=== PATIENT | female | born 1940 | race Caucasian/White ===

== ENCOUNTER → 2017-11-13 11:22 | Outpatient (CLI) | payer MEDICARE, SELFPAY ==
--- NOTE | 2017-11-13 11:27 | BI_ITS ---
MAMMOGRAPHY - BILATERAL SCREENING 3-D SHERIDAN SYNTHESIS REASON FOR EXAM: Female, 77 years old. Bilateral Screening 3-D tomosynthesis PERTINENT HISTORY: Asymptomatic. Bilateral excisional biopsies 1960. No significant family history. TECHNIQUE: 2-D mammograms and 3-D Sheridan synthesis of the breast (s) were performed. CAD was performed. COMPARISON: 01/11/2016 through 06/25/2013 FINDINGS: The breast composition is composed of scattered fibroglandular density. No new asymmetric density, dominant mass, dense spiculated masses, abnormal clustered microcalcifications, architectural distortion, skin thickening or nipple retraction identified. Coarse benign-appearing calcifications. No new abnormality identified with tomosynthesis. There has been no significant change since the prior study. BI/SCREENING MAMM (CAD), BILAT IMPRESSION: No mammographic signs of malignancy. Routine yearly mammograms recommended. ASSESSMENT CATEGORY: BIRADS Category 2: Benign. A letter regarding these results will be sent to the patient by the facility within 30 days. FOLLOW UP RECOMMENDATION: Yearly follow up mammogram recommended. (A) Negative results should not deter biopsy as a palpable lesion should be followed on clinical grounds and biopsy performed if clinically persistent for 3 months or increasing size. Approximately 10% of breast cancers are not detected by mammography. A normal mammogram should not delay biopsy of a clinically suspicious abnormality. Electronically Signed: Gerson Felipe, at 20:54 EDT Tel , Service support ,
== END ==
PROVIDERS: Family Provider Nurse Practitioner; PCP Nurse Practitioner; Visit Provider Nurse Practitioner
DX: Z78.0 Asymptomatic menopausal state (principal); Z12.31 Encounter for screening mammogram for malignant neoplasm of breast
CPT/HCPCS: 77063; 77067; 77080

== ENCOUNTER → 2019-01-06 | Outpatient (CLI) | payer MEDICARE, SELFPAY ==
--- NOTE | 2019-01-06 12:54 | BI_ITS ---
MAMMOGRAPHY - BILATERAL SCREENING REASON FOR EXAM: Female, 78 years old. Routine annual screening examination. PERTINENT HISTORY: Non-contributory. History of bilateral excisional breast biopsies. TECHNIQUE: Digital bilateral breast sheridan (3D mammographic acquisition) in the CC and MLO projections. 2-D mediolateral oblique (MLO) and craniocaudad (CC) views of both breasts were obtained. CAD: Full Field Digital Mammography with Computer Added Detection was performed. COMPARISON: Comparison is made with prior study dated November 13, 2017 and January 11, 2016. FINDINGS: Breast Composition: There are scattered areas of fibroglandular density. There are no dominant masses or suspicious calcifications. Stable coarse benign-appearing calcifications more prominent in the right breast. No focal cluster is seen. No other significant abnormalities are identified. There has been no significant change since the prior study. BI/SCREEN MAMM (CAD) W/SHERIDAN BILAT IMPRESSION: Stable bilateral screening mammogram. Yearly follow-up mammogram recommended. (A) ASSESSMENT CATEGORY: BIRADS Category 2: Benign. A letter regarding these results will be sent to the patient by the facility within 30 days. Approximately 10% of breast cancers are not detected by mammography. A normal mammogram should not delay biopsy of a clinically suspicious abnormality. [id number] Electronically Signed: Nawaf Morelos, at 14:23 EDT , Service support ,
== END | disposition home or self-care (01) ==
LOC: OPBI 12:52
PROVIDERS: Family Provider Nurse Practitioner; PCP Nurse Practitioner; Referring Provider Nurse Practitioner; Visit Provider Nurse Practitioner
DX: Z12.31 Encounter for screening mammogram for malignant neoplasm of breast (principal)
CPT/HCPCS: 77063; 77067

== ENCOUNTER 2019-04-25 14:50 | Emergency (ER) | payer MEDICARE, SELFPAY ==
[2019-04-25 14:50] VITALS: BP 156/81; PULSE 68; RESP 16; TEMP 36.6; O2SAT 97; BMI 21.2
--- NOTE | 2019-04-25 15:07 | ED.VISSUMM ---
- ER Visit Summary Date of Service: 04/25/19 Chief Complaint: [Laceration to right ring finger] History of Present Illness: The patient is a 79 F [presents to the emergency department complaint of a laceration to the right ring finger that occurred about an hour ago. Patient states that she was cutting some kindling for a fire when she accidentally bumped to the sawblade with her finger when she went to reach to turn it off. Patient is right-hand dominant. She is unsure of her last tetanus shot.] Physical Examination: [Right ring finger-patient has a 2.5 cm laceration over the distal phalanx and involving the area of the volar aspect of the DIP joint. Patient has normal flexion extension against resistance. She is neurovascular intact distally. No significant bleeding noted currently.] The wound edges are macerated and irregular given the table saw injury. Test Results: [Of the right ring finger obtained which did not show any involvement of the phalanx. No particulate foreign bodies noted. Interpretation by radiology pending.] Emergency Department Course and Treatment: [Laceration repair-wound sterilely draped and prepped. Right ring finger anesthetized using a digital block total of 6 cc of 1% lidocaine. Wound cleansed with Shur-Clens and irrigated with copious saline. The wound was inspected and I do not see any evidence of involvement of Lexer tendon. The laceration actually is approximately 7 mm distal to the DIP joint. Using 5-0 nylon a total of 4 single interrupted sutures placed with good wound edge approximation. Patient tolerated procedure well. Clean dressing was applied. Patient received Adacel tetanus booster. Patient was given Keflex 500 mg p.o.] Treatment Plan: [We will be treated with Keflex for 7 days. Patient advised to follow-up in 10 days for suture removal. Patient advised to return if increasing pain, redness, swelling, purulent drainage, or conditions worsen anyway.] Disposition: [Discharged home in stable condition.] Impression: [Right ring finger laceration-simple repair] This note was generated with [email or web address] software. It may contain incorrect words, spelling, and punctuation that were not noted in review of the chart prior to signing ED Disposition - Plan for ED Patient: Referrals: Urvashi Aiken, REBECCA-C [Primary Care Provider] -
--- NOTE | 2019-04-25 15:20 | RAD_ITS ---
STUDY: X-RAY - RIGHT HAND, ATTENTION 4 FINGER REASON FOR EXAM: Female, 79 years old. Laceration TECHNIQUE: 3 view(s) of the finger were obtained. COMPARISON: None. FINDINGS: There is no evidence of fracture or dislocation. There are no significant degenerative changes. There are no radiodense foreign bodies. There is a soft tissue laceration noted distally in the fourth finger. RAD/Finger(s) Min 2 Views IMPRESSION: Soft tissue laceration distally in the fourth finger. No fracture or dislocation. No radiodense foreign body. Electronically Signed: Ehsan Hanks, at 15:46 EST Tel , Service support ,
--- NOTE | 2019-04-25 15:45 | DCINST.ED_ITS ---
ED Disposition - Plan for ED Patient: Instructions: LACERATION, Hand Prescriptions: Cephalexin [Keflex] 500 mg PO Q6 #28 cap Prescription Printed Referrals: Urvashi Aiken, ASSOCIATE [employer] DATA [employer]NALYT[employer]-C [Primary Care Provider] - 10 Day for suture removal
--- NOTE | 2019-04-25 15:45 | ED.DEP ---
ED Disposition - Plan for ED Patient: Instructions: LACERATION, Hand Prescriptions: Cephalexin [Keflex] 500 mg PO Q6 #28 cap Prescription Printed Referrals: Urvashi Aiken, WAITER/WAITRESS BUFFET-C [Primary Care Provider] - 10 Day for suture removal
[2019-04-25] MEDS: Diphth,Pertuss(Acell),Tet Vac 0.5 ML Vial IM (15:46)
[2019-04-25] MEDS: Cephalexin 250 MG Capsule 500 MG PO (16:01)
[2019-04-25 16:02] VITALS: BP 107/97; RESP 14
== END 2019-04-25 16:05 | disposition home or self-care (01) ==
LOC: ED 15:09
PROVIDERS: Emergency Provider Emergency Medicine; PCP Nurse Practitioner; Referring Provider Nurse Practitioner
DX: S61.214A Laceration without foreign body of right ring finger without damage to nail, initial encounter (principal); Z23 Encounter for immunization; I10 Essential (primary) hypertension; Z79.899 Other long term (current) drug therapy; W29.8XXA Contact with other powered hand tools and household machinery, initial encounter; Y93.89 Activity, other specified; Y92.009 Unspecified place in unspecified non-institutional (private) residence as the place of occurrence of the external cause; Y99.8 Other external cause status
CPT/HCPCS: 12001; 73140; 90471; 90715; 99284

== ENCOUNTER → 2019-12-29 | Outpatient (CLI) | payer MEDICARE, SELFPAY ==
--- NOTE | 2019-12-29 10:31 | BD_ITS ---
STUDY: DUAL ENERGY X-RAY ABSORPTIOMETRY / DXA REASON FOR EXAM: Female, 79 years old. 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 COMPARISON: Comparison is made with prior study dated 07/08/2014. FINDINGS: Lumbar Spine (L1-L4): g/cm2 (1.014) / T-score (-1.4) / Z-score (0.4) Findings are suggestive of osteopenia with a low fracture risk. Increased thoracic kyphosis. Left Femur Total: g/cm2 (0.792) / T-score (-1.7) / Z-score (0.2) Left Femoral Neck: g/cm2 (0.864) / T-score (-1.2) / Z-score (0.8) Right Femur Total: g/cm2 (0.791) / T-score (-1.7) / Z-score (0.2) Right Femoral Neck: g/cm2 (0.876) / T-score (-0.2) / Z-score (0.9) The T-Scores on the most recent prior examination were: Lumbar Spine (L1-L4): There has been improvement of bone density since the previous examination. Left Femur Total: which represents a worsening of 2.2%. Right Femur Total: which represents an improvement of 5.3%. BD/Dexa Bone Density Study IMPRESSION: The patient is considered osteopenic as outlined below according to World [place] Organization (WHO) criteria with a moderate fracture risk. There has been improvement of bone density since the previous examination. Reference Information: The T-score is the number of standard deviations above or below the standard which is normal for young adults at their peak bone mineral density. The World Health Organization (WHO) interprets the T-scores as follows: Above -1 Normal bone density Between -1 and -2.5 Osteopenia Equal to / or below -2.5 Osteoporosis As a practical clinical guideline, osteopenia may be graded as follows: Mild -1 through -1.5 Moderate -1.6 through -2.0 Severe -2.1 through -2.4 The Z-score is the number of standard deviations above or below age-matched controls. A Z-score of less than -1.5 would be considered abnormal. References: 1. NIH Osteoporosis and Related Bone Diseases http://www.osteo.org 2. International Society for Clinical Densitometry http://www.iscd.org 3. National Osteoporosis Foundation http://www.nof.org Electronically Signed: Nawaf Morelos, at 12:43 EDT , Service support ,
== END | disposition home or self-care (01) ==
LOC: OPBD 10:26
PROVIDERS: PCP Nurse Practitioner; Referring Provider Nurse Practitioner; Visit Provider Nurse Practitioner
DX: M81.0 Age-related osteoporosis without current pathological fracture (principal)
CPT/HCPCS: 77080

== ENCOUNTER → 2020-09-09 07:11 | Outpatient (CLI) | payer MEDICARE, SELFPAY ==
[2020-09-01 14:06] VITALS: BMI 22.2
--- NOTE | 2020-09-09 07:12 | ECHOD_ITS ---
Reason For Study: Nonrheumatic MVP Procedure This was a 2D Doppler, Color Flow transthoracic echocardiogram. The exam was of adequate technical quality. Exam performed in department. Left Ventricle Normal LV size. Left ventricular systolic function is normal. The estimated ejection fraction is 60 %. Diastolic function is indeterminate. No regional wall motion abnormalities noted. Right Ventricle Normal RV size. Normal systolic function. Atria The left atrium is mildly enlarged. Normal right atrium. No doppler evidence for ASD. Mitral Valve There is no mitral annular calcification. Moderate diffuse mitral valve thickening. Myxomatous mitral valve. Moderate mitral valve prolapse. Moderate (2+) mitral valve insufficiency. Tricuspid Valve Normal tricuspid valve. Mild to moderate (1-2+) tricuspid valve insufficiency. Right ventricular systolic pressure estimated to be 30 mmHg. Aortic Valve Trisinus/trileaflet aortic valve. Normal aortic valve. Pulmonic Valve The pulmonic valve is not well visualized. Great Vessels The aortic root is not well visualized. Pericardium/Pleural No pericardial effusion. MMode/2D Measurements & Calculations LVIDd: 4.3 cm IVSd: 0.95 cm LA dimension: 3.9 cm LVIDs: 2.1 cm LVPWd: 0.99 cm RVDd: 3.3 cm FS: 51.2 % LAV(MOD-bp): 57.6 ml LA A4 area: 19.9 cm2 RA A4 area: 14.2 cm2 LAV(MOD-bp) Indexed: 40.3 ml/m2 LAV(MOD-sp2): 54.9 ml LAV(MOD-sp4): 60.0 ml Time Measurements MV dec time: 0.52 sec Doppler Measurements & Calculations MV E max francesco: 51.1 cm/sec Lat Peak E' Francesco: 4.4 cm/sec Med Peak E' Francesco: 4.5 cm/sec MV A max francesco: 80.9 cm/sec E/E' lat: 11.6 E/E' med: 11.5 MV E/A: 0.63 MV V2 max: 86.7 cm/sec MV P1/2t max francesco: 62.1 cm/sec Ao V2 max: 143.8 cm/sec MV max P.0 mmHg MV P1/2t: 95.6 msec Ao max P.3 mmHg MV V2 mean: 40.1 cm/sec MV dec slope: 190.4 cm/sec2 MV mean P.79 mmHg MVA(P1/2t): 2.3 cm2 MV V2 VTI: 28.9 cm LV V1 max: 116.1 cm/sec PA V2 max: 84.7 cm/sec LV V1 max P.4 mmHg PI dec slope: 165.5 cm/sec2 TR max francesco: 261.7 cm/sec TR max P.4 mmHg ECHO/Echo Complete Interpretation Summary Left ventricular systolic function is normal. The estimated ejection fraction is 60 %. The left atrium is mildly enlarged. Myxomatous mitral valve. Moderate diffuse mitral valve thickening. Moderate mitral valve prolapse. Moderate (2+) mitral valve insufficiency. Mild to moderate (1-2+) tricuspid valve insufficiency. Right ventricular systolic pressure estimated to be 30 mmHg. Diastolic function is indeterminate. Ordering Physician: Juan Manuel Robertson Referring Physician: Urvashi Aiken Performed By: Iftikhar English RCS
--- NOTE | 2020-09-09 08:56 | STRESSREP_ITS ---
Stress Test Report Date: 09-09-2020 Procedure: Exercise tolerance test/imaging study Indications: Near syncope; sinus bradycardia; abnormal ECG Consent: Per the patient Procedure: The patient exercised on a Pa protocol for 5 minutes and 43 seconds completing Stage I and 2 minutes and 43 seconds of Stage II achieving a peak heart rate of 108 bpm (77% predicted maximal heart rate) with a peak blood pressure 162/80 mmHg and a peak MET capacity of 7 METs. The baseline ECG demonstrated sinus bradycardia; right IVCD pattern; nonspecific T wave abnormality. The peak exercise ECG demonstrated continued right IVCD pattern with no obvious ECG changes. There was an occasional PVC during exercise and recovery. The functional capacity was considered. There was no complaint of chest discomfort during exercise or recovery. The examination was discontinued secondary to leg discomfort and fatigue. Impression: 1. Technically adequate (percent predicted maximal heart rate greater than 85%) exercise tolerance test 2. Peak exercise ECG continued right IVCD pattern with no obvious ECG changes 3. There was an occasional PVC during exercise and recovery 4. Nuclear images pending Myocardial perfusion imaging study: Technique: The patient was injected with 11.8 mCi of technetium 99m Cardiolite and subsequently rest SPECT Cardiolite nuclear imaging was obtained in the horizontal long, vertical long, and short axis views. The patient exercised on a Pa protocol for 5 minutes and 43 seconds completing Stage I and 2 minutes and 43 seconds of Stage II achieving a peak heart rate of 108 bpm (77% predicted maximal heart rate) with a peak blood pressure 162/80 mmHg and a peak MET capacity of 7 METs. The patient was injected with 32.5 mCi of technetium 99m Cardiolite and subsequently stress SPECT Cardiolite nuclear imaging was obtained in the horizontal long, vertical long, and short axis views. A gated Cardiolite study at peak stress was obtained. Interpretation: Rest and stress SPECT Cardiolite nuclear imaging status post realignment, normalization, and attenuation correction, demonstrates the appearance of relative uniform tracer uptake and myocardial perfusion appearing within normal limits. There is end systolic thickening and brightening. The gated Cardiolite study demonstrates myocardial thickening and inward wall motion. The reported LVEF is 79%. Impression: 1. Rest and stress SPECT Cardiolite nuclear imaging demonstrate relative uniform tracer uptake and myocardial perfusion appearing within normal limits. 2. The gated Cardiolite study reports an LVEF of 79%. This note was generated with [employer] software. It may contain incorrect words, spelling, and punctuation that were not noted in checking the note before signing.
== END ==
PROVIDERS: PCP Nurse Practitioner; Referring Provider Internal Medicine Cardiovascular Disease; Visit Provider Internal Medicine Cardiovascular Disease
DX: I34.1 Nonrheumatic mitral (valve) prolapse (principal); R94.31 Abnormal electrocardiogram [ECG] [EKG]; R55 Syncope and collapse; E78.00 Pure hypercholesterolemia, unspecified; I10 Essential (primary) hypertension
CPT/HCPCS: 78452; 93017; 93306; A9500; A4216

== ENCOUNTER → 2021-09-29 | Outpatient (CLI) | payer MEDICARE, SELFPAY ==
--- NOTE | 2021-09-29 10:05 | ECHOD_ITS ---
Reason For Study: MVP Procedure This was a 2D Doppler, Color Flow transthoracic echocardiogram. The exam was of adequate technical quality. Exam performed in department. Left Ventricle Normal LV size. Left ventricular systolic function is normal. The estimated ejection fraction is 65 %. There is evidence of diastolic dysfunction. No regional wall motion abnormalities noted. Right Ventricle Normal RV size. Normal systolic function. Atria The left atrium is moderately enlarged. Normal right atrium. Hypermobile atrial septum. No doppler evidence for ASD. Mitral Valve There is no mitral annular calcification. Moderate diffuse mitral valve thickening. Myxomatous mitral valve. Moderate mitral valve prolapse, posterior leaflet. Moderate (2+) mitral valve insufficiency. Tricuspid Valve Normal tricuspid valve. Mild tricuspid valve insufficiency. Right ventricular systolic pressure estimated to be 30 mmHg. Aortic Valve Trisinus/trileaflet aortic valve. Normal aortic valve. Pulmonic Valve Normal pulmonic valve. Mild (1+) pulmonic valve insufficiency. Great Vessels Normal sized aortic root. Calcified aortic root. Pericardium/Pleural Trivial pericardial effusion. There are no echocardiographic indications of cardiac tamponade. MMode/2D Measurements & Calculations LVIDd: 4.1 cm IVSd: 0.79 cm Ao root diam: 2.9 cm LVIDs: 2.4 cm LVPWd: 0.89 cm RVDd: 2.8 cm FS: 43.1 % LAV(MOD-bp): 66.0 ml LVAd ap4: 21.8 cm2 SV(MOD-sp4): 38.8 ml LAV(MOD-bp) Indexed: 47.1 ml/m2 LVLd ap4: 6.2 cm LAV(MOD-sp2): 63.3 ml EDV(MOD-sp4): 62.9 ml LAV(MOD-sp4): 61.3 ml EDV(sp4-el): 64.7 ml LVAs ap4: 11.8 cm2 LVLs ap4: 5.0 cm ESV(MOD-sp4): 24.1 ml ESV(sp4-el): 23.8 ml EF(MOD-sp4): 61.6 % EF(sp4-el): 63.2 % SV(sp4-el): 40.9 ml LA A4 area: 19.7 cm2 LA dimension(2D): 4.4 cm RA A4 area: 11.9 cm2 Doppler Measurements & Calculations MV E max francesco: 59.3 cm/sec Lat Peak E' Francesco: 5.6 cm/sec Med Peak E' Francesco: 3.4 cm/sec MV A max francesco: 74.7 cm/sec E/E' lat: 10.6 E/E' med: 17.3 MV E/A: 0.79 Ao V2 max: 150.8 cm/sec LV V1 max: 124.2 cm/sec PA V2 max: 91.5 cm/sec Ao max P.1 mmHg LV V1 max P.2 mmHg Ao V2 mean: 93.4 cm/sec Ao mean P.0 mmHg Ao V2 VTI: 30.8 cm TR max francesco: 260.2 cm/sec TR max P.1 mmHg ECHO/Echo Complete Interpretation Summary Left ventricular systolic function is normal. The estimated ejection fraction is 65 %. The left atrium is moderately enlarged. Hypermobile atrial septum. Myxomatous mitral valve. Moderate diffuse mitral valve thickening. Moderate mitral valve prolapse, posterior leaflet Moderate (2+) mitral valve insufficiency. Mild tricuspid valve insufficiency. Mild (1+) pulmonic valve insufficiency. Calcified aortic root. Trivial pericardial effusion. There are no echocardiographic indications of cardiac tamponade. Right ventricular systolic pressure estimated to be 30 mmHg. There is evidence of diastolic dysfunction. Ordering Physician: Deanna Breen Referring Physician: Giovanna Ruggiero Performed By: Mindy Thompson, TURNER, RVT
== END | disposition home or self-care (01) ==
LOC: CVS 10:00
PROVIDERS: PCP Nurse Practitioner Family; Visit Provider Physician Assistant Medical
DX: I34.1 Nonrheumatic mitral (valve) prolapse (principal)
CPT/HCPCS: 93306

== ENCOUNTER → 2022-01-02 | Outpatient (CLI) | payer MEDICARE, SELFPAY ==
--- NOTE | 2022-01-02 10:31 | BI_ITS ---
MAMMOGRAPHY - BILATERAL SCREENING REASON FOR EXAM: Female, 81 years old. Routine annual screening examination. PERTINENT HISTORY: Non-contributory. Remote bilateral excisional breast biopsies. TECHNIQUE: Digital bilateral breast sheridan (3D mammographic acquisition) in the CC and MLO projections. 2-D mediolateral oblique (MLO) and craniocaudad (CC) views of both breasts were obtained. CAD: Full Field Digital Mammography with Computer Added Detection was performed. COMPARISON: Comparison is made with prior study 01/06/2019 and 11/13/2017. FINDINGS: Breast Composition: There are scattered areas of fibroglandular density. There are no dominant masses or suspicious calcifications. No other significant abnormalities are identified. There has been no significant change since the prior study. BI/SCRN MAMM (CAD)W/SHERIDAN BILAT IMPRESSION: Stable bilateral screening mammogram. Yearly follow-up mammogram recommended. (A) ASSESSMENT CATEGORY: BIRADS Category 1: Negative. A letter regarding these results will be sent to the patient by the facility within 30 days. Approximately 10% of breast cancers are not detected by mammography. A normal mammogram should not delay biopsy of a clinically suspicious abnormality. [id number] Electronically Signed: Nawaf Morelos MD at 12:18 EDT ,
--- NOTE | 2022-01-02 10:36 | BD_ITS ---
STUDY: DUAL ENERGY X-RAY ABSORPTIOMETRY / DXA REASON FOR EXAM: Female, 81 years old. 733.00OsteoporosisBONE DENSITY REASON FOR EXAM TECHNIQUE: Bone Mineral Density (BMD) measurements of lumbar spine and bilateral hips were obtained. COMPARISON: Comparison is made with prior study 12/29/2019. FINDINGS: Lumbar Spine (L1-L4): g/cm2 (0.956) / T-score (-0.8) / Z-score (1.8) Findings are suggestive of normal bone density with a low fracture risk. Left Femur Total: g/cm2 (0.798) / T-score (-1.2) / Z-score (0.9) Left Femoral Neck: g/cm2 (0.743) / T-score (-1.0) / Z-score (1.3) Right Femur Total: g/cm2 (0.787) / T-score (-1.3) / Z-score (0.8) Right Femoral Neck: g/cm2 (0.736) / T-score (-1.0) / Z-score (1.3) The T-Scores on the most recent prior examination were: Lumbar Spine (L1-L4): There has been improvement of bone density since the previous examination. Left Femur Total: which represents an improvement of 9%. Right Femur Total: which represents an improvement of 7.6%. BD/Dexa Bone Density Study IMPRESSION: The patient is considered osteopenic as outlined below according to World [place] Organization (WHO) criteria with a low fracture risk. There has been improvement of bone density since the previous examination. Reference Information: The T-score is the number of standard deviations above or below the standard which is normal for young adults at their peak bone mineral density. The World Health Organization (WHO) interprets the T-scores as follows: Above -1 Normal bone density Between -1 and -2.5 Osteopenia Equal to / or below -2.5 Osteoporosis As a practical clinical guideline, osteopenia may be graded as follows: Mild -1 through -1.5 Moderate -1.6 through -2.0 Severe -2.1 through -2.4 The Z-score is the number of standard deviations above or below age-matched controls. A Z-score of less than -1.5 would be considered abnormal. References: 1. NIH Osteoporosis and Related Bone Diseases www osteo.org 2. International Society for Clinical Densitometry www iscd.org 3. National Osteoporosis Foundation www nof.org Electronically Signed: Nawaf Morelos MD at 12:50 EDT ,
== END | disposition home or self-care (01) ==
LOC: OPBD 10:30
PROVIDERS: PCP Nurse Practitioner Family; Visit Provider Nurse Practitioner Family
DX: Z12.31 Encounter for screening mammogram for malignant neoplasm of breast (principal); M85.80 Other specified disorders of bone density and structure, unspecified site; Z78.0 Asymptomatic menopausal state
CPT/HCPCS: 77063; 77067; 77080

== ENCOUNTER 2023-03-08 11:30 | Outpatient (RCR) | payer MEDICARE, SELFPAY ==
--- NOTE | 2023-03-05 13:46 | HP.PTEVAL ---
Patient's Visit Information Visit Information Visit Information: NURIA GAMEZ is a 82 year old F referred to Physical Therapy by Giovanna Ruggiero NP-C with a diagnosis of ACUTE THORACIC PAIN ,LBP WITH RADICULOPATHY. Date of Evaluation: 03/05/23 Physical Therapist: Christiano Schwab, PT, Cert MDT, OCS Visit Plan Frequency: 2x /Week Duration: 4 Weeks Plan: PRECAUTION: OSTEOPROSIS PT INVERENTION POSTURAL EX'S ,THORACIC STRENGTHNEING ,DLS , HIP STRENGTHENING AND FUNCTIONAL STRENGTHNEING Subjective Subjective: This 82 y/o female presents to physical therapy with thoracic and lumbar pain. Patient has pain mostly mid thoracic pain and upper lumbar no leg symptoms. Patient has mid back pain for ~ `1 month. Patient did have episode thoracic pain lifting box of water. bottle Initially, pain worse especially turning to bed. 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 No medication, Aggravating factors standing ,walking bending and twisting. Alleviating factors sitting ,heat, Coughing/sneezing -. Bowel/bladder -, Denies paresthesia/tingling-. Patient has no falls . Patient has osteoporosis and on Prolia injection every 6 months . Patient pain affects QOL and function with ADLS /housework's tasks. Patient to decrease pain. SOCIAL: VOCATION: retired Pain Bilateral Back: Pain Intensity (Out of 10): 4 Pain Intensity Range: 10 Comment: thoracic Objective Objective: POSTURE: mild/mod thoracic kyphosis with scoliosis PALPATION: tender paraspinals thoracic NEURO: denies paresthesia/tingling , BUE AROM: WFL MMT: quads/hams 4-/5 ,hip flexion 3+/5 ,ankle 4/5 ,BUE 4/5 except shoulder 3+/5 LUMBAR ROM: mod loss flexion , min loss extension ,side glides min loss THORACIC ROM: flexion mod loss ,extension extension mod loss ,rotation mod loss Special Tests L/S Slump test left side: Negative L/S Slump test right side: Negative L/S Left Straight Leg Raise: Negative L/S Right Straight Leg Raise: Negative Balance/Special Test Scores Oswestry Low Back Score: 21 Goals Goal 1:: Patient to be I with HEP for back Goal Time Frame: 4-6 Weeks Goal 2:: Patient to improve posture for ADLS 80 % of the time Goal Time Frame: 4-6 Weeks Goal 3:: Patient to demonstrate 50% improvement with increase function and less pain Goal Time Frame: 4-6 Weeks Goal 4:: Patient improve thoracic /lumbar ROM for function of recovery for ADLS Goal Time Frame: 4-6 Weeks Goal 5:: Patient to improve back oswestry score by 5 points to improve QOL and function Goal Time Frame: 4-6 Weeks Rehabilitation Potential Physical Therapy Diagnosis: This patient has thoracic pain with wedge compression fractures with pain ,decrease ROM for function ,weakness and posture thus will need skilled PT Rehabilitation Potential: Good Anticipated Interventions Patient/Client Instruction: Educate patient on: Condition and Plan of Care For the Purpose of:: To decrease pain, To increase ROM, To improve muscle performance and motor function, To improve ability to perform ADL's, To increase tolerance to activity/condition/position, To improve ability of physical actions for home/community/work/leisure, To improve health of tissue, To decrease soft tissue restriction, To increase flexibility/ROM and To improve tolerance to ADL's Therapeutic Exercise to Include: Strength training, Postural training, Flexibilty training, Active ROM and Dynamic Lumbar Stabilization Comment: HIP For the Purpose of:: To decrease pain, To increase ROM, To improve muscle performance and motor function, To improve ability to perform ADL's, To increase tolerance to activity/condition/position, To improve ability of physical actions for home/community/work/leisure, To improve health of tissue, To decrease soft tissue restriction and To increase flexibility/ROM Text: Thank you for the opportunity to evaluate your patient. For Medicare and Medicare HMO plans, please review the plan of care and approve it. It will need to be FAXED BACK to us at [phone] for Medicare purposes. For Medicare only, by signing this I certify the plan of care. Please let me know if there are questions or concerns regarding this plan of care. Physician Signature: Date:
== END 2023-03-08 19:00 | disposition home or self-care (01) ==
LOC: PT 11:30
PROVIDERS: PCP Nurse Practitioner Family; Visit Provider Nurse Practitioner Family
DX: M51.36 Other intervertebral disc degeneration, lumbar region (principal)
CPT/HCPCS: 97110; 97162

== ENCOUNTER 2023-05-17 14:50 | Inpatient (IN) | payer MEDICARE, SELFPAY ==
[2023-05-17] VITALS (16 sets, daily range): BP systolic 99–158; BP diastolic 58–83; PULSE 61–74; RESP 14–24; TEMP 36.2–37.1; O2SAT 2–100; BMI 38.7; BMI 22.3
--- NOTE | 2023-05-17 14:53 | CT_ITS ---
STUDY: CT HEAD STROKE PROTOCOL W/O CONTRAST INJECTION REASON FOR EXAM: Female, 83 years old. Neuro deficit, acute, stroke suspected RADIATION DOSAGE (If Supplied By Facility): CTDIvol = ( 44.99 ) mGy, DLP = ( 829.85 ) mGycm TECHNIQUE: Transaxial CT imaging of the brain was performed without administration of intravenous contrast material. Individualized dose optimization techniques were used for this CT. COMPARISON: No relevant priors. FINDINGS: Normal soft tissue structures. Normal calvarium. There is mild cerebral atrophy with widening of the extra-axial spaces and ventricular dilatation. There are areas of decreased attenuation within the white matter tracts of the supratentorial brain, consistent with microvascular disease changes. Focal decreased attenuation in the right frontal lobe suggestive of old ischemic change. Normal basal ganglia and thalami. Normal brainstem. Normal cerebellum. There is no intracranial hemorrhage. There are no findings of an acute ischemic infarction. Atherosclerotic calcification of the cavernous portions of the internal carotid arteries bilaterally. Minimal mucosal thickening along the posterior aspect of the left maxillary sinus. ASPECT score: 10 CT/STROKE Brain/Head without Cont IMPRESSION: Chronic involutional changes of the brain. Findings suggestive of old ischemic change in the anterior right frontal lobe. N.B. : The above Results were Read Back by Nawaf Morelos MD to Dr Odilia DO, and understanding confirmed on 05/17/2023 15:09:16 (ET). Electronically Signed: Nawaf Morelos MD at 15:10 EST ,
--- NOTE | 2023-05-17 14:53 | CT_ITS ---
STUDY: CTA HEAD AND NECK WITH CONTRAST REASON FOR EXAM: Female, 83 years old. Neuro deficit, acute, stroke suspected RADIATION DOSAGE (If Supplied By Facility): CTDIvol = ( 17.08 ) mGy, DLP = ( 477.86 ) mGycm TECHNIQUE: CT angiography was performed with a multi-detector CT scanner. Data acquisition was obtained from the skull base through the vertex following intravenous administration of IV 100mL Isovue-370. MIP images were reconstructed from the axial data set. Post-processing of the angiographic images was performed, with multiplanar reformation and 3D reconstruction. Individualized dose optimization techniques were used for this CT. COMPARISON: No relevant priors. FINDINGS: Normal bilateral petrous carotid arteries. There is calcified plaque formation of the right cavernous carotid artery, without a cross-sectional luminal stenosis. There is calcified plaque formation of the left cavernous carotid artery, without a cross-sectional luminal stenosis. Normal right A1 segments of the anterior cerebral artery. Normal left A1 segments of the anterior cerebral artery. Normal intact anterior communicating artery (ACOM). Normal bilateral A2 segments of the anterior cerebral arteries. Normal right M1 and M2 segments of the middle cerebral arteries, with a normal M1 bifurcation. Normal left M1 and M2 segments of the middle cerebral arteries, with a normal M1 bifurcation. Normal right posterior communicating artery (PCOM). Normal left posterior communicating artery (PCOM). Normal bilateral vertebral arteries. Normal basilar artery with a normal basilar bifurcation. The visualized bilateral superior cerebellar (SCA) arteries are normal. Normal bilateral P1, P2 and visualized P3 segments of the posterior cerebral arteries. There is no demonstrated aneurysm of the [place]. AORTIC ARCH: There is mild atherosclerotic calcific plaque formation of the aortic arch and great vessels arising from the aortic arch, without a hemodynamically significant stenosis. There is a normal origin of the brachiocephalic, left common carotid, and left subclavian arteries. RIGHT CAROTID ARTERIES: Normal right common carotid artery (CCA). Normal right common carotid bulb. There is mild atherosclerotic plaque formation of the origin of the right internal carotid artery with less than 50% cross sectional diameter stenosis. Normal visualized cervical portion of the right internal carotid artery. Normal origin of the right external carotid artery (ECA). LEFT CAROTID ARTERIES: Normal left common carotid artery (CCA). Normal left common carotid bulb. Normal origin of the left internal carotid (ICA) artery without a hemodynamically significant stenosis. Normal visualized cervical portion of the left internal carotid artery. Normal origin of the left external carotid artery (ECA). VERTEBRAL ARTERIES: Normal bilateral vertebral arteries. CT/STROKE CTA Head AND Neck W/Con IMPRESSION: Minimal calcific plaque at the origin of the right internal carotid artery. N.B. : The above Results were Read Back by Nawaf Morelos MD to Gabe Zhong and understanding confirmed on 05/17/2023 15:12:39 (ET). Electronically Signed: Nawaf Morelos MD at 15:14 EST ,
--- NOTE | 2023-05-17 14:54 | ED.VIS.STROK ---
HPI History of Present Illness Chief Complaint: Stroke Alert Informant: patient, EMS and PCP Onset/Context/Timing Onset: Today Context: Sudden Onset Timing: Continuous Quality and Location: Positive for Left Arm Weakness and Left Leg Weakness Worsened by: Nothing Relieved by: Nothing Associated Symptoms Associated Symptoms: Negative for Headache, Nausea, Vomiting or Chest Pain Narrative Narrative: Patient presents as a stroke alert. Patient had a kyphoplasty done today. After the procedure, patient was having difficulty using her left arm and left leg. Surgeon reports that the patient was under local MAC anesthesia and was only under anesthesia for approximately 15 minutes. Patient denies any difficulty breathing or difficulty swallowing. Patient's last known well was noon today just prior to the procedure. Patient denies any headaches. Patient denies any chest pain. Patient denies any nausea or vomiting. [facility] Medical History Abnormal electrocardiogram Essential hypertension GERD (gastroesophageal reflux disease) Hypothyroidism Mitral valve insufficiency Near syncope Nonrheumatic mitral (valve) prolapse Pure hypercholesterolemia Home Medications levothyroxine 75 mcg tablet 75 mcg PO DAILY 03/11/17 [History Last Taken 05/17/23] denosumab 60 mg/mL subcutaneous syringe (Prolia) 60 mg subcut [id number] 08/30/20 [History Last Taken 03/20/23] fexofenadine 180 mg tablet (Heidi Allergy) 180 mg PO DAILY PRN ALLERGIES 08/30/20 [History Last Taken 05/16/23] fluticasone propionate 50 mcg/actuation nasal spray,suspension (Flonase Allergy Relief) 1 spray intranasal DAILY PRN allergy symptoms 08/30/20 [History Last Taken Unknown] biotin 800 mcg tablet 800 mcg PO DAILY 09/01/20 [History Last Taken 05/16/23] calcium carbonate 600 mg-vitamin D3 12.5 mcg (500 unit) capsule (Calcium 600 with Vitamin D3) 1 cap PO DAILY 09/01/20 [History Last Taken 05/16/23] cholecalciferol (vitamin D3) 25 mcg (1,000 unit) capsule 25 mcg PO DAILY 09/01/20 [History Last Taken 05/16/23] multivitamin 1 tab PO DAILY 09/01/20 [History Last Taken 05/16/23] rosuvastatin 5 mg tablet 5 mg PO DAILY 09/01/20 [History Last Taken 05/16/23] amlodipine 10 mg tablet 10 mg PO DAILY 05/17/23 [History Last Taken 05/16/23] levothyroxine 150 mcg tablet (Euthyrox) 150 mcg PO DAILY 05/17/23 [History Last Taken 05/15/23] lorazepam 0.5 mg tablet 0.5 mg PO DAILY 05/17/23 [History Last Taken Unknown] losartan 100 mg tablet 100 mg PO DAILY 05/17/23 [History Last Taken 05/16/23] montelukast 10 mg tablet 10 mg PO DAILY 05/17/23 [History Last Taken 05/16/23] montelukast 10 mg tablet (Singulair) 10 mg PO DAILY 05/17/23 [History Last Taken 05/16/23] omeprazole 40 mg capsule,delayed release 40 mg PO DAILY 05/17/23 [History Last Taken 05/17/23] sertraline 100 mg tablet 100 mg PO Q24H 05/17/23 [History Last Taken 05/16/23] Allergy/AdvReac Type Severity Reaction Status Date / Time Sulfa (Sulfonamide Allergy Unknown Verified 09/06/21 11:06 Antibiotics) Family History Mother Heart disease Diabetes Hypertension Father Myocardial infarction CVA (cerebral vascular accident) Surgical History History of bilateral cataract extraction Social History Smoking Status: Never smoker alcohol intake: current details: occasional substance use type: does not use caffeine: Yes ROS ROS ED Constitutional Constitutional ED: Denies chills or fever(s) Eyes Eyes: Denies blurry vision or change in vision ENT ENT ED: Denies rhinorrhea or sore throat Cardiovascular Cardiovascular: Denies chest pain or palpitations Respiratory/Chest Respiratory/Chest: Denies cough or dyspnea Gastrointestinal Gastrointestinal: Denies nausea or vomiting Genitourinary Genitourinary ED: Denies dysuria or hematuria Musculoskeletal Musculoskeletal: Denies back pain or neck pain Integumentary Denies abscess or rash Neurologic Neurologic: Reports weakness; Denies headache(s) Allergic/Immunologic Allergic/Immunologic ED: Denies mouth swelling or urticaria EXAM Physical Exam Const Vital Signs: 05/17/23 14:59 05/17/23 14:53 05/17/23 14:53 Temperature 98.0 F Temperature Source Oral Pulse Rate 68 72 Respiratory Rate 21 H Blood Pressure 157/74 H Blood Pressure Mean 101 Pulse Ox 95 2 96 Oxygen Delivery Method Room Air Nasal Cannula Nasal Cannula Oxygen Flow Rate (L/min) 2 05/17/23 14:53 05/17/23 15:23 05/17/23 15:30 Temperature 98 F Temperature Source Oral Pulse Rate 68 66 63 Respiratory Rate 19 H 24 H 20 H Blood Pressure 151/68 H 151/68 H 156/82 H Blood Pressure Mean 95 95 106 Pulse Ox 87 96 96 Oxygen Delivery Method Room Air Nasal Cannula Nasal Cannula Oxygen Flow Rate (L/min) 2 2 05/17/23 15:44 Temperature Temperature Source Pulse Rate 63 Respiratory Rate 20 H Blood Pressure 156/82 H Blood Pressure Mean 106 Pulse Ox 96 Oxygen Delivery Method Oxygen Flow Rate (L/min) Positive well nourished and well developed General Appearance ED: well developed and NAD HEENT Reports moist mucous membranes Eyes PERRL and EOMs intact bilaterally Neck supple and no JVD Resp normal respiratory effort and clear to auscultation bilaterally Neuro oriented x3, CN's II-XII intact bilaterally and no sensory deficits noted Neuro Narrative: There is weakness of the left upper extremity. Patient was unable to hold her left arm up for more than a few seconds. Patient was able to hold her left leg off of the bed for 5 full seconds. There is no right-sided weakness. Sensation was intact to light touch bilaterally in the upper and lower extremities. There is no facial weakness. Elena Coma Scale: document GCS findings Spontaneous Obeys Commands Oriented 15 Sensorium / Orientation: alert Speech: speech normal Psych mental status grossly normal NIHSS NIHSS Initial: 1a Level of Consciousness: 0 1b LOC Questions (Score 2 if aphasic/stupor): 0 1c LOC Commands (Only score 1st attempt): 0 2 Best Gaze (If aphasic, use reflexive mvmts.): 0 3 Visual: 0 4 Facial Palsy: 0 5 Motor Arm Right (UN = amputation/fusion): 0 5 Motor Arm Left: 2 6 Motor Leg Right: 0 6 Motor Leg Left: 0 7 Limb ataxia (Only + if out of proportion): 1 8 Sensory (Aphasia/stupor=0 or 1, coma=2): 0 9 Best Language: 0 10 Dysarthria (mute, coma=2, intubated=UN): 0 11 Extinction and Inattention (only scored if +): 0 Total Score: 3 MDM MDM MDM Narrative Medical decision making narrative: Differential diagnosis includes stroke, intracranial bleeding, infection, and medication side effect. CT scan of the brain will be obtained to assess for stroke and intracranial bleeding. CTA of the head and neck will be obtained to assess for large vessel occlusion. Chest x-ray will be obtained to assess for pneumonia and pneumothorax. EKG will be obtained to assess for cardiac dysrhythmia and cardiac ischemia. CBC will be obtained to assess for leukocytosis and anemia. Basic metabolic profile will be obtained to assess for electrolyte abnormality and renal function. PT was INR and PTT will be obtained to assess for coagulopathy. High-sensitivity troponin will be obtained to assess for cardiac ischemia. Lab Data Attestation: I reviewed the patient's lab results. Lab results narrative: CBC was reviewed and was within normal limits. PT with INR and PTT were reviewed and were within normal limits. Labs: Laboratory Results - last 24 hr 05/17/23 14:55 WBC 8.5 RBC 4.31 Hgb 12.2 Hct 38.7 MCV 89.8 MCH 28.3 MCHC 31.5 L RDW Std Deviation 48.1 H RDW Coeff of Vesna 14.6 Plt Count 267 MPV 9.9 Immature Gran % (Auto) 0.500 Neut % (Auto) 83.5 H Lymph % (Auto) 10.6 L Randall % (Auto) 4.9 Eos % (Auto) 0.4 Baso % (Auto) 0.1 Absolute Neuts (auto) 7.1 Absolute Lymphs (auto) 0.90 Nucleated RBC % 0 PT 12.8 INR 1.0 APTT 24.8 Radiography Diagnostic Testing: Clinical Impression(s) from Imaging Studies Brain CT 05/17/23 14:53 IMPRESSION: Chronic involutional changes of the brain. Findings suggestive of old ischemic change in the anterior right frontal lobe. N.B. : The above Results were Read Back by Nawaf Morelos MD to Dr Odilia DO, and understanding confirmed on 05/17/2023 15:09:16 (ET). Electronically Signed: Nawaf Morelos MD at 15:10 EST , Head/Neck CTA 05/17/23 14:53 IMPRESSION: Minimal calcific plaque at the origin of the right internal carotid artery. N.B. : The above Results were Read Back by Nawaf Morelos MD to Gabe Zhong and understanding confirmed on 05/17/2023 15:12:39 (ET). Electronically Signed: Nawaf Morelos MD at 15:14 EST , ADDENDUM: 05/17/23 1521 IMPRESSION: Minimal calcific plaque at the origin of the right internal carotid artery. N.B. : The above Results were Read Back by Nawaf Morelos MD to Gabe Zhong and understanding confirmed on 05/17/2023 15:12:39 (ET). Electronically Signed: Nawaf Morelos MD at 15:14 EST , CT scan of the brain was obtained. There is a subacute infarct in the right frontal lobe. There is no bleeding noted. There are chronic changes noted. This was interpreted by the radiologist and was also independently reviewed by myself. CTA of the head and neck was obtained. There is minimal calcific plaque at the origin of the right internal carotid artery. There is no large vessel occlusion noted. This was interpreted by the radiologist and was also independently reviewed by myself. EKG Initial EKG: Attestation: I personally reviewed and interpreted this EKG as follows: Interpretation: Sinus Rhythm (66), RBBB, LAFB and Non-Specific ST Changes Comments: EKG was obtained. On my independent interpretation, it shows normal sinus rhythm with a rate of 66. NE interval was normal at 198 ms. QRS interval slightly prolonged at 132 ms. QTc interval was slightly prolonged at 482 ms. There is left axis deviation at -58. There is a right bundle branch block pattern noted. There are some nonspecific ST-T wave changes noted. There is a left anterior fascicular block pattern noted. Prior EKG tracings: available for review Prior: Unchanged (10/15/2022) Management Discussion w/another healthcare provider: Hospitalist and Immigration Services Officer Treatment and Re-Evaluation Narrative: Patient was evaluated by stroke neurology from [facility]. They did not recommend tenecteplase because the symptoms are improving. They recommended starting patient on aspirin and admitting the patient here for further stroke workup. Case was discussed with the hospitalist. She will admit the patient to her service for observation. Patient and family understood and were agreeable with the plan. All questions were answered. Stroke Documentation Questions Stroke Team Activated: Yes Reviewed Inclusion/Exclusion criteria: Yes Was Patient considered for Endovascular Intervention?: No-CTA negative, determined not to be an endovascular candidate IV Thrombolytic Administered: No (Symptoms are improving and risk of bleeding outweighs benefit.) Risks, Benefits, Alternatives Discussed: Yes Discharge Plan Dx/Rx/DC Orders Clinical Impression: Essential hypertension, Stroke Disposition Disposition: Acute Care Hospital [facility]
[2023-05-17 15:02] LABS: Absolute Neutrophil Count 7.1 X10^3/uL (2.0-7.7); Basophil# 0.01 X10^3/uL; Basophil% 0.1 % (0-1); Eosinophil# 0.03 X10^3/uL; Eosinophils% 0.4 % (0-5); Hematocrit 38.7 % (37-47); Hemoglobin 12.2 g/dL (12.0-15.0); Lymphocyte % 10.6 % (19-41); Mean Corp Hgb Conc 31.5 g/dL (32-36); Mean Corpuscular Hgb 28.3 pg (27.0-32.0); Mean Corpuscular Volume 89.8 fL (81-99); Mean Platelet Vol. 9.9 fl (6.2-12.0); Monocyte# 0.42 X10^3/uL; Monocyte% 4.9 % (0-10); NRBC Flagged by Analyzer 0 % (0-5); Neutrophil # 7.09 X10^3/uL (2.7-7.7); Neutrophil % 83.5 % (47-70); Platelet Count 267 K/mm3 (150-450); RBC Distribution Width CV 14.6 % (11.6-14.6); RBC Distribution Width SD 48.1 fl (35.1-43.9); Red Blood Count 4.31 M/mm3 (4.2-5.4); White Blood Count 8.5 K/mm3 (4.4-11.0)
[2023-05-17 15:13] LABS: Prothrombin Time (Protime)PT. 12.8 SECONDS (11.7-14.9)
[2023-05-17 15:14] LABS: Partial Thromboplast Time 24.8 Seconds (24.1-36.2)
--- NOTE | 2023-05-17 15:55 | RAD_ITS ---
STUDY: X-RAY CHEST REASON FOR EXAM: Female, 83 years old. Neuro deficit, acute, stroke suspected TECHNIQUE: Single frontal view of the chest. COMPARISON: March 11, 2017 FINDINGS: The lungs are clear and expanded. There is no demonstrated pleural abnormality. Cardiomegaly. Normal mediastinum and sandor. Normal visualized pulmonary arteries. Normal visualized aortic arch and descending thoracic aorta. Mild scoliosis. Multiple midthoracic compression fractures. New midthoracic vertebral plasty. Multiple old rib fractures on the right. Old humeral neck fracture on the right. Normal visualized ribs, clavicles, and shoulders. There is no demonstrated abnormality of the visualized soft tissue structures of the upper abdomen. RAD/Chest 1 View IMPRESSION: No acute disease. Multiple old fractures. Electronically Signed: Steve Gamino MD at 16:41 EST ,
--- NOTE | 2023-05-17 15:59 | PCM.HP.STD ---
HPI - General General Date of Admission: 05/17/23 Date of Service: 05/17/23 Chief Complaint: CVA r/o, left sided weakness HPI Narrative NURIA GAMEZ, is a 83y/o female with a history of GERD, hypertension, hypothyroidism, depression who presented to [facility] ED 05/17/2023 as a stroke alert. She had a kyphoplasty done today and after the procedure was having difficulty using her left arm and left leg, was only under MAC anesthesia for approximately 15 minutes. Last known well noon today just prior to procedure. No other complaints aside from the left arm and left leg weakness. NIH in ED was 3. CT head w/ chronic changes and findings suggestive of old ischemic change in anterior right frontal lobe. CTA minimal calcific plaque at origin of right internal carotid artery. Patient evaluated by teleneurology who reviewed the CT and thought that it appeared to be a subacute right frontal ischemic stroke likely the cause of her left-sided symptoms however this does not match up with timeline of no symptoms prior to surgery. Patient was not a TNK candidate. Hospitalist contacted for stroke rule out admission. Patient evaluated with family at bedside, she reports being in her usual health until she woke up from anesthesia and had the left arm and leg weakness which have rapidly been improving and are almost back to normal. She also had been slow with her talking though not necessarily slurred but that is also improving. Only active complaint at this time is a dull headache. Denied any sensory changes with the weakness and no changes in vision. [facility] Medical History Abnormal electrocardiogram Essential hypertension GERD (gastroesophageal reflux disease) Hypothyroidism Mitral valve insufficiency Near syncope Nonrheumatic mitral (valve) prolapse Pure hypercholesterolemia Home Medications levothyroxine 75 mcg tablet 75 mcg PO DAILY 03/11/17 [History Last Taken Unknown] denosumab 60 mg/mL subcutaneous syringe (Prolia) 60 mg subcut [id number] 08/30/20 [History Last Taken Unknown] fexofenadine 180 mg tablet (Heidi Allergy) 180 mg PO DAILY PRN 08/30/20 [History Last Taken Unknown] fluticasone propionate 50 mcg/actuation nasal spray,suspension (Flonase Allergy Relief) 1 spray intranasal DAILY PRN allergy symptoms 08/30/20 [History Last Taken Unknown] biotin 800 mcg tablet 800 mcg PO DAILY 09/01/20 [History Last Taken Unknown] calcium carbonate 600 mg-vitamin D3 12.5 mcg (500 unit) capsule (Calcium 600 with Vitamin D3) 1 cap PO DAILY 09/01/20 [History Last Taken Unknown] cholecalciferol (vitamin D3) 25 mcg (1,000 unit) capsule 25 mcg PO DAILY 09/01/20 [History Last Taken Unknown] multivitamin 1 tab PO DAILY 09/01/20 [History Last Taken Unknown] rosuvastatin 5 mg tablet 5 mg PO DAILY 09/01/20 [History Last Taken Unknown] amlodipine 10 mg tablet 10 mg PO DAILY 05/17/23 [History Last Taken Unknown] levothyroxine 150 mcg tablet (Euthyrox) 150 mcg PO DAILY 05/17/23 [History Last Taken Unknown] losartan 100 mg tablet 100 mg PO DAILY 05/17/23 [History Last Taken Unknown] montelukast 10 mg tablet 10 mg PO DAILY 05/17/23 [History Last Taken Unknown] montelukast 10 mg tablet (Singulair) 10 mg PO DAILY 05/17/23 [History Last Taken Unknown] omeprazole 40 mg capsule,delayed release 40 mg PO DAILY 05/17/23 [History Last Taken Unknown] omeprazole 40 mg capsule,delayed release 40 mg PO DAILY 05/17/23 [History Last Taken Unknown] sertraline 100 mg tablet 100 mg PO Q24H 05/17/23 [History Last Taken Unknown] Allergy/AdvReac Type Severity Reaction Status Date / Time Sulfa (Sulfonamide Allergy Unknown Verified 09/06/21 11:06 Antibiotics) Family History Mother Heart disease Diabetes Hypertension Father Myocardial infarction CVA (cerebral vascular accident) Surgical History History of bilateral cataract extraction Social History Smoking Status: Never smoker alcohol intake: current details: occasional substance use type: does not use caffeine: Yes ROS ROS Narrative General: Denies fever/chills HENT: Denies headache, denies stuffy nose, denies sore throat EYES: Denies changes in vision, has some right lid droop after her shingles that has been persistent Resp: Denies cough, denies shortness of breath Cardiac: Denies chest pain GI: Denies abdominal pain, denies changes in bowel, denies nausea/vomiting : Denies changes in urination Extremity: Denies swelling MSK: Left upper and lower extremity weakness improving Neuro: Denies any numbness/tingling Heme: Denies any bleeding or bruising Skin: Denies rashes Psychiatric: No complaints voiced Vital Signs Vital Signs Vital Signs: 05/17/23 14:59 05/17/23 14:53 05/17/23 14:53 Temperature 98.0 F Temperature Source Oral Pulse Rate 68 72 Respiratory Rate 21 H Blood Pressure 157/74 H Blood Pressure Mean 101 Pulse Ox 95 2 96 Oxygen Delivery Method Room Air Nasal Cannula Nasal Cannula Oxygen Flow Rate (L/min) 2 05/17/23 14:53 05/17/23 15:23 05/17/23 15:30 Temperature 98 F Temperature Source Oral Pulse Rate 68 66 63 Respiratory Rate 19 H 24 H 20 H Blood Pressure 151/68 H 151/68 H 156/82 H Blood Pressure Mean 95 95 106 Pulse Ox 87 96 96 Oxygen Delivery Method Room Air Nasal Cannula Nasal Cannula Oxygen Flow Rate (L/min) 2 2 05/17/23 15:44 Temperature Temperature Source Pulse Rate 63 Respiratory Rate 20 H Blood Pressure 156/82 H Blood Pressure Mean 106 Pulse Ox 96 Oxygen Delivery Method Oxygen Flow Rate (L/min) Weight Weight: 59.9 kg Body Mass Index (BMI) 38.7 Physical Exam Narrative General: Alert, oriented, no apparent distress HEENT: Atraumatic, slight drooping of right eyelid which is not new and happened after patient got shingles on the right side of her face Eyes: Anicteric, normal conjunctiva, extraocular movements intact, pupils equal Neck: Supple Respiratory: Clear to auscultation bilaterally, normal respiratory effort Cardiovascular: Regular rate and rhythm GI: Soft, nontender, nondistended Extremities: No edema Musculoskeletal: Strength 5 out of 5 in right upper extremity, 5 out of 5 left upper extremity, 5 out of 5 right lower extremity, 5 - out of 5 left lower extremity Neuro: No overt focal neurological deficits, cranial nerves II through XII intact, [id number] without very slight dysmetria left greater than right Skin: No rashes appreciated Psych: Cooperative Results Lab / Micro Data 05/17/23 14:55 05/17/23 14:55 Labs: Laboratory Results - last 24 hr 05/17/23 14:55: WBC 8.5, RBC 4.31, Hgb 12.2, Hct 38.7, MCV 89.8, MCH 28.3, MCHC 31.5 L, RDW Std Deviation 48.1 H, RDW Coeff of [place] 14.6, Plt Count 267, MPV 9.9, Immature Gran % (Auto) 0.500, Neut % (Auto) 83.5 H, Lymph % (Auto) 10.6 L, [place] % (Auto) 4.9, Eos % (Auto) 0.4, Baso % (Auto) 0.1, Absolute Neuts (auto) 7.1, Absolute Lymphs (auto) 0.90, Nucleated RBC % 0, PT 12.8, INR 1.0, APTT 24.8 Imaging Radiology Impression Brain CT 05/17/23 14:53 IMPRESSION: Chronic involutional changes of the brain. Findings suggestive of old ischemic change in the anterior right frontal lobe. N.B. : The above Results were Read Back by Nawaf Morelos MD to Dr Odilia DO, and understanding confirmed on 05/17/2023 15:09:16 (ET). Electronically Signed: Nawaf Morelos MD at 15:10 EST , Head/Neck CTA 05/17/23 14:53 IMPRESSION: Minimal calcific plaque at the origin of the right internal carotid artery. N.B. : The above Results were Read Back by Nawaf Morelos MD to Gabe Zhong and understanding confirmed on 05/17/2023 15:12:39 (ET). Electronically Signed: Nawaf Morelos MD at 15:14 EST , ADDENDUM: 05/17/23 1521 IMPRESSION: Minimal calcific plaque at the origin of the right internal carotid artery. N.B. : The above Results were Read Back by Nawaf Morelos MD to Gabemayra Zhong and understanding confirmed on 05/17/2023 15:12:39 (ET). Electronically Signed: Nawaf Morelos MD at 15:14 EST , Assessment & Plan Assessment/Plan (1) Stroke: (2) Hypothyroidism: (3) GERD (gastroesophageal reflux disease): (4) Essential hypertension: PLAN: Plan #Neurological deficits -Left sided upper and lower weakness, rapidly improving -Admit to tele -Neuro saw in ED, will c/s neuro for stroke f/u tomorrow -NSR in ED -CT head w/ chronic changes and findings suggestive of old ischemic change in anterior right frontal lobe -CTA head and neck minimal calcific plaque at origin of right internal carotid artery -MRI ordered -NIH q4hr -asa, statin -Echo ordered to assess for any gross abnormalities, had an echo 09/2021 with no Doppler evidence of ASD so does not need bubble study -PT/OT/Speech eval -Hold BP medications to allow for permissive hypertension for 24 hours unless SBP greater than 220 or DBP greater than 120 or until stroke is ruled out #S/p kyphoplasty -W/ Dr Chavez afternoon of 05/17 -D/t vertebral fx 4 months ago -Supportive care -PT/OT #GERD -Continue PPI #Hypothyroidism -Continue Synthroid # Depression -Continue patient's home medications #hypertension -Hold home meds as above #DVT ppx: SCDs Chioma Victoria MD Time spent in the patient's overall evaluation,decision-making process, review of diagnostic data, adjustment of management, discussion with other providers, nursing nursing and ancillary staff involved in patient's care documentation, 56 Minutes Charges/Coding Visit Charges Inpatient E&M: 61013 Init Hosp L2
--- NOTE | 2023-05-17 15:59 | CHAPLAIN ---
Type of Pastoral Visit ___ Initial Visit ___ Follow-up Visit ___ On-call Visit ___ General Patient Visit ___ Spiritual Assessment ___ Family Conference ___ Bereavement _x__ Rapid Response ___ Code Blue ___ Other (describe below) Pastoral Care Referral From ___ Patient ___ Family ___ Nurse ___ Physician ___ Automatic Presser ___ Per Diem Physical Therapist _x__ Other (describe below) Sacrament/Intervention ___ Active listening ___ Anointing ___ Judaism ___ Bereavement ___ Communion ___ Kindra exploration ___ ___ Life review ___ Prayer ___ Reconciliation ___ Sacrament of Sick _x__ Supportive presence ___ Wedding ___ Other (describe below) Pastoral Comments came to ED for the rapid response called for this patient who came from the surgery center; when family members arrived they were escorted to pt room by this hoop maker helper machine and offered support and any practical needs; pt is being attended by medical team; no immediate needs are evident of spoken
--- NOTE | 2023-05-17 16:07 | ECHOL_ITS ---
Version 2 Reason For Study: TIA/CVA Procedure This was a 2D Doppler, Color Flow transthoracic echocardiogram. Exam performed portable in patient room. Left Ventricle Normal size and thickness. The left ventricular ejection fraction is 65 %. Diastolic function is indeterminate. Right Ventricle Normal right ventricle. Atria The left atrium is moderately enlarged. Normal right atrium. Aneurysmal interatrial septum. Echocardiogram from 2007 reported positive bubble study for possible tiny PFO. Mitral Valve Mild prolapse of the posterior mitral valve leaflet. Mild to moderate mitral valve regurgitation. Tricuspid Valve Trivial tricuspid valve insufficiency. Normal pulmonary artery pressure. Aortic Valve Trisinus/trileaflet aortic valve. Pulmonic Valve The pulmonic valve is not well visualized. Mild (1+) pulmonic valve insufficiency. Great Vessels Normal sized aortic root. Pericardium/Pleural No pericardial effusion. MMode/2D Measurements & Calculations LVIDd: 4.3 cm IVSd: 0.89 cm Ao root diam: 2.8 cm LVIDs: 2.4 cm LVPWd: 0.86 cm RVDd: 3.5 cm FS: 43.3 % LAV(MOD-bp): 57.6 ml LVAd ap4: 21.4 cm2 LVAd ap2: 21.1 cm2 LAV(MOD-bp) Indexed: 37.2 ml/m2 LVLd ap4: 6.7 cm LVLd ap2: 6.4 cm LAV(MOD-sp2): 69.0 ml EDV(MOD-sp4): 54.9 ml EDV(MOD-sp2): 56.0 ml LAV(MOD-sp4): 48.5 ml EDV(sp4-el): 57.8 ml EDV(sp2-el): 58.7 ml LVAs ap4: 11.9 cm2 LVAs ap2: 11.0 cm2 LVLs ap4: 5.2 cm LVLs ap2: 5.1 cm ESV(MOD-sp4): 23.0 ml ESV(MOD-sp2): 20.7 ml ESV(sp4-el): 23.1 ml ESV(sp2-el): 20.2 ml EF(MOD-sp4): 58.1 % EF(MOD-sp2): 63.0 % EF(sp4-el): 60.1 % SV(MOD-sp4): 31.9 ml SV(MOD-sp2): 35.3 ml SV(sp4-el): 34.7 ml LA dimension(2D): 4.4 cm LA A4 area: 18.2 cm2 RA A4 area: 12.5 cm2 TAPSE: 2.1 cm Time Measurements MV dec time: 0.23 sec Doppler Measurements & Calculations MV E max francesco: 60.7 cm/sec Lat Peak E' Francesco: 7.1 cm/sec Med Peak E' Francesco: 6.5 cm/sec MV A max francesco: 91.4 cm/sec E/E' lat: 8.6 E/E' med: 9.3 MV E/A: 0.66 MV dec slope: 259.5 cm/sec2 PA V2 max: 110.0 cm/sec PI end-d francesco: 95.3 cm/sec PA max PG (full): 2.1 mmHg TR max francesco: 212.3 cm/sec TR max P.0 mmHg ECHO/Echo, Limited Study Interpretation Summary The left ventricular ejection fraction is 65 %. Diastolic function is indeterminate. The left atrium is moderately enlarged. Mild prolapse of the posterior mitral valve leaflet. Mild to moderate mitral va lve regurgitation. Mild (1+) pulmonic valve insufficiency. Aneurysmal interatrial septum. Echocardiogram from 2007 reported positive bubbl e study for possible tiny PFO. Ordering Physician: Chioma Victoria Performed By: Tori Blancas RDCS
--- NOTE | 2023-05-17 16:07 | MRI_ITS ---
We are attempting to reach an attending provider to discuss findings. An addendum with communication details will be sent when the communication is complete. STUDY: MRI BRAIN WITHOUT CONTRAST REASON FOR EXAM: Female, 83 years old. concern for cva TECHNIQUE: Standardized multiplanar fat and water weighted pulse sequences were obtained. COMPARISON: Noncontrast CT brain and CTA brain from today. FINDINGS: There is mild cerebral atrophy with widening of the extra-axial spaces and ventricular dilatation. There are multiple white matter hyperintensities, distributed throughout the deep white matter tracts of the cerebral hemispheres, consistent with moderate chronic white matter ischemic changes. Subtle gyriform restricted diffusion right frontal superior gyrus. There are prominent perivascular spaces (PVS) involving the basal ganglia. Normal thalami. There is no extra-axial fluid accumulation. Normal flow voids within the major intracranial circulation suggesting patency by spin echo criteria. Normal sella turcica, pituitary gland, infundibular stalk, optic chiasm and hypothalamus. Normal tectal plate and pineal gland. Nonspecific ill-defined T2 lengthening throughout the yeyo probably ischemic. Normal cerebellum. Normal basal cisterns. Normal bilateral temporal bones. Normal bilateral internal auditory canals. No demonstrated orbital abnormality, within the constraints of a routine brain study. Normal visualized paranasal sinuses. Normal calvarium and skull base. Normal visualized soft tissue structures. Normal visualized upper cervical spine. MRI/Brain without Contrast IMPRESSION: Probable subacute infarct right frontal gyrus. Electronically Signed: Steve Gamino MD at 19:39 EST ,
[2023-05-17 16:17] LABS: Anion Gap 5 (5-15); BUN 16 mg/dL (7-18); BUN/Creat Ratio 20.2 RATIO (10-20); Calcium,Total 8.6 mg/dL (8.5-10.1); Chloride 109 mmol/L (98-107); Creatinine, Serum 0.79 mg/dL (0.55-1.02); EST Glomerular Filtration Rate 74 mL/min (>60); Est Glom Filt Rate - Afr Amer 90 mL/min (>60); Estimated Creatinine Clearance 44.63 ml/min; Glucose 122 mg/dL (74-106); Potassium 4.3 mmol/L (3.5-5.1); Sodium Level 141 mmol/L (136-145); Troponin-I HS 143 pg/mL (3.0-54.0)
[2023-05-17] MEDS: Aspirin 81 MG TAB.CHEW 324 MG PO (16:20)
--- NOTE | 2023-05-17 16:25 | PCM.HOSP.N ---
Hospitalist Note Patient had troponin drawn in ED which has now resulted at 143, patient had no chest pain or shortness of breath, she is in normal sinus rhythm and is not tachycardic and blood pressure without significant hypotension though unclear if there was any hypotension during her procedure. Given lack of symptoms do not think patient having acute NSTEMI and more likely this is secondary to some kind of demand ischemia. Will cycle troponins, patient is being admitted on telemetry and also already be getting an echocardiogram as well that will assess for any wall motion abnormalities.
--- NOTE | 2023-05-17 17:15 | ED.RN ---
spoke to tobias on [facility], mri is ready for the pt, lovely said that VICTOR M Martinez did not need to give bedside NIH d/t her last two NIH were zero's and one's prior to that.
[2023-05-17 17:19] LABS: Bacteria 0 SEEN /hpf (None Seen); Mucous, Urine 0 SEEN /hpf (<or=2+); Red Blood Cells-Urine 0 SEEN /hpf (0-5); Squamous Epithelial Cells - UA 0 SEEN /hpf (5-10); White Blood Cells 0 SEEN /hpf (0-5)
[2023-05-17 17:24] LABS: Color, Urine Yellow (Yellow); Glucose, Dipstick Normal (Normal); Ketone-Dipstick 5 mg/dl (Negative); Leukocyte Esterase-Dipstick Negative /ul (Negative); Nitrite-Dipstick Negative (Negative); Occult Blood-Urine Negative /ul (Negative); Protein-Dipstick Negative (Negative); Urine Bilirubin Dipstick Negative (Negative); Urine Clarity Clear (Clear); Urine Urobilinogen Normal (Normal)
--- NOTE | 2023-05-17 19:53 | PCM.HOSP.N ---
Hospitalist Note [facility] radiologist called me to inform that patient had a small about 3 cm curvilinear, gyriform probably 1 x 3 to 4 cm although not described in the official report, subacute right frontal ischemic stroke. [facility] radiologist already consulted.Head and neck CT does not show any hemodynamically significant stenosis or occlusion.
--- NOTE | 2023-05-17 20:46 | CT_ITS ---
We are attempting to reach an attending provider to discuss findings. An addendum with communication details will be sent when the communication is complete. STUDY: CT BRAIN WITHOUT CONTRAST REASON FOR EXAM: Female, 83 years old. stroke alert RADIATION DOSAGE (If Supplied By Facility): CTDIvol = ( 44.99 ) mGy, DLP = ( 829.85 ) mGycm TECHNIQUE: Transaxial CT imaging of the brain was performed without administration of intravenous contrast material. Individualized dose optimization techniques were used for this CT. COMPARISON: MR brain from today. CT and CTA brain from today. FINDINGS: Normal soft tissue structures. Normal calvarium. Hypodensity right frontal cortex and subcortical white matter. There are areas of decreased attenuation within the white matter tracts of the supratentorial brain, consistent with microvascular disease changes. Normal basal ganglia and thalami. Normal brainstem. Normal cerebellum. Intracranial atherosclerosis. There is no intracranial hemorrhage. There are no findings of an acute ischemic infarction. Normal visualized paranasal sinuses. CT/STROKE Brain/Head without Cont IMPRESSION: Subacute infarct right frontal lobe unchanged. Electronically Signed: Steve Gamino MD at 21:14 EST ,
--- NOTE | 2023-05-17 20:59 | NURSING ---
This RN spoke with Dr. Howard with [facility] teleneurology regarding pt stroke alert and new onset symptoms. Dr. Howard states that with minimal change and low NIH, besides pt out of the window for TNK, there is nothing we are going to do acutely and physician will not be beaming in. Continue to medically manage, per MD, with permissive HTN measures in place. Leobardo DOW
[2023-05-17 21:27] LABS: Troponin-I HS 137 pg/mL (3.0-54.0)
[2023-05-17] MEDS: Clopidogrel Bisulfate 75 MG Tablet PO (21:28)
[2023-05-17] MEDS: Atorvastatin Calcium 40 MG Tablet PO (21:28)
[2023-05-17 23:06] LABS: Bedside Glucose 192 mg/dL (74-106)
[2023-05-18] VITALS (7 sets, daily range): BP systolic 140–166; BP diastolic 72–97; PULSE 61–71; RESP 18; TEMP 36.8–37.2; O2SAT 94–97; BMI 22.3
[2023-05-18 00:40] LABS: Troponin-I HS 82 pg/mL (3.0-54.0)
[2023-05-18 04:40] LABS: Absolute Lymphocyte Count 1.02 X10^3/uL (0.83-4.51); Absolute Neutrophil Count 5.2 X10^3/uL (2.0-7.7); Basophil# 0.01 X10^3/uL; Basophil% 0.1 % (0-1); Eosinophil# 0.18 X10^3/uL; Eosinophils% 2.5 % (0-5); Hematocrit 36.3 % (37-47); Hemoglobin 11.3 g/dL (12.0-15.0); Lymphocyte # 1.02 X10^3/ul (0.83-4.51); Lymphocyte % 14.3 % (19-41); Mean Corp Hgb Conc 31.1 g/dL (32-36); Mean Corpuscular Hgb 27.8 pg (27.0-32.0); Mean Corpuscular Volume 89.4 fL (81-99); Mean Platelet Vol. 10.3 fl (6.2-12.0); Monocyte# 0.65 X10^3/uL; Monocyte% 9.1 % (0-10); NRBC Flagged by Analyzer 0 % (0-5); Neutrophil # 5.24 X10^3/uL (2.7-7.7); Neutrophil % 73.4 % (47-70); Platelet Count 243 K/mm3 (150-450); RBC Distribution Width CV 14.6 % (11.6-14.6); RBC Distribution Width SD 47.5 fl (35.1-43.9); Red Blood Count 4.06 M/mm3 (4.2-5.4); White Blood Count 7.1 K/mm3 (4.4-11.0)
[2023-05-18 05:06] LABS: Anion Gap 6 (5-15); BUN 16 mg/dL (7-18); BUN/Creat Ratio 24.2 RATIO (10-20); Calcium,Total 8.4 mg/dL (8.5-10.1); Chloride 109 mmol/L (98-107); Cholesterol 186 mg/dL (200); Creatinine, Serum 0.66 mg/dL (0.55-1.02); EST Glomerular Filtration Rate 91 mL/min (>60); Est Glom Filt Rate - Afr Amer 110 mL/min (>60); Estimated Creatinine Clearance 39.62 ml/min; Glucose 90 mg/dL (74-106); High Density Lipoprotein 92 mg/dL; Potassium 3.5 mmol/L (3.5-5.1); Sodium Level 144 mmol/L (136-145); Thyroid Stim Hormone (TSH) 3.29 uIU/mL (0.358-3.74); Triglycerides 74 mg/dL; Very Low Density Lipoprotein 15 mg/dL (5-40)
[2023-05-18] MEDS: Levothyroxine 150 MCG Tablet PO (06:10)
--- NOTE | 2023-05-18 07:57 | PN.HOSP_ITS ---
Reason for Visit Reason for Visit: Diagnoses Hypothyroidism, unspecified (05/17/23) Essential (primary) hypertension (05/17/23) Cerebral infarction, unspecified (05/17/23) Gastro-esophageal reflux disease without esophagitis (05/17/23) Subjective Subjective Patient overnight with stroke alert secondary to concerns for worsening symptoms however repeat CT head with no changes and patient did return to her baseline. Some concern for anxiety associated as she notes that her father passed secondary to heart attack and eventually a stroke. Discussed current plan of care which included continued aspirin, Plavix for 21 days then transition back to single agent following, continued statin therapy, readdition of hypertensive regimen once appropriate and continued therapies with likely rehab versus SNF placement. Patient denies fevers, chills, nausea, emesis, abdominal pain, chest pain or dyspnea. Objective Data Objective Data Vital Signs: Vital Signs Temp Pulse Resp BP Pulse Ox O2 Del Method O2 Flow Rate 98.7 F 64 18 166/72 H 96 Nasal Cannula 2 05/18/23 07:39 05/18/23 07:39 05/18/23 07:39 05/18/23 07:39 05/18/23 07:39 05/18/23 07:39 05/18/23 07:39 Oxygen Flow Rate (L/min) 2 Oxygen Delivery Method Nasal Cannula Weight: 110 lb 10.753 oz Body Mass Index (BMI) 22.3 Intake & Output: Intake and Output for Last 24 Hours 05/16/23 05/17/23 05/18/23 23:59 23:59 23:59 Intake Total 0 / 200 400 / 400 Balance 0 / 200 400 / 400 Lab / Micro Data 05/18/23 04:02 05/18/23 04:02 Labs: Laboratory Results - last 24 hr 05/17/23 14:55: WBC 8.5, RBC 4.31, Hgb 12.2, Hct 38.7, MCV 89.8, MCH 28.3, MCHC 31.5 L, RDW Std Deviation 48.1 H, RDW Coeff of Vesna 14.6, Plt Count 267, MPV 9.9, Immature Gran % (Auto) 0.500, Neut % (Auto) 83.5 H, Lymph % (Auto) 10.6 L, [place] % (Auto) 4.9, Eos % (Auto) 0.4, Baso % (Auto) 0.1, Absolute Neuts (auto) 7.1, Absolute Lymphs (auto) 0.90, Nucleated RBC % 0, PT 12.8, INR 1.0, APTT 24.8, Sodium 141, Potassium 4.3, Chloride 109 H, Carbon Dioxide 27.0, Anion Gap 5, BUN 16, Creatinine 0.79, Estim Creat Clear Calc 44.63, Est GFR (MDRD) Af Amer 90, Est GFR (MDRD) Non-Af 74, BUN/Creatinine Ratio 20.2 H, Glucose 122 H, Calcium 8.6, Troponin I High Sens 143 H* 05/17/23 17:05: Urine Color Yellow, Urine Clarity Clear, Urine pH 7.0, Ur Specific [place] 1.010, Urine Protein Negative, Urine Glucose (UA) Normal, Urine Ketones 5 H, Urine Occult Blood Negative, Urine Nitrite Negative, Urine Bilirubi n Negative, Urine Urobilinogen Normal, Ur Leukocyte Esterase Negative, Urine RBC 0 SEEN, Urine WBC 0 SEEN, Ur Squamous Epith Cells 0 SEEN, Urine Bacteria 0 SEEN, Urine Mucus 0 SEEN 05/17/23 20:28: POC Glucose 192 H 05/17/23 20:32: Troponin I High Sens 137 H* 05/18/23 00:04: Troponin I High Sens 82 H 05/18/23 04:02: WBC 7.1, RBC 4.06 L, Hgb 11.3 L, Hct 36.3 L, MCV 89.4, MCH 27.8, MCHC 31.1 L, RDW Std Deviation 47.5 H, RDW Coeff of Vesna 14.6, Plt Count 243, MPV 10.3, Immature Gran % (Auto) 0.600, Neut % (Auto) 73.4 H, Lymph % (Auto) 14.3 L, [place] % (Auto) 9.1, Eos % (Auto) 2.5, Baso % (Auto) 0.1, Absolute Neuts (auto) 5.2, Absolute Lymphs (auto) 1.02, Nucleated RBC % 0, Sodium 144, Potassium 3.5, Chloride 109 H, Carbon Dioxide 29.0, Anion Gap 6, BUN 16, Creatinine 0.66, Estim Creat Clear Calc 39.62, Est GFR (MDRD) Af Amer 110, Est GFR (MDRD) Non-Af 91, BUN/Creatinine Ratio 24.2 H, Glucose 90, Calcium 8.4 L, Triglycerides 74, Cholesterol 186, LDL Cholesterol 79, VLDL Cholesterol 15, HDL Cholesterol 92, TSH 3.29 Radiography Diagnostic Testing: Radiology Impression Brain CT 05/17/23 14:53 IMPRESSION: Chronic involutional changes of the brain. Findings suggestive of old ischemic change in the anterior right frontal lobe. N.B. : The above Results were Read Back by Nawaf Morelos MD to Dr Odilia DO, and understanding confirmed on 05/17/2023 15:09:16 (ET). Electronically Signed: Nawaf Morelos MD at 15:10 EST , Head/Neck CTA 05/17/23 14:53 IMPRESSION: Minimal calcific plaque at the origin of the right internal carotid artery. N.B. : The above Results were Read Back by Nawaf Morelos MD to Gabe Zhong and understanding confirmed on 05/17/2023 15:12:39 (ET). Electronically Signed: Nawaf Morelos MD at 15:14 EST , ADDENDUM: 05/17/23 1521 IMPRESSION: Minimal calcific plaque at the origin of the right internal carotid artery. N.B. : The above Results were Read Back by Nawaf Morelos MD to Gabe Zhong and understanding confirmed on 05/17/2023 15:12:39 (ET). Electronically Signed: Nawaf Morelos MD at 15:14 EST , Chest X-Ray 05/17/23 15:55 IMPRESSION: No acute disease. Multiple old fractures. Electronically Signed: Steev Gamino MD at 16:41 EST , Brain MRI 05/17/23 16:07 IMPRESSION: Probable subacute infarct right frontal gyrus. Electronically Signed: Steve Gamino MD at 19:39 EST , ADDENDUM: 05/17/231999 IMPRESSION: Probable subacute infarct right frontal gyrus. N.B. : The above Results were Read Back by Steve Gamino MD to Murali Grimaldo MD, and understanding confirmed on 05/17/2023 19:53:09 (ET). Electronically Signed: Steve Gamino MD at 19:39 EST , Brain CT 05/17/23 20:46 IMPRESSION: Subacute infarct right frontal lobe unchanged. Electronically Signed: Steve Gamino MD at 21:14 EST , ADDENDUM: 05/17/232121 IMPRESSION: Subacute infarct right frontal lobe unchanged. N.B. : The above Results were Read Back by Steve Gamino MD to Murali Grimaldo MD, and understanding confirmed on 05/17/2023 21:15:06 (ET). Electronically Signed: Steve Gamino MD at 21:14 EST , Physical Exam Narrative Physical Examination: General: Awake, alert, oriented x 3 and cooperative, seated upright in PCU bed, anxious but calms with discussions. Skin: Normal color, normal turgor, no icterus, no cyanosis. HEENT: AT/NC, EOMI, PERRLA, MMM. Lungs: CTA bilaterally, moderate effort, mild decrease BL bases, no rales, hussein chi or wheezing. Heart: Regular rate and rhythm; no gallop, rub audible. Abdomen: Soft, thin habitus, NTTP, ND, normal BS. Extremities: No cyanosis, clubbing, or edema. Neurological: Patient awake, alert, oriented as noted, cognitive function appears intact; pupils equally reactive to light and accommodation, cranial nerves grossly normal, moving all 4 extremities, still some very mild drift with left upper and left lower extremity and some mild difficulties with finger-nose and [id number], sensation appropriate, equivocal Babinski. Psychiatric: Affect appears anxious with discussions, notes her father passed from a stroke but eventually calm's, no acute evidence of depressive feelings. Assessment & Plan Assessment/Plan (1) Stroke: PLAN: Plan The patient is an 83 y/o F w/ PMHx: GERD, Hypothyroidism, HTN, HLD, Valvular Heart Disease who presents to the [facility] ED on 05/17/23 with history of kyphoplasty performed on day of presentation and after the procedure was having difficulty using her left side including her left upper extremity and left lower extremity with only MAC anesthesia used for approximately 15 minutes with last known well at noon just prior to procedure prompting ED transition with initial NIH stroke scale 3. 1. Left-sided hemiplegia, paresthesias secondary to acute infarct in the right frontal gyrus: Workup in the ED included CBC with WBC 8.5, Hgb 12.2, MCV 89.8, platelet 267 without marked shift, BMP with chloride 109 otherwise not marked appearing, troponin 143, urinalysis with no evidence of UTI, CT brain with chronic involutional changes, findings suggestive of an old ischemic change in the anterior right frontal lobe, CTA head and neck with minimal calcific plaque at the origin of the right ICA, chest x-ray with no acute cardiopulmonary findings with evidence of multiple old compression fractures with new midthoracic vertebroplasty evidence as well as old rib fractures on the right, old humeral neck fracture on the right. Admitted to PCU, MRI brain with probable subacute infarct in the right frontal gyrus. Follow-up CT brain secondary to stroke alert with subacute infarct in the right frontal lobe which was unchanged. ECHO with LVEF 65%, diastolic function indeterminate, moderately enlarged LA, mild to moderate MV regurgitation, mild PVI, aneurysmal intra- atrial septum, echocardiogram 2007 reported positive bubble study for possible tiny PFO. PT/OT/Speech/Nutrition evaluation per protocol. Maintained on permissive HTN, maintain on dual antiplt therapy w/ asa/plavix with plan for 21 days of dual therapy then aspirin 81 mg following per neurology recommendation, statin w/ AM FLP with TG 74, total cholesterol 186, LDL 79, VLDL 15, HDL 92, fall precautions. TSH 3.29, magnesium 2.5, HgbA1c 5.8% consistent with prediabetes with changes as noted. Maintain on fall and aspiration precautions. Neurology consulted with his noted recommendations including continue dual antiplatelet therapy for 21 days then transition to aspirin 81 mg daily thereafter, continue with statin, restart hypertensive regimen once appropriate, event monitor outpatient to assure no paroxysmal atrial fibrillation. ST evaluation with no concerns, PT and OT assessments with recommendation for skilled facility possibly rehab prior to returning home thus awaiting SNF decision and will need prior authorization also. Patient of note is also appropriate for inpatient status therefore status transitioned. 2. Indeterminate cardiac enzyme, unclear etiology, possibly stress response/demand with #1: EKG in ED with sinus rhythm with right bundle branch block, LAFB and nonspecific ST changes unchanged from previous, CXR w/ no acute cardiopulmonary findings with evidence of several old fractures, initial trop 143, trended with repeat 137--> 82. Maintain on telemetry monitoring, echocardiogram requested, maintained on aspirin and Plavix as well as statin th erapy as noted. Magnesium 2.5. 3. Chronic back pain status post recent kyphoplasty: Patient with recent kyphoplasty done on 05/17/2023 with unfortunately left-sided hemiplegia and paresthesias following, as noted patient is on dual antiplatelet therapy therefore will need to be very cautious given recent procedure, monitor for bleeding, PT/OT/CM consulted for discharge planning as noted. Prediabetes: Hemoglobin A1c 5.8%, will transition to ADA diet to be cautious with Accu-Cheks with insulin sliding scale, nutrition consulted and following. 4. Hypertension: Will maintain on permissive hypertension with agents per stroke protocol with eventual transition back to home regimen as noted above. 5. Hyperlipidemia: Upon presentation added statin regimen. AM FLP as noted. 6. Normocytic anemia, suspect chronic component: Admission hemoglobin 12.2, MCV 89.8, baseline appears primarily 12 but these are only 2 points otherwise, 05/18/2023 hemoglobin repeat 11.3, will continue to trend very closely given usage of dual antiplatelet therapy and recent kyphoplasty as noted above. 7. Anxiety and depression: We will continue patient home sertraline regimen. 8. Hypothyroidism: We will continue patient on levothyroxine regimen, TSH 3.29. 9. GERD: We will continue patient on PPI. 10. DVT Prophylaxis: Lovenox. 11. CODE status: DNR-CCA, no intubtaion. Charges/Coding Visit Charges Inpatient E&M: 29630 Subs Hosp L2
[2023-05-18 08:22] LABS: Magnesium 2.5 mg/dL (1.6-2.6)
[2023-05-18 09:42] LABS: Hemoglobin A1c 5.8 % (3.8-5.6)
[2023-05-18] MEDS: Sertraline 100 MG Tablet PO (10:13)
[2023-05-18] MEDS: Pantoprazole Sodium 40 MG Tablet PO (10:13)
[2023-05-18] MEDS: Aspirin 81 MG TAB.CHEW PO (10:13)
--- NOTE | 2023-05-18 10:22 | PN.NEURO_ITS ---
Objective Data Objective Data Vital Signs: Vital Signs Temp Pulse Resp BP Pulse Ox O2 Del Method O2 Flow Rate 98.7 F 64 18 166/72 H 96 Nasal Cannula 2 05/18/23 07:39 05/18/23 07:39 05/18/23 07:39 05/18/23 07:39 05/18/23 07:39 05/18/23 07:39 05/18/23 07:39 Oxygen Flow Rate (L/min) 2 Oxygen Delivery Method Nasal Cannula Weight: 50.2 kg Body Mass Index (BMI) 22.3 Intake & Output: Intake and Output for Last 24 Hours 05/16/23 05/17/23 05/18/23 23:59 23:59 23:59 Intake Total 0 / 200 400 / 400 Balance 0 / 200 400 / 400 Lab / Micro Data 05/18/23 04:02 05/18/23 04:02 Labs: Laboratory Results - last 24 hr 05/17/23 14:55: WBC 8.5, RBC 4.31, Hgb 12.2, Hct 38.7, MCV 89.8, MCH 28.3, MCHC 31.5 L, RDW Std Deviation 48.1 H, RDW Coeff of Vesna 14.6, Plt Count 267, MPV 9.9, Immature Gran % (Auto) 0.500, Neut % (Auto) 83.5 H, Lymph % (Auto) 10.6 L, [place] % (Auto) 4.9, Eos % (Auto) 0.4, Baso % (Auto) 0.1, Absolute Neuts (auto) 7.1, Absolute Lymphs (auto) 0.90, Nucleated RBC % 0, PT 12.8, INR 1.0, APTT 24.8, Sodium 141, Potassium 4.3, Chloride 109 H, Carbon Dioxide 27.0, Anion Gap 5, BUN 16, Creatinine 0.79, Estim Creat Clear Calc 44.63, Est GFR (MDRD) Af Amer 90, Est GFR (MDRD) Non-Af 74, BUN/Creatinine Ratio 20.2 H, Glucose 122 H, Calcium 8.6, Troponin I High Sens 143 H* 05/17/23 17:05: Urine Color Yellow, Urine Clarity Clear, Urine pH 7.0, Ur Specific [place] 1.010, Urine Protein Negative, Urine Glucose (UA) Normal, Urine Ketones 5 H, Urine Occult Blood Negative, Urine Nitrite Negative, Urine Bilirubin Negative, Urine Urobilinogen Normal, Ur Leukocyte Esterase Negative, Urine RBC 0 SEEN, Urine WBC 0 SEEN, Ur Squamous Epith Cells 0 SEEN, Urine Bacteria 0 SEEN, Urine Mucus 0 SEEN 05/17/23 20:28: POC Glucose 192 H 05/17/23 20:32: Troponin I High Sens 137 H* 05/18/23 00:04: Magnesium 2.5, Troponin I High Sens 82 H 05/18/23 04:02: WBC 7.1, RBC 4.06 L, Hgb 11.3 L, Hct 36.3 L, MCV 89.4, MCH 27.8, MCHC 31.1 L, RDW Std Deviation 47.5 H, RDW Coeff of Vesna 14.6, Plt Count 243, MPV 10.3, Immature Gran % (Auto) 0.600, Neut % (Auto) 73.4 H, Lymph % (Auto) 14.3 L, [place] % (Auto) 9.1, Eos % (Auto) 2.5, Baso % (Auto) 0.1, Absolute Neuts (auto) 5.2, Absolute Lymphs (auto) 1.02, Nucleated RBC % 0, Sodium 144, Potassium 3.5, Chloride 109 H, Carbon Dioxide 29.0, Anion Gap 6, BUN 16, Creatinine 0.66, Estim Creat Clear Calc 39.62, Est GFR (MDRD) Af Amer 110, Est GFR (MDRD) Non-Af 91, BUN/Creatinine Ratio 24.2 H, Glucose 90, Hemoglobin A1c 5.8 H, Calcium 8.4 L, Tr iglycerides 74, Cholesterol 186, LDL Cholesterol 79, VLDL Cholesterol 15, HDL Cholesterol 92, TSH 3.29 Radiography Diagnostic Testing: Radiology Impression Brain CT 05/17/23 14:53 IMPRESSION: Chronic involutional changes of the brain. Findings suggestive of old ischemic change in the anterior right frontal lobe. N.B. : The above Results were Read Back by Nawaf Morelos MD to Dr Odilia DO, and understanding confirmed on 05/17/2023 15:09:16 (ET). Electronically Signed: Nawaf Morelos MD at 15:10 EST , Head/Neck CTA 05/17/23 14:53 IMPRESSION: Minimal calcific plaque at the origin of the right internal carotid artery. N.B. : The above Results were Read Back by Nawaf Morelos MD to Gabe Zhong and understanding confirmed on 05/17/2023 15:12:39 (ET). Electronically Signed: Nawaf Morelos MD at 15:14 EST , ADDENDUM: 05/17/23 1521 IMPRESSION: Minimal calcific plaque at the origin of the right internal carotid artery. N.B. : The above Results were Read Back by Nawaf Morelos MD to Gabe Zhong and understanding confirmed on 05/17/2023 15:12:39 (ET). Electronically Signed: Nawaf Morelos MD at 15:14 EST , Chest X-Ray 05/17/23 15:55 IMPRESSION: No acute disease. Multiple old fractures. Electronically Signed: Steve Gamino MD at 16:41 EST , Brain MRI 05/17/23 16:07 IMPRESSION: Probable subacute infarct right frontal gyrus. Electronically Signed: Steve Gamino MD at 19:39 EST , ADDENDUM: 05/17/231999 IMPRESSION: Probable subacute infarct right frontal gyrus. N.B. : The above Results were Read Back by Steve Gamino MD to Murali Grimaldo MD, and understanding confirmed on 05/17/2023 19:53:09 (ET). Electronically Signed: Steve Gamino MD at 19:39 EST Reading Location ID and State: [facility] / [place] Tel , Service support , Brain CT 05/17/23 20:46 IMPRESSION: Subacute infarct right frontal lobe unchanged. Electronically Signed: Steve Gamino MD at 21:14 EST , ADDENDUM: 05/17/232121 IMPRESSION: Subacute infarct right frontal lobe unchanged. N.B. : The above Results were Read Back by Steve Gamino MD to Murali Grimaldo MD, and understanding confirmed on 05/17/2023 21:15:06 (ET). Electronically Signed: Steve Gamino MD at 21:14 EST Reading Location ID and State: [facility] / [place] Tel , Service support , Physical Exam Neuro Neuro Narrative: Neurological examination: General:?The patient appears nutritionally appropriate, well-groomed, and appears comfortable in no acute distress.?Mental Status:??The patient?s mental status was normal including orientation.? Language was intact.??Cranial nerves:? Visual charles full,, and extra-ocular motion was intact. Face motion symmetric.? Tongue was midline with normal movement.? There was no dysarthria.?Motor:?Normal strength in right arm/leg and left leg. Mild left arm weakness, left pronator drift.?Sensation:?Decreased light touch in left arm..??Coordination:? Bilateral finger to nose was normal.? There was no dysmetria.?Gait:? patient was observed ambulating with PT with gait belt Subject: Neurology Subjective Patient feels better this morning but not back to normal. She still has weakness and numbness in her left arm. She walked with PT today (they are recommend SNF/Rehab). TTE done this AM. Assessment and Plan: Stroke Assessment/Plan NURIA GAMEZ is a 83 yo RH F with a history of HTN, Hypothyroidism, HL, GERD, and vertebral fracture s/p throacici kyphoplasty on 05/17/2023 (LKN 12p) under local MAC and post-op was noted to have left facial droop and left face/arm weakness/numbness. In ER telestroke showed NIHSS-1 (ER scored 3). CT brain showed right frontal hypodensity. CTA head/neck negative. She was admitted. MRI brain DWI shows a right frontal cortical MCA infarct. LDL 79. I do note 09/2021 TTE showed moderate LA enlargement- patient denies personal history of Afib and states she has only diagnosis of MV insufficiency. She is on Asa/Plavix, lipitor, and lovenox SQ. Neurological examination shows mild left arm weakness/numbness. NIHSS-2 (LUE-1, sens-1) ASSESSMENT/PLAN: Acute right MCA ischemic stroke post-stroke day #1 Stroke work-up pending TTE. Continue anti-platelet medication (recommend Asa/Plavix x 21 days per [facility] protocol then Asa 81mg only thereafter). Continue vascular risk factor modification. On lipitor 40. DVT prophylaxis with SCDs and lovenox SQ. Recommend Event monitor on discharged to rule out paroxysmal Afib.
--- NOTE | 2023-05-18 11:15 | CASEMGMT ---
VICTOR M LAMBERT Assessment: Face to Face with pt for initial transition planning/care coordination assessment. VICTOR M LAMBERT introduced self and role at [facility], pt voices understanding and consents to assessment. Pt is A&O x4 and answers all questions appropriately at this time. Pt sitting up in chair in no distress with , dtr and son present in room. Pt agreeable to assessment with family present. Care providers, pharmacy, and demographics verified/updated. Admitting Dx: stroke, hypertension PCP:Giovanna Ruggiero Specialists:Kathy, ortho; CARYNG, cardio Preferred Pharmacy: [facility] Insurance: [employer] Prescription Benefit: yes LNOK: Sanjay Navarro, ; Bree Queen, dtr Living Arrangements: Pt lives with in a two story home with 3 steps to enter with a rail. Pt reports she was I in ADL's and denies concerns at home. Transportation: Pt drives self and denies concerns with transportation. Pt states she leaves the home daily to get out of the house. DME:does not use AD, access to FWW and cane HHC/SNF: Denies hx of Pt states the therapist suggested she go to a SNF for further rehab prior to returning home. Pt reports she walked down the hallway with therapist and did 3 steps without a device. Pt states she feels she does need a SNF as well. Pt had kypho yesterday with . VICTOR M LAMBERT provided pt a list of [facility] providers including quality and resource use data and consistent with the patient?s preferred geographic region, medical needs, and insurance network were provided from the [employer] Guide in case she feels she needs this post SNF or in place of. Updated SW on pt request for SNF. Pt states no further concerns/needs. CM to follow. Advised pt to ask CM if any further question/concerns/needs arise, voices understanding. Pt Goal: SNF Plan: SNF
[2023-05-18 16:29] LABS: Bedside Glucose 88 mg/dL (74-106)
--- NOTE | 2023-05-18 16:38 | CASEMGMT ---
Social Work SW notified that patient is interested in a SNF. SW introduced self and role to patient. Pt confirms she would like a SNF. Pt does present as fairly independent but indicates she is in need of a SNF and SW provided her with a SNF list according to her insurance and geographic location. Pt notified insurance requires a precert. Pt reports time needed to review list. Pt agreed to answer PHQ-9 questions and indicated being down, difficulty sleeping and having low energy but otherwise denies concerns. Pt reports of the symptoms are related to her health. Pt reports seeing a counselor years ago and would again if needed. Pt denies the need for counseling and declined further resources. Pt does not have advance directives on file. Pt reports she has a HCPOA and living will. Pt states spouse, Sanjay, is her HCPOA. Pt agreed to provide a copy for her record when able. Lulú Roque COMMERCIAL PROPERTY MANAGER, ADVERTISING DIRECTOR
[2023-05-18] MEDS: Atorvastatin Calcium 40 MG Tablet PO (20:36)
[2023-05-18] MEDS: Clopidogrel Bisulfate 75 MG Tablet PO (20:36)
[2023-05-18 23:07] LABS: Bedside Glucose 108 mg/dL (74-106)
[2023-05-19] VITALS (7 sets, daily range): BP systolic 123–162; BP diastolic 70–108; PULSE 57–62; RESP 14–16; TEMP 36.4–37.1; O2SAT 93–97; BMI 22.3
[2023-05-19] MEDS: Levothyroxine 150 MCG Tablet PO (05:52)
[2023-05-19] MEDS: Enoxaparin 40 MG/0.4 ML Syringe SC (05:52)
[2023-05-19] MEDS: Acetaminophen 325 MG Tablet 650 MG PO (05:57)
[2023-05-19 06:13] LABS: Absolute Lymphocyte Count 1.09 X10^3/uL (0.83-4.51); Absolute Neutrophil Count 3.9 X10^3/uL (2.0-7.7); Basophil# 0.01 X10^3/uL; Basophil% 0.2 % (0-1); Eosinophil# 0.17 X10^3/uL; Eosinophils% 2.9 % (0-5); Hemoglobin 11.8 g/dL (12.0-15.0); Lymphocyte # 1.09 X10^3/ul (0.83-4.51); Lymphocyte % 18.6 % (19-41); Mean Corp Hgb Conc 31.1 g/dL (32-36); Mean Corpuscular Hgb 27.8 pg (27.0-32.0); Mean Corpuscular Volume 89.4 fL (81-99); Mean Platelet Vol. 10.2 fl (6.2-12.0); Monocyte# 0.64 X10^3/uL; Monocyte% 10.9 % (0-10); NRBC Flagged by Analyzer 0 % (0-5); Neutrophil # 3.92 X10^3/uL (2.7-7.7); Neutrophil % 67.1 % (47-70); Platelet Count 260 K/mm3 (150-450); RBC Distribution Width CV 14.5 % (11.6-14.6); RBC Distribution Width SD 46.9 fl (35.1-43.9); Red Blood Count 4.25 M/mm3 (4.2-5.4); White Blood Count 5.9 K/mm3 (4.4-11.0)
--- NOTE | 2023-05-19 06:18 | PN.HOSP_ITS ---
Reason for Visit Reason for Visit: Diagnoses Hypothyroidism, unspecified (05/18/23) Essential (primary) hypertension (05/18/23) Cerebral infarction, unspecified (05/18/23) Gastro-esophageal reflux disease without esophagitis (05/18/23) Subjective Subjective Patient with no acute events overnight, no recurrent worsening NH stroke scale. She does feel as though she is moving her left side with greater ease. She is less anxious than the previous day as she had been very concerned given her history of her father who had passed following a stroke. She does remain amenable to rehab versus skilled with prior authorization currently pending. P atient denies fevers, chills, nausea, emesis, abdominal pain, chest pain or dyspnea. Objective Data Objective Data Vital Signs: Vital Signs Temp Pulse Resp BP Pulse Ox O2 Del Method O2 Flow Rate 97.5 F L 62 16 162/80 H 95 Room Air 2 05/19/23 04:00 05/19/23 04:00 05/19/23 04:00 05/19/23 04:00 05/19/23 04:00 05/19/23 04:00 05/18/23 08:00 Oxygen Flow Rate (L/min) 2 Oxygen Delivery Method Room Air Weight: 110 lb 10.753 oz Body Mass Index (BMI) 22.3 Intake & Output: Intake and Output for Last 24 Hours 05/17/23 05/18/23 05/19/23 23:59 23:59 23:59 Intake Total 0 / 200 400 / 400 Balance 0 / 200 400 / 400 Lab / Micro Data 05/19/23 05:48 05/19/23 05:48 Labs: Laboratory Results - last 24 hr 05/18/23 00:04: Magnesium 2.5 05/18/23 04:02: Hemoglobin A1c 5.8 H 05/18/23 16:10: POC Glucose 88 05/18/23 22:46: POC Glucose 108 H 05/19/23 05:48: WBC 5.9, RBC 4.25, Hgb 11.8 L, Hct 38.0, MCV 89.4, MCH 27.8, MCHC 31.1 L, RDW Std Deviation 46.9 H, RDW Coeff of Vesna 14.5, Plt Count 260, MPV 10.2, Immature Gran % (Auto) 0.300, Neut % (Auto) 67.1, Lymph % (Auto) 18.6 L, [place] % (Auto) 10.9 H, Eos % (Auto) 2.9, Baso % (Auto) 0.2, Absolute Neuts (auto) 3.9, Absolute Lymphs (auto) 1.09, Nucleated RBC % 0 Radiography Diagnostic Testing: Radiology Impression Echocardiogram 05/17/23 16:07 Interpretation Summary The left ventricular ejection fraction is 65 %. Diastolic function is indeterminate. The left atrium is moderately enlarged. Mild prolapse of the posterior mitral valve leaflet. Mild to moderate mitral valve regurgitation. Mild (1+) pulmonic valve insufficiency. Aneurysmal interatrial septum. Echocardiogram from 2007 reported positive bubble study for possible tiny PFO. Ordering Physician: Chioma Victoria Performed By: Tori Blancas [facility] Physical Exam Narrative Physical Examination: General: Awake, alert, oriented x 3 and cooperative, seated upright in PCU bed, improved appearance, calm. Skin: Normal color, normal turgor, no icterus, no cyanosis. HEENT: AT/NC, EOMI, PERRLA, MMM. Lungs: CTA bilaterally, moderate effort, mild decrease BL bases, no rales, ronchi or wheezing. Heart: Regular rate and rhythm; no gallop, rub audible. Abdomen: Soft, thin habitus, NTTP, ND, normal BS. Extremities: No cyanosis, clubbing, or edema. Neurological: Patient awake, alert, oriented as noted, cognitive function appears intact; pupils equally reactive to light and accommodation, cranial nerves grossly normal, moving all 4 extremities, still some very mild drift with left upper and left lower extremity but appears even improved from the day prior, less difficulty also with left-sided [id number] and [id number], sensation remains intact. Psychiatric: Affect calm, more normal, no acute evidence of anxiety or dep ressive feelings but does have underlying anxiety. Assessment & Plan Assessment/Plan (1) Stroke: PLAN: Plan The patient is an 83 y/o F w/ PMHx: GERD, Hypothyroidism, HTN, HLD, Valvular Heart Disease who presents to the [facility] ED on 05/17/23 with history of kyphoplasty performed on day of presentation and after the procedure was having difficulty using her left side including her left upper extremity and left lower extremity with only MAC anesthesia used for approximately 15 minutes with last known well at noon just prior to procedure prompting ED transition with initial NIH stroke scale 3. 1. Left-sided hemiplegia, paresthesias secondary to acute infarct in the right frontal gyrus: Workup in the ED included CBC with WBC 8.5, Hgb 12.2, MCV 89.8, platelet 267 without marked shift, BMP with chloride 109 otherwise not marked appearing, troponin 143, urinalysis with no evidence of UTI, CT brain with chronic involutional changes, findings suggestive of an old ischemic change in the anterior right frontal lobe, CTA head and neck with minimal calcific plaque at the origin of the right ICA, chest x-ray with no acute cardiopulmonary findings with evidence of multiple old compression fractures with new midthoracic vertebroplasty evidence as well as old rib fractures on the right, old humeral neck fracture on the right. Admitted to PCU, MRI brain with probable subacute infarct in the right frontal gyrus. Follow-up CT brain secondary to stroke alert with subacute infarct in the right frontal lobe which was unchanged. ECHO with LVEF 65%, diastolic function indeterminate, moderately enlarged LA, mild to moderate MV regurgitation, mild PVI, aneurysmal intra- atrial septum, echocardiogram 2007 reported positive bubble study for possible tiny PFO. PT/OT/Speech/Nutrition evaluation per protocol. Maintained on permissive HTN, maintain on dual antiplt therapy w/ asa/plavix with plan for 21 days of dual therapy then aspirin 81 mg following per neurology recommendation, statin w/ AM FLP with TG 74, total cholesterol 186, LDL 79, VLDL 15, HDL 92, fall precautions. TSH 3.29, magnesium 2.5, HgbA1c 5.8% consistent with prediabetes with changes as noted. Maintain on fall and aspiration precautions. Neurology consulted with his noted recommendations including continue dual antiplatelet therapy for 21 days then transition to aspirin 81 mg daily thereafter, continue with statin, restart hypertensive regimen once appropriate, event monitor outpatient to assure no paroxysmal atrial fibrillation. ST evaluation with no concerns. 05/19/2023 no acute events overnight, PT/OT with ongoing evaluations with planned skilled versus possibly rehab, awaiting insurance approval. 2. Indeterminate cardiac enzyme, unclear etiology, possibly stress response/demand with #1: EKG in ED with sinus rhythm with right bundle branch block, LAFB and nonspecific ST changes unchanged from previous, CXR w/ no acute cardiopulmonary findings with evidence of several old fractures, initial trop 143, trended with repeat 137--> 82. Maintain on telemetry monitoring, echocardiogram requested, maintained on aspirin and Plavix as well as statin therapy as noted. Magnesium 2.5. 3. Chronic back pain status post recent kyphoplasty: Patient with recent kyphoplasty done on 05/17/2023 with unfortunately left-sided hemiplegia and paresthesias following, as noted patient is on dual antiplatelet therapy therefore will need to be very cautious given recent procedure, monitor for bleeding, PT/OT/CM consulted for discharge planning as noted. 4. Prediabetes: Hemoglobin A1c 5.8%, will transition to ADA diet to be cautious with Accu-Cheks with insulin sliding scale, nutrition consulted and following. 5. Hypertension: Given timeline will add back losartan and monitor blood pressure, would consider resuming amlodipine 05/20/2023 pending blood pressure trend 6. Hyperlipidemia: Upon presentation added statin regimen. AM FLP as noted. 7. Normocytic anemia, suspect chronic component: Admission hemoglobin 12.2, MCV 89.8, baseline appears primarily 12 but these are only 2 points otherwise, 05/18/2023 hemoglobin repeat 11.3-->05/19/23 Hgb 11.8. Will continue to trend very closely given usage of dual antiplatelet therapy and recent kyphoplasty as noted above. 8. Anxiety and depression: We will continue patient home sertraline and low dose ativan regimen. 9. Hypothyroidism: We will continue patient on levothyroxine regimen, TSH 3.29. 10. GERD: We will continue patient on PPI. 11. DVT Prophylaxis: Lovenox. 12. CODE status: DNR-CCA, no intubtaion. Charges/Coding Visit Charges Inpatient E&M: 06996 Subs Hosp L2
[2023-05-19 06:31] LABS: ALB/GLOB Ratio 1.2 RATIO (0.9-2.4); AST(SGOT) 19 U/L (15-37); Alanine Aminotransfer ALT/SGPT 21 U/L (13-56); Albumin, Serum 3.5 g/dL (3.2-5.0); Alkaline Phosphatase 72 U/L (45-117); Anion Gap 3 (5-15); BUN 15 mg/dL (7-18); BUN/Creat Ratio 23.7 RATIO (10-20); Calcium,Total 8.8 mg/dL (8.5-10.1); Chloride 109 mmol/L (98-107); Creatinine, Serum 0.63 mg/dL (0.55-1.02); EST Glomerular Filtration Rate 96 mL/min (>60); Est Glom Filt Rate - Afr Amer 116 mL/min (>60); Estimated Creatinine Clearance 39.62 ml/min; Glucose 100 mg/dL (74-106); Potassium 3.7 mmol/L (3.5-5.1); Protein, Total 6.5 g/dL (6.4-8.2); Sodium Level 142 mmol/L (136-145)
[2023-05-19 07:01] LABS: Bedside Glucose 104 mg/dL (74-106)
--- NOTE | 2023-05-19 08:22 | PN.NEURO_ITS ---
Objective Data Objective Data Vital Signs: Vital Signs Temp Pulse Resp BP Pulse Ox O2 Del Method O2 Flow Rate 97.5 F L 62 16 162/80 H 95 Room Air 2 05/19/23 04:00 05/19/23 04:00 05/19/23 04:00 05/19/23 04:00 05/19/23 04:00 05/19/23 04:00 05/18/23 08:00 Oxygen Flow Rate (L/min) 2 Oxygen Delivery Method Room Air Weight: 50.2 kg Body Mass Index (BMI) 22.3 Intake & Output: Intake and Output for Last 24 Hours 05/17/23 05/18/23 05/19/23 23:59 23:59 23:59 Intake Total 0 / 200 400 / 400 Balance 0 / 200 400 / 400 Lab / Micro Data 05/19/23 05:48 05/19/23 05:48 Labs: Laboratory Results - last 24 hr 05/18/23 00:04: Magnesium 2.5 05/18/23 04:02: Hemoglobin A1c 5.8 H 05/18/23 16:10: POC Glucose 88 05/18/23 22:46: POC Glucose 108 H 05/19/23 05:48: WBC 5.9, RBC 4.25, Hgb 11.8 L, Hct 38.0, MCV 89.4, MCH 27.8, MCHC 31.1 L, RDW Std Deviation 46.9 H, RDW Coeff of Vesna 14.5, Plt Count 260, MPV 10.2, Immature Gran % (Auto) 0.300, Neut % (Auto) 67.1, Lymph % (Auto) 18.6 L, [place] % (Auto) 10.9 H, Eos % (Auto) 2.9, Baso % (Auto) 0.2, Absolute Neuts (auto) 3.9, Absolute Lymphs (auto) 1.09, Nucleated RBC % 0, Sodium 142, Potassium 3.7, Chloride 109 H, Carbon Dioxide 30.0, Anion Gap 3 L, BUN 15, Creatinine 0.63, Estim Creat Clear Calc 39.62, Est GFR (MDRD) Af Amer 116, Est GFR (MDRD) Non-Af 96, BUN/Creatinine Ratio 23.7 H, Glucose 100, Calcium 8.8, Total Bilirubin 0.60, AST 19, ALT 21, Alkaline Phosphatase 72, Total Protein 6.5, Albumin 3.5, Globulin 3.0, Albumin/Globulin Ratio 1.2 05/19/23 06:42: POC Glucose 104 Radiography Diagnostic Testing: Radiology Impression Echocardiogram 05/17/23 16:07 Interpretation Summary The left ventricular ejection fraction is 65 %. Diastolic function is indeterminate. The left atrium is moderately enlarged. Mild prolapse of the posterior mitral valve leaflet. Mild to moderate mitral valve regurgitation. Mild (1+) pulmonic valve insufficiency. Aneurysmal interatrial septum. Echocardiogram from 2007 reported positive bubble study for possible tiny PFO. Ordering Physician: Chioma Victoria Performed By: Tori Blancas RDCS Physical Exam Neuro Neuro Narrative: Neurological examination: General:?The patient appears nutritionally appropriate, well-groomed, and appears comfortable in no acute distress.?Mental Status:??The patient?s mental status was normal including orientation.? Language was intact.??Cranial nerves:? Visual charles full,, and extra-ocular motion was intact. Face motion symmetric.? Tongue was midline with normal movement.? There was no dysarthria.?Motor:?Normal strength in right arm/leg and left leg. Mild left arm weakness, left pronator drift.?Sensation:?No numbness today.??Coordination:? Bilateral finger to nose was normal.? There was no dysmetria.?Gait:? deferred Subject: Neurology Subjective No new complaints. She reports the left arm feels pretty good . Numbness resolved Assessment and Plan: Stroke Assessment/Plan Assessment/Plan NURIA GAMEZ is a 83 yo RH F with a history of HTN, Hypothyroidism, HL, GERD, and vertebral fracture s/p thoracic kyphoplasty on 05/17/2023 (LKN 12p) under local MAC and post-op was noted to have left facial droop and left face/arm weakness/numbness. In ER telestroke showed NIHSS-1 (ER scored 3). CT brain showed right frontal hypodensity. CTA head/neck negative. She was admitted. MRI brain DWI shows a right frontal cortical MCA infarct. LDL 79. I do note 09/2021 TTE showed moderate LA enlargement- patient denies personal history of Afib and states she has only diagnosis of MV insufficiency. TTE EF 65%, LA mod enlargement. She is on Asa/Plavix, lipitor, and lovenox SQ. PT recommend SNF/Rehab Neurological examination shows mild left arm weakness. NIHSS-1 (LUE-1) ASSESSMENT/PLAN: Acute right MCA ischemic stroke post-stroke day #2 Stroke work-up completed. Final recommendations are to continue anti-platelet medication (recommend Asa/Plavix x 21 days per [facility] protocol then Asa 81mg only thereafter). Continue vascular risk factor modification. On lipitor 40. DVT prophylaxis with SCDs and lovenox SQ. Recommend Event monitor on discharged to rule out paroxysmal Afib. Will sign off, please call us with any further stroke related questions.
[2023-05-19] MEDS: Losartan Potassium 100 MG Tablet PO (08:59)
[2023-05-19] MEDS: LORazepam 0.5 MG Tablet PO (08:59)
[2023-05-19] MEDS: Aspirin 81 MG TAB.CHEW PO (09:00)
[2023-05-19] MEDS: Pantoprazole Sodium 40 MG Tablet PO (09:00)
[2023-05-19] MEDS: Sertraline 100 MG Tablet PO (09:00)
[2023-05-19] MEDS: Montelukast 10 MG Tablet PO (09:00)
[2023-05-19] MEDS: 0.9% Saline Lock 10 ML Syringe IV (09:01)
[2023-05-19 11:43] LABS: Bedside Glucose 98 mg/dL (74-106)
--- NOTE | 2023-05-19 13:32 | PCM.TXEXTCAR ---
Diet Diet Order/Speech Therapy: 05/19/23 11:53 Diet: Cardiac - Heart Healthy Dietary Modifications:: Consistent Carbohydrate Is pt able to select menu?: Yes Routine Orders/Code Status Enema Type: Fleetz Enema Frequency: Daily PRN Suppository Type: Dulcolax 10mg Suppository Frequency: Daily PRN Keep PO Greater than or Equal to (%): 92 Routine Lab Work: - (Repeat CBC and BMP in 1 week.) Code Status: DNRCC-A (DNR-CCA, no intubation) Wound(s) mid upper back: Wound Type: Surgical Incision Therapies Weight Bearing: Full weight bearing Physical Therapy: Eval and Treat Occupational Therapy: Eval and Treat Speech Therapy: Eval and Treat Problem/Diagnosis (1) Stroke: Status: Acute Code(s): I63.9 - Cerebral infarction, unspecified Allergies/Procedures Done in Hospital Allergies Sulfa (Sulfonamide Antibiotics) Allergy (Verified 09/06/21 11:06) Unknown Procedures: 2-D Echocardiogram and EKG Type of Care/Length of Stay Estimated LOS: Convalescent Care Less Than 30 days Type of Care Needed: Skilled Rehab Potential: Good Prognosis: Good Additional Orders/Day of Discharge Additional Orders: See additional discharge summary/care plan. Day of Discharge: 05/20/23 Dietary and Speech Recommendations Dietitian Recommendations/Changes: cardiac, CHO controlled diet as tolerated -- calorie controlled diet not indicated given age, wt. Discharge Plan Admission Admit Date/Time: 05/18/23 09:19 Primary Reason for Your Visit: Acute Stroke Attending Provider: Carmela Marrero Primary Care Provider: Giovanna Ruggiero Consulting Providers: Jovanni Live; Noemy Tellez; Molly Rodarte; Cherry Andrade; Ashley Gandara; Marco Antonio Peter; Minnie Ambriz; Jose Alfredo Escobar; Christiano Bolton; Kaylin Godinez; Jose L Mckeon; Ashley Miller; Mary Gaines; Radha Holt; Toño Quarles; Kamar Rowe; José Luis Ruano; Zenaida Howard; Yeni,Gabby; Chioma Victoria Instructions Additional Instructions / Restrictions: ADDITIONAL INFORMATION/PLAN OF CARE: 1. Acute Stroke w/ Left-sided hemiplegia (weakness), paresthesias secondary to acute infarct in the right frontal gyrus: --CT brain with chronic involutional changes, findings suggestive of an old ischemic change in the anterior right frontal lobe --CTA head and neck with minimal calcific plaque at the origin of the right ICA --Chest x-ray with no acute cardiopulmonary findings with evidence of multiple old compression fractures with new midthoracic vertebroplasty evidence as well as old rib fractures on the right, old humeral neck fracture on the right. --MRI brain with probable subacute infarct in the right frontal gyrus. --Follow-up CT brain secondary to stroke alert with subacute infarct in the right frontal lobe which was unchanged. --ECHO with LVEF 65%, diastolic function indeterminate, moderately enlarged LA, mild to moderate MV regurgitation, mild PVI, aneurysmal intra-atrial septum, echocardiogram 2007 reported positive bubble study for possible tiny PFO. --Stroke lab work-up included: FLP with TG 74, total cholesterol 186, LDL 79, VLDL 15, HDL 92, TSH 3.29, magnesium 2.5, HgbA1c 5.8% consistent with prediabetes. --Neurology consulted with his noted recommendations including continue dual antiplatelet therapy (asa 81 mg daily and plavix 75 mg) for 21 days then transition to aspirin 81 mg daily thereafter, event monitor outpatient to assure no paroxysmal atrial fibrillation which has also already been ordered. 2. Indeterminate cardiac enzyme, unclear etiology, possibly stress response/demand with #1: --EKG in ED with sinus rhythm with right bundle branch block, LAFB and nonspecific ST changes unchanged from previous. --CXR w/ no acute cardiopulmonary findings. --Cardiac enzymes trending down. --Echocardiogram as noted. 3. Chronic back pain status post recent kyphoplasty: --Recent 05/17/2023 kyphoplasty at [facility] Dr. Chavez. --Continue to closely monitor surgical region per staff at skilled given usage of dual antiplatelet therapy. --Encouraged continued physical and Occupational Therapy. --Please continue dry dressings to the region until follow-up with Dr. Chavez. --Please follow-up as recommended. Discharge Orders/Prescriptions Prescriptions: New melatonin 3 mg Tablet 3 mg PO QHS PRN PRN (Reason: Insomnia) Qty: 0 0RF atorvastatin 40 mg Tablet 40 mg PO QHS 30 Days Qty: 30 0RF clopidogrel 75 mg Tablet 75 mg PO 1999 21 Days Qty: 21 0RF Rx Instructions: Continue dual antiplt therapy with aspirin/plavix then after 21 days transition to asa only. aspirin 81 mg Tablet,Chewable 81 mg PO BREAKFAST 30 Days Qty: 0 0RF acetaminophen 325 mg Tablet 650 mg PO Q6H PRN PRN (Reason: Pain 1-10 Or Fever >100.7) Qty: 0 0RF Continued multivitamin Tablet 1 tab PO DAILY calcium carbonate-vitamin D3 [Calcium 600 with Vitamin D3] 600 mg(1,500mg) -500 unit capsule 1 cap PO DAILY biotin 800 mcg tablet 800 mcg PO DAILY cholecalciferol (vitamin D3) 25 mcg (1,000 unit) capsule 25 mcg PO DAILY fexofenadine [Heidi Allergy] 180 mg tablet 180 mg PO DAILY PRN (Reason: ALLERGIES) fluticasone propionate [Flonase Allergy Relief] 50 mcg/actuation spray,suspension 1 spray intranasal DAILY PRN (Reason: allergy symptoms) Rx Instructions: administer into each nostril Prolia 60 mg/mL syringe 60 mg subcut [id number] Patient Comments: LAST INJECTION ABOUT TWO MONTHS AGO levothyroxine 75 MCG tablet 75 mcg PO DAILY Patient Comments: M,T,TH,F amlodipine 10 mg tablet 10 mg PO DAILY losartan 100 mg tablet 100 mg PO DAILY montelukast 10 mg tablet 10 mg PO DAILY sertraline 100 mg tablet 100 mg PO Q24H levothyroxine [Euthyrox] 150 mcg tablet 150 mcg PO DAILY Patient Comments: W,S,S omeprazole 40 mg capsule,delayed release(DR/EC) 40 mg PO DAILY Patient Comments: TAKE 1 CAPSULE BY MOUTH EVERY DAY montelukast [Singulair] 10 mg tablet 10 mg PO DAILY lorazepam 0.5 mg tablet 0.5 mg PO DAILY Patient Comments: TAKE 1 TABLET BY MOUTH DAILY NEEDED FOR ANXIETY Discontinued rosuvastatin 5 mg tablet 5 mg PO DAILY Other Ambulatory Orders: 30 Day Event Recorder Preventi (Routine) Timeframe: 1 Day Facility: [facility] - Location: Cardiovascular Services Ordered By: Dr. Carmela Marrero Referrals / Follow Up: Marquez Chavez DO [Med Staff - Active Staff] - (Follow-up within 1 week to have evaluation following recent surgery.) Marlon Cabello MD [Non-Staff -Ordering Privileges] - (Follow-up to establish with Neurology, take first open visit, ideally 4-8 weeks.) Giovanna Ruggiero, [employer]ARM[employer]ILANCE [employer]AF[employer] EXPERT-C [Primary Care Provider] - (Follow-up within 3-5 days to review admission.)
[2023-05-19 17:11] LABS: Bedside Glucose 92 mg/dL (74-106)
[2023-05-19] MEDS: Atorvastatin Calcium 40 MG Tablet PO (20:42)
[2023-05-19] MEDS: Clopidogrel Bisulfate 75 MG Tablet PO (20:42)
[2023-05-19 22:39] LABS: Bedside Glucose 95 mg/dL (74-106)
[2023-05-20 03:05] VITALS: BP 178/90; PULSE 61; RESP 18; TEMP 36.9; O2SAT 96
[2023-05-20] MEDS: amLODIPine 10 MG Tablet PO ×2 (03:37→10:26)
[2023-05-20 04:38] VITALS: BP 154/74
[2023-05-20] MEDS: Enoxaparin 40 MG/0.4 ML Syringe SC (05:18)
[2023-05-20] MEDS: Levothyroxine 75 MCG Tablet PO (05:19)
[2023-05-20 06:00] VITALS: BP 154/74; PULSE 65; RESP 18; TEMP 36.9; O2SAT 95
[2023-05-20 06:38] LABS: Bedside Glucose 85 mg/dL (74-106)
[2023-05-20 07:45] LABS: Absolute Neutrophil Count 3.5 X10^3/uL (2.0-7.7); Basophil# 0.02 X10^3/uL; Basophil% 0.4 % (0-1); Eosinophil# 0.18 X10^3/uL; Eosinophils% 3.3 % (0-5); Hematocrit 37.4 % (37-47); Mean Corp Hgb Conc 32.1 g/dL (32-36); Mean Corpuscular Hgb 28.2 pg (27.0-32.0); Mean Platelet Vol. 10.3 fl (6.2-12.0); Monocyte# 0.53 X10^3/uL; Monocyte% 9.7 % (0-10); NRBC Flagged by Analyzer 0 % (0-5); Neutrophil % 64.2 % (47-70); Platelet Count 256 K/mm3 (150-450); RBC Distribution Width CV 14.5 % (11.6-14.6); RBC Distribution Width SD 46.5 fl (35.1-43.9); Red Blood Count 4.25 M/mm3 (4.2-5.4); White Blood Count 5.5 K/mm3 (4.4-11.0)
[2023-05-20 07:55] VITALS: BP 137/84; PULSE 61; RESP 16; TEMP 36.2; O2SAT 96
[2023-05-20] MEDS: LORazepam 0.5 MG Tablet PO (08:03)
[2023-05-20 08:04] LABS: ALB/GLOB Ratio 1.1 RATIO (0.9-2.4); AST(SGOT) 19 U/L (15-37); Alanine Aminotransfer ALT/SGPT 20 U/L (13-56); Albumin, Serum 3.5 g/dL (3.2-5.0); Alkaline Phosphatase 75 U/L (45-117); Anion Gap 6 (5-15); BUN 14 mg/dL (7-18); BUN/Creat Ratio 22.4 RATIO (10-20); Calcium,Total 8.6 mg/dL (8.5-10.1); Chloride 111 mmol/L (98-107); Creatinine, Serum 0.62 mg/dL (0.55-1.02); EST Glomerular Filtration Rate 97 mL/min (>60); Est Glom Filt Rate - Afr Amer 118 mL/min (>60); Estimated Creatinine Clearance 39.62 ml/min; Globulin 3.2 g/dL (2.2-4.2); Glucose 98 mg/dL (74-106); Protein, Total 6.7 g/dL (6.4-8.2); Sodium Level 143 mmol/L (136-145)
[2023-05-20] MEDS: Aspirin 81 MG TAB.CHEW PO (08:04)
[2023-05-20] MEDS: Montelukast 10 MG Tablet PO (08:04)
[2023-05-20] MEDS: Pantoprazole Sodium 40 MG Tablet PO (08:04)
[2023-05-20] MEDS: Sertraline 100 MG Tablet PO (08:04)
[2023-05-20] MEDS: Losartan Potassium 100 MG Tablet PO (08:04)
--- NOTE | 2023-05-20 09:48 | PN.HOSP_ITS ---
Reason for Visit Reason for Visit: Diagnoses Hypothyroidism, unspecified (05/18/23) Essential (primary) hypertension (05/18/23) Cerebral infarction, unspecified (05/18/23) Gastro-esophageal reflux disease without esophagitis (05/18/23) Subjective Subjective Feels better. Still with some ataxia of the left upper extremity. Objective Data Objective Data Vital Signs: Vital Signs Temp Pulse Resp BP Pulse Ox O2 Del Method O2 Flow Rate 36.2 C L 61 16 137/84 H 96 Room Air 2 05/20/23 07:55 05/20/23 07:55 05/20/23 07:55 05/20/23 07:55 05/20/23 07:55 05/20/23 08:00 05/19/23 07:54 Oxygen Flow Rate (L/min) 2 Oxygen Delivery Method Room Air Weight: 50.2 kg Body Mass Index (BMI) 22.3 Intake & Output: Intake and Output for Last 24 Hours 05/18/23 05/19/23 05/20/23 23:59 23:59 23:59 Intake Total 400 / 400 975 / 975 Balance 400 / 400 975 / 975 Lab / Micro Data 05/20/23 07:10 05/20/23 07:10 Labs: Laboratory Results - last 24 hr 05/19/23 11:25: POC Glucose 98 05/19/23 16:54: POC Glucose 92 05/19/23 22:07: POC Glucose 95 05/20/23 06:20: POC Glucose 85 05/20/23 07:10: WBC 5.5, RBC 4.25, Hgb 12.0, Hct 37.4, MCV 88.0, MCH 28.2, MCHC 32.1, RDW Std Deviation 46.5 H, RDW Coeff of Vesna 14.5, Plt Count 256, MPV 10.3, Immature Gran % (Auto) 0.400, Neut % (Auto) 64.2, Lymph % (Auto) 22.0, [place] % (Auto) 9.7, Eos % (Auto) 3.3, Baso % (Auto) 0.4, Absolute Neuts (auto) 3.5, Absolute Lymphs (auto) 1.20, Nucleated RBC % 0, Sodium 143, Potassium 4.0, Chloride 111 H, Carbon Dioxide 26.0, Anion Gap 6, BUN 14, Creatinine 0.62, Estim Creat Clear Calc 39.62, Est GFR (MDRD) Af Amer 118, Est GFR (MDRD) Non-Af 97, BUN/Creatinine Ratio 22.4 H, Glucose 98, Calcium 8.6, Total Bilirubin 0.40, AST 19, ALT 20, Alkaline Phosphatase 75, Total Protein 6.7, Albumin 3.5, Globulin 3.2, Albumin/Globulin Ratio 1.1 Physical Exam Const alert and no apparent distress HEENT head/scalp atraumatic Neuro oriented x3, CN's II-XII intact bilaterally, moves all extremities and no focal motor deficits Neuro Narrative: Slight ataxia of the left upper extremity. Sensorium / Orientation: awake and alert Coordination / Balance: [id number] test normal Motor Exam: strength 5/5 throughout Assessment & Plan Assessment/Plan (1) Stroke: PLAN: Plan Acute CVA * Left-sided hemiplegia, paresthesias secondary to acute infarct in the right frontal gyrus: * Neurology consulted with his noted recommendations including continue dual antiplatelet therapy for 21 days then transition to aspirin 81 mg daily thereafter, continue with statin, restart hypertensive regimen once appropriate, event monitor outpatient to assure no paroxysmal atrial fibrillation. * ST evaluation with no concerns. PT/OT with ongoing evaluations with planned skilled versus possibly rehab, awaiting insurance approval. Indeterminate cardiac enzyme, * initial trop 143, trended with repeat 137--> 82. * echocardiogram requested * maintained on aspirin and Plavix as well as statin therapy as noted. Magnesium 2.5. Chronic conditions: * Chronic back pain status post recent kyphoplasty: Patient with recent kyphopla sty done on 05/17/2023 with unfortunately left-sided hemiplegia and paresthesias following, as noted patient is on dual antiplatelet therapy therefore will need to be very cautious given recent procedure, monitor for bleeding, PT/OT/CM consulted for discharge planning as noted. * Prediabetes: Hemoglobin A1c 5.8%, will transition to ADA diet to be cautious with Accu-Cheks with insulin sliding scale, nutrition consulted and following. * Hypertension: Given timeline will add back losartan and monitor blood pressure, would consider resuming amlodipine 05/20/2023 pending blood pressure trend * Hyperlipidemia: Upon presentation added statin regimen. AM FLP as noted. * Normocytic anemia, suspect chronic component: Admission hemoglobin 12.2, MCV 89.8, baseline appears primarily 12 but these are only 2 points otherwise, 05/18/2023 hemoglobin repeat 11.3-->05/19/23 Hgb 11.8. Will continue to trend very closely given usage of dual antiplatelet therapy and recent kyphoplasty as noted above. * Anxiety and depression: We will continue patient home sertraline and low dose ativan regimen. * Hypothyroidism: We will continue patient on levothyroxine regimen, TSH 3.29. * GERD: We will continue patient on PPI. DVT Prophylaxis: Lovenox. CODE status: DNR-CCA, no intubtaion.
[2023-05-20 10:25] VITALS: BP 158/71; PULSE 68; RESP 18; TEMP 36.4; O2SAT 98
--- NOTE | 2023-05-20 10:35 | CASEMGMT ---
Patient is requesting SNF. ANNY reviewed patient's therapy notes. Patient is doing well and will likely not get approved to go to a senior living. 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 ANNY met with patient and her son. ANNY explained to patient that her insurance is likely not going to approve her to go to a senior living. SW explained insurance will look at her therapy notes and see how well she is doing. They will recommend home health or outpatient. Patient asked how that works. ANNY explained how home health works and outpatient. Patient said she will review the home health list. SW let patient know ANNY comptometer operator CM will come back to see her choices and then make referrals. Minnie HANNAH
[2023-05-20 14:08] VITALS: BMI 22.3
--- NOTE | 2023-05-20 14:16 | PCM.DC.SUM ---
Providers Date of Admission: 05/18/23 Primary Care Physician: Giovanna Ruggiero, KATYC Consultations 05/17/23 18:25 Consult: Tele-Neurology Routine Consulting Provider: [facility] Reason for Consult: Acute Ischemic Stroke/TIA EMERGENT Consult: No MD Notified: Yes Date Notified: 05/17/23 Time Notified: 20:00 Method of Notification: ED Physician Initiated Comments:: Pt was stroke call in ED, routine f/u stroke tomorrow Nursing Unit Staff Notify [facility] of Tele-Neurology Consult: Yes Reason For Visit: STROKE, HYPERTENSION Diagnosis Discharge Diagnosis (1) Stroke: Status: Acute Code(s): I63.9 - Cerebral infarction, unspecified Plan Acute CVA Left-sided hemiplegia, paresthesias secondary to acute infarct in the right frontal gyrus: Neurology consulted with his noted recommendations including continue dual antiplatelet therapy for 21 days then transition to aspirin 81 mg daily thereafter, continue with statin, restart hypertensive regimen once appropriate, event monitor outpatient to assure no paroxysmal atrial fibrillation. ST evaluation with no concerns. PT/OT with ongoing evaluations with planned skilled versus possibly rehab, awaiting insurance approval. Indeterminate cardiac enzyme, initial trop 143, trended with repeat 137--> 82. echocardiogram requested maintained on aspirin and Plavix as well as statin therapy as noted. Magnesium 2.5. Chronic conditions: Chronic back pain status post recent kyphoplasty: Patient with recent kyphoplasty done on 05/17/2023 with unfortunately left-sided hemiplegia and paresthesias following, as noted patient is on dual antiplatelet therapy therefore will need to be very cautious given recent procedure, monitor for bleeding, PT/OT/CM consulted for discharge planning as noted. Prediabetes: Hemoglobin A1c 5.8%, will transition to ADA diet to be cautious with Accu-Cheks with insulin sliding scale, nutrition consulted and following. Hypertension: Given timeline will add back losartan and monitor blood pressure, would consider resuming amlodipine 05/20/2023 pending blood pressure trend Hyperlipidemia: Upon presentation added statin regimen. AM FLP as noted. Normocytic anemia, suspect chronic component: Admission hemoglobin 12.2, MCV 89.8, baseline appears primarily 12 but these are only 2 points otherwise, 05/18/2023 hemoglobin repeat 11.3-->05/19/23 Hgb 11.8. Will continue to trend very closely given usage of dual antiplatelet therapy and recent kyphoplasty as noted above. Anxiety and depression: We will continue patient home sertraline and low dose ativan regimen. Hypothyroidism: We will continue patient on levothyroxine regimen, TSH 3.29. GERD: We will continue patient on PPI. DVT Prophylaxis: Lovenox. CODE status: DNR-CCA, no intubtaion. Medications at Discharge Home Medications levothyroxine 75 mcg tablet 75 mcg PO DAILY 03/11/17 denosumab 60 mg/mL subcutaneous syringe (Prolia) 60 mg subcut [id number] 08/30/20 fexofenadine 180 mg tablet (Heidi Allergy) 180 mg PO DAILY PRN ALLERGIES 08/30/20 fluticasone propionate 50 mcg/actuation nasal spray,suspension (Flonase Allergy Relief) 1 spray intranasal DAILY PRN allergy symptoms 08/30/20 biotin 800 mcg tablet 800 mcg PO DAILY 09/01/20 calcium carbonate 600 mg-vitamin D3 12.5 mcg (500 unit) capsule (Calcium 600 with Vitamin D3) 1 cap PO DAILY 09/01/20 cholecalciferol (vitamin D3) 25 mcg (1,000 unit) capsule 25 mcg PO DAILY 09/01/20 multivitamin 1 tab PO DAILY 09/01/20 amlodipine 10 mg tablet 10 mg PO DAILY 05/17/23 levothyroxine 150 mcg tablet (Euthyrox) 150 mcg PO DAILY 05/17/23 lorazepam 0.5 mg tablet 0.5 mg PO DAILY 05/17/23 losartan 100 mg tablet 100 mg PO DAILY 05/17/23 montelukast 10 mg tablet 10 mg PO DAILY 05/17/23 montelukast 10 mg tablet (Singulair) 10 mg PO DAILY 05/17/23 omeprazole 40 mg capsule,delayed release 40 mg PO DAILY 05/17/23 sertraline 100 mg tablet 100 mg PO Q24H 05/17/23 acetaminophen 325 mg tablet 650 mg (2 x 325 mg) PO Q6H PRN PRN Pain 1-10 Or Fever >100.7 #0 tabs 05/19/23 aspirin 81 mg chewable tablet 81 mg PO BREAKFAST 30 days #0 tabs 05/19/23 atorvastatin 40 mg tablet 40 mg PO QHS 30 days #30 tabs 05/19/23 clopidogrel 75 mg tablet 75 mg PO 2000 21 days #21 tabs 05/19/23 melatonin 3 mg tablet 3 mg PO QHS PRN PRN Insomnia #0 tabs 05/19/23 Hospital Course Operations None Procedures 2-D Echocardiogram Summary of Care Provided Minutes Spent on Discharge: 32 Hospital Course: Patient presented with acute left-sided hemiparesis. Patient was found to have a right frontal gyrus CVA. Symptoms overall have improved. Patient still does have some ataxia left upper extremity but otherwise no acute process. Patient continue with aspirin and clopidogrel. Patient follow-up with neurology as outpatient. Weight / BMI Weight Weight: 50.2 kg Body Mass Index (BMI) 22.3 ABG / Lab / Microbiology Data 05/20/23 07:10 05/20/23 07:10 Laboratory: Laboratory Results - last 24 hr 05/19/23 16:54: POC Glucose 92 05/19/23 22:07: POC Glucose 95 05/20/23 06:20: POC Glucose 85 05/20/23 07:10: WBC 5.5, RBC 4.25, Hgb 12.0, Hct 37.4, MCV 88.0, MCH 28.2, MCHC 32.1, RDW Std Deviation 46.5 H, RDW Coeff of Ves[place] 14.5, Plt Count 256, MPV 10.3, Immature Gran % (Auto) 0.400, Neut % (Auto) 64.2, Lymph % (Auto) 22.0, [place] % (Auto) 9.7, Eos % (Auto) 3.3, Baso % (Auto) 0.4, Absolute Neuts (auto) 3.5, Absolute Lymphs (auto) 1.20, Nucleated RBC % 0, Sodium 143, Potassium 4.0, Chloride 111 H, Carbon Dioxide 26.0, Anion Gap 6, BUN 14, Creatinine 0.62, Estim Creat Clear Calc 39.62, Est GFR (MDRD) Af Amer 118, Est GFR (MDRD) Non-Af 97, BUN/Creatinine Ratio 22.4 H, Glucose 98, Calcium 8.6, Total Bilirubin 0.40, AST 19, ALT 20, Alkaline Phosphatase 75, Total Protein 6.7, Albumin 3.5, Globulin 3.2, Albumin/Globulin Ratio 1.1 D/C Instructions Discharge Diet: Low fat / Low cholesterol Meaningful Use Info Meaningful Use Diagnoses (Choose all that apply): Ischemic CVA CVA Therapy Assessed for PT,OT and/or ST?: Yes Ischemic Stroke Antithrombotic order at d/c?: Yes Dx of Atrial fib/flutter?: No Anticoagulant at discharge?: No Reason anticoagulant not ordered: Treatment not Indicated Statins at discharge?: Yes Primary Dx Acute Ischemic CVA?: Yes IV thrombolytic ordered during stay?: No Reason IV thrombolytic not ordered: Treatment not Indicated Discharge Plan Admission Admit Date/Time: 05/18/23 09:19 Primary Reason for Your Visit: Acute Stroke Attending Provider: Gabe Elam Primary Care Provider: Giovanna Ruggiero Consulting Providers: Jovanni Live; Noemy Tellez; Molly Rodarte; Cherry Andrade; Ashley Gandara; Marco Antonio Peter; Minnie Ambriz; Jose Alfredo Escobar; Christiano Bolton; Kaylin Godinez; Jose L Mckeon; Ashley Miller; Mary Gaines; Radha Holt; Toño Quarles; Kamar Rowe; José Luis Ruano; Zenaida Howard; Gabby Jaime; Chioma Victoria; Carmela Marrero Instructions Additional Instructions / Restrictions: ADDITIONAL INFORMATION/PLAN OF CARE: 1. Acute Stroke w/ Left-sided hemiplegia (weakness), paresthesias secondary to acute infarct in the right frontal gyrus: --CT brain with chronic involutional changes, findings suggestive of an old ischemic change in the anterior right frontal lobe --CTA head and neck with minimal calcific plaque at the origin of the right ICA --Chest x-ray with no acute cardiopulmonary findings with evidence of multiple old compression fractures with new midthoracic vertebroplasty evidence as well as old rib fractures on the right, old humeral neck fracture on the right. --MRI brain with probable subacute infarct in the right frontal gyrus. --Follow-up CT brain secondary to stroke alert with subacute infarct in the right frontal lobe which was unchanged. --ECHO with LVEF 65%, diastolic function indeterminate, moderately enlarged LA, mild to moderate MV regurgitation, mild PVI, aneurysmal intra-atrial septum, echocardiogram 2007 reported positive bubble study for possible tiny PFO. --Stroke lab work-up included: FLP with TG 74, total cholesterol 186, LDL 79, VLDL 15, HDL 92, TSH 3.29, magnesium 2.5, HgbA1c 5.8% consistent with prediabetes. --Neurology consulted with his noted recommendations including continue dual antiplatelet therapy (asa 81 mg daily and plavix 75 mg) for 21 days then transition to aspirin 81 mg daily thereafter, event monitor outpatient to assure no paroxysmal atrial fibrillation which has also already been ordered. 2. Indeterminate cardiac enzyme, unclear etiology, possibly stress response/demand with #1: --EKG in ED with sinus rhythm with right bundle branch block, LAFB and nonspecific ST changes unchanged from previous. --CXR w/ no acute cardiopulmonary findings. --Cardiac enzymes trending down. --Echocardiogram as noted. 3. Chronic back pain status post recent kyphoplasty: --Recent 05/17/2023 kyphoplasty at [facility] Dr. Chavez. --Continue to closely monitor surgical region per staff at [facility] given usage of dual antiplatelet therapy. --Encouraged continued physical and Occupational Therapy. --Please continue dry dressings to the region until follow-up with Dr. Chavez. --Please follow-up as recommended. Discharge Orders/Prescriptions Prescriptions: New melatonin 3 mg Tablet 3 mg PO QHS PRN PRN (Reason: Insomnia) Qty: 0 0RF atorvastatin 40 mg Tablet 40 mg PO QHS 30 Days Qty: 30 0RF clopidogrel 75 mg Tablet 75 mg PO 2000 21 Days Qty: 21 0RF Rx Instructions: Continue dual antiplt therapy with aspirin/plavix then after 21 days transition to asa only. aspirin 81 mg Tablet,Chewable 81 mg PO BREAKFAST 30 Days Qty: 0 0RF acetaminophen 325 mg Tablet 650 mg PO Q6H PRN PRN (Reason: Pain 1-10 Or Fever >100.7) Qty: 0 0RF Continued multivitamin Tablet 1 tab PO DAILY calcium carbonate-vitamin D3 [Calcium 600 with Vitamin D3] 600 mg(1,500mg) -500 unit capsule 1 cap PO DAILY biotin 800 mcg tablet 800 mcg PO DAILY cholecalciferol (vitamin D3) 25 mcg (1,000 unit) capsule 25 mcg PO DAILY fexofenadine [Heidi Allergy] 180 mg tablet 180 mg PO DAILY PRN (Reason: ALLERGIES) fluticasone propionate [Flonase Allergy Relief] 50 mcg/actuation spray,suspension 1 spray intranasal DAILY PRN (Reason: allergy symptoms) Rx Instructions: administer into each nostril Prolia 60 mg/mL syringe 60 mg subcut [id number] Patient Comments: LAST INJECTION ABOUT TWO MONTHS AGO levothyroxine 75 MCG tablet 75 mcg PO DAILY Patient Comments: M,T,TH,F amlodipine 10 mg tablet 10 mg PO DAILY losartan 100 mg tablet 100 mg PO DAILY montelukast 10 mg tablet 10 mg PO DAILY sertraline 100 mg tablet 100 mg PO Q24H levothyroxine [Euthyrox] 150 mcg tablet 150 mcg PO DAILY Patient Comments: W,S,S omeprazole 40 mg capsule,delayed release(DR/EC) 40 mg PO DAILY Patient Comments: TAKE 1 CAPSULE BY MOUTH EVERY DAY montelukast [Singulair] 10 mg tablet 10 mg PO DAILY lorazepam 0.5 mg tablet 0.5 mg PO DAILY Patient Comments: TAKE 1 TABLET BY MOUTH DAILY NEEDED FOR ANXIETY Discontinued rosuvastatin 5 mg tablet 5 mg PO DAILY Other Ambulatory Orders: 30 Day Event Recorder Preventi (Routine) Timeframe: 1 Day Facility: [facility] [place] - Location: Cardiovascular Services Ordered By: Dr. Carmela Marrero Referrals / Follow Up: Marquez Chavez DO [Med Staff - Active Staff] - (Follow-up within 1 week to have evaluation following recent surgery.) Marlon Cabello MD [Non-Staff -Ordering Privileges] - (Follow-up to establish with Neurology, take first open visit, ideally 4-8 weeks.) Giovanna Ruggiero NP-C [Primary Care Provider] - (Follow-up within 3-5 days to review admission.) Disposition Disposition (needs filled in before D/C Order can be placed): Home Health Service Charges/Coding Visit Charges Inpatient E&M: 69568 Disch Hosp >30min
[2023-05-20 14:24] VITALS: BMI 22.3
--- NOTE | 2023-05-20 14:26 | PHA.DC.MR.R ---
Pharmacy PA Med Reconciliation Pharmacy Service has performed discharge medication reconciliation for this patient. The patient's discharge medication list was reviewed for discrepancies and discrepancies were resolved. Medications at Discharge Home Medications levothyroxine 75 mcg tablet 75 mcg PO DAILY 03/11/17 denosumab 60 mg/mL subcutaneous syringe (Prolia) 60 mg subcut [id number] 08/30/20 fexofenadine 180 mg tablet (Heidi Allergy) 180 mg PO DAILY PRN ALLERGIES 08/30/20 fluticasone propionate 50 mcg/actuation nasal spray,suspension (Flonase Allergy Relief) 1 spray intranasal DAILY PRN allergy symptoms 08/30/20 biotin 800 mcg tablet 800 mcg PO DAILY 09/01/20 calcium carbonate 600 mg-vitamin D3 12.5 mcg (500 unit) capsule (Calcium 600 with Vitamin D3) 1 cap PO DAILY 09/01/20 cholecalciferol (vitamin D3) 25 mcg (1,000 unit) capsule 25 mcg PO DAILY 09/01/20 multivitamin 1 tab PO DAILY 09/01/20 amlodipine 10 mg tablet 10 mg PO DAILY 05/17/23 levothyroxine 150 mcg tablet (Euthyrox) 150 mcg PO DAILY 05/17/23 lorazepam 0.5 mg tablet 0.5 mg PO DAILY 05/17/23 losartan 100 mg tablet 100 mg PO DAILY 05/17/23 montelukast 10 mg tablet 10 mg PO DAILY 05/17/23 montelukast 10 mg tablet (Singulair) 10 mg PO DAILY 05/17/23 omeprazole 40 mg capsule,delayed release 40 mg PO DAILY 05/17/23 sertraline 100 mg tablet 100 mg PO Q24H 05/17/23 acetaminophen 325 mg tablet 650 mg (2 x 325 mg) PO Q6H PRN PRN Pain 1-10 Or Fever >100.7 #0 tabs 05/19/23 aspirin 81 mg chewable tablet 81 mg PO BREAKFAST 30 days #0 tabs 05/19/23 atorvastatin 40 mg tablet 40 mg PO QHS 30 days #30 tabs 05/19/23 clopidogrel 75 mg tablet 75 mg PO 2000 21 days #21 tabs 05/19/23 melatonin 3 mg tablet 3 mg PO QHS PRN PRN Insomnia #0 tabs 05/19/23
[2023-05-20 14:30] VITALS: BP 134/80; PULSE 68; RESP 16; TEMP 36.6; O2SAT 97
--- NOTE | 2023-05-20 14:55 | CASEMGMT ---
Addendum entered by Araceli Browning 05/20/23 15:39: RN CM received call back from [facility] and they are able to accept the patient with planned start of care for . RN CM updated patient. Patient had no further questions or concerns. Original Note: RN CM in to discuss needs at discharge. Patient would like [facility] and after reviewing list prefers [facility]. Patient denied further needs or help at discharge. RN CM called and made referral to [facility], awaiting acceptance.
--- NOTE | 2023-05-20 16:32 | CHAPLAIN ---
Type of Pastoral Visit ___ Initial Visit _x__ Follow-up Visit ___ On-call Visit ___ General Patient Visit ___ Spiritual Assessment ___ Family Conference ___ Bereavement ___ Rapid Response ___ Code Blue ___ Other (describe below) Pastoral Care Referral From _x__ Patient ___ Family ___ Nurse ___ Physician ___ Compound Filler ___ Pin Drafting Machine Operator ___ Other (describe below) Sacrament/Intervention _x__ Active listening ___ Anointing ___ Pentecostal ___ Bereavement ___ Communion _x__ Kindra exploration ___ _x__ Life review _x__ Prayer ___ Reconciliation ___ Sacrament of Sick ___ Supportive presence ___ Wedding ___ Other (describe below) Pastoral Comments patient is waiting to be discharged after weekend admission from possible stroke; spouse is with her and they are waiting for their transportation; pt is talkative and expresses her fred of reading Christianity literature; pt gives some life review and current status of their participation in a kindra community; offer of prayer is welcomed; offer of support and follow up is appreciated
== END 2023-05-20 16:23 | disposition home or self-care (01) | DRG 65 ==
LOC: ED 15:50 → PCU 16:11
PROVIDERS: Family Medicine; Internal Medicine; Admitting Provider Internal Medicine; Emergency Provider Emergency Medicine; PCP Nurse Practitioner Family
DX: I63.9 Cerebral infarction, unspecified (principal); G81.94 Hemiplegia, unspecified affecting left nondominant side; I48.0 Paroxysmal atrial fibrillation; I10 Essential (primary) hypertension; E03.9 Hypothyroidism, unspecified; F32.A Depression, unspecified; E78.00 Pure hypercholesterolemia, unspecified; K21.9 Gastro-esophageal reflux disease without esophagitis; F41.9 Anxiety disorder, unspecified; R79.89 Other specified abnormal findings of blood chemistry; R29.703 NIHSS score 3; R73.03 Prediabetes; Z66 Do not resuscitate; Z79.02 Long term (current) use of antithrombotics/antiplatelets; Z79.82 Long term (current) use of aspirin; Z79.890 Hormone replacement therapy; Z79.899 Other long term (current) drug therapy
CPT/HCPCS: 36415; 70450; 70496; 70498; 70551; 71045; 80048; 80053; 80061; 81001; 82962; 83036; 83735; 84443; 84484; 85025; 85610; 85730; 88305; 88311; 92610; 93005; 93308; 94762; 97116; 97162; 97165; 97530; 97535; 97537; 97802; 99285; Q9967; A4216

== ENCOUNTER 2023-05-17 15:55 | Outpatient (CLI) | payer MEDICARE, SELFPAY ==
--- NOTE | 2023-05-17 | BON_PTH ---
PATHOLOGY RESULTS PATIENT: NURIA GAMEZ LOC: [facility] U#:[id number] AGE/SX: 83/F ROOM: RE05/17/[address]: Dr. Marquez Chavez DO : 1940 BED: DIS: 05/17/2023 SPEC #: [id number] RECD: 05/20/23 07:30 STATUS: ZANDRA REChicho #: [id number] SYDNI: 05/17/23 00:[address]: Marquez Chavez DEPT: SURGICAL PATHOLOGY RECD BY: Rosanna Kuhn ENTERED: 05/20/23 07:31 SP TYPE: Bone OTHR DR: Giovanna Ruggiero, BL[facility]ICK[facility] Tissues: Vertebra, NOS Procedures: Decalcification bone/plaque Surgery Specimen Level V HEADER OPERATION: T8 kyphoplasty PRE-OP DIAGNOSIS: Not noted TISSUE SUBMITTED: T8 vertebral body bone MICROSCOPIC DIAGNOSIS T8 vertebral body, bone biopsy: Trilineage hematopoiesis. No evidence of malignancy. AM:aung 05/21/2023 MICROSCOPIC DESCRIPTION Slides are reviewed. GROSS DESCRIPTION Received in fixative is one container labeled with the patient's name and designated vertebral body T8. The specimen consists of two irregular fragments of bone that in aggregate measure 0.5 x 0.4 x 0.1 cm. The specimen is totally submitted in one cassette after decalcification. / SJ:aung 05/20/2023 TC:5 CPT: 29148, 84145
== END 2023-05-17 23:59 | disposition home or self-care (01) ==
LOC: LABSPEC 16:00
PROVIDERS: PCP Nurse Practitioner Family; Referring Provider Orthopaedic Surgery; Visit Provider Orthopaedic Surgery
DX: Z98.890 Other specified postprocedural states (principal)
CPT/HCPCS: 88305; 88307; 88311

== ENCOUNTER 2023-07-16 02:35 | Emergency (ER) | payer MEDICARE, SELFPAY ==
[2023-07-16] VITALS (22 sets, daily range): BP systolic 88–152; BP diastolic 43–96; PULSE 54–67; RESP 11–23; TEMP 36.4–36.7; O2SAT 92–99; BMI 22.4
--- NOTE | 2023-07-16 02:43 | RAD_ITS ---
INDICATION: chest pain EXAMINATION/TECHNIQUE: X-RAY - XR Chest 1 View COMPARISON: Chest x-ray from 05/17/2023 FINDINGS: LINES/DEVICES: None. LUNGS: No pulmonary edema or focal airspace consolidation. No sizable pleural effusion. No pneumothorax detected. MEDIASTINUM AND CARDIOVASCULAR STRUCTURES: Stable slightly prominent heart shadow. Atherosclerotic calcifications along aorta. BONES AND SOFT TISSUES: Chronic right rib fractures. Chronic midthoracic vertebral fractures status post vertebroplasty. Stable skeletal degenerative changes and stable mild scoliotic curvature of spine. RAD/Chest 1 View (Portable) IMPRESSION: Atherosclerotic disease and mild cardiomegaly Electronically Signed: Trino Piña MD at 4:39 EDT ,
--- NOTE | 2023-07-16 02:43 | EKG12_ITS ---
Test Reason : CP Blood Pressure : / mmHG Vent. Rate : 051 BPM Atrial Rate : 051 BPM P-R Int : 206 ms QRS Dur : 136 ms QT Int : 508 ms P-R-T Axes : 043 -56 018 degrees QTc Int : 468 ms Sinus bradycardia Right bundle branch block Left anterior fascicular block Bifascicular block Minimal voltage criteria for LVH, may be normal variant ( R in aVL ) Abnormal ECG Confirmed by Edenilson Harding ([id number]), content editor LAYTON VERMA ([id number]) on 07/17/2023 5:47:21 AM Referred By: TINO Confirmed By:Edenilson Harding
--- NOTE | 2023-07-16 02:49 | EDS_ITS ---
HPI History of Present Illness Chief Complaint: Chest Pain Informant: patient and EMS Narrative Narrative: 83-year-old female presenting to the emergency room chief complaint chest pain. Patient states that she got up to use the bathroom around 0130 hrs. She went back to bed and lay down and began to have a burning heartburn-like pain in the center of her chest. States she got up and felt very lightheaded and sweaty. She took some Tums and it was not helping so she called EMS. EMS transmitted EKG which shows a sinus bradycardia. Patient states now her symptoms have abated and she seems back to normal. She notes a history of a prior stroke which left her with no residual deficits, hypertension and hyperlipidemia. Patient notes that she is on Plavix. She currently denying any pain or dyspnea. No nausea or vomiting. [facility] Medical History Abnormal electrocardiogram Essential hypertension GERD (gastroesophageal reflux disease) Hypothyroidism Mitral valve insufficiency Near syncope Nonrheumatic mitral (valve) prolapse Pure hypercholesterolemia Home Medications levothyroxine 75 mcg tablet 75 mcg PO DAILY 03/11/17 [History Last Taken 05/17/23] denosumab 60 mg/mL subcutaneous syringe (Prolia) 60 mg subcut [id number] 08/30/20 [History Last Taken 03/20/23] fexofenadine 180 mg tablet (Heidi Allergy) 180 mg PO DAILY PRN ALLERGIES 08/30/20 [History Last Taken 05/16/23] fluticasone propionate 50 mcg/actuation nasal spray,suspension (Flonase Allergy Relief) 1 spray intranasal DAILY PRN allergy symptoms 08/30/20 [History Last Taken Unknown] biotin 800 mcg tablet 800 mcg PO DAILY 09/01/20 [History Last Taken 05/16/23] calcium carbonate 600 mg-vitamin D3 12.5 mcg (500 unit) capsule (Calcium 600 with Vitamin D3) 1 cap PO DAILY 09/01/20 [History Last Taken 05/16/23] cholecalciferol (vitamin D3) 25 mcg (1,000 unit) capsule 25 mcg PO DAILY 09/01/20 [History Last Taken 05/16/23] multivitamin 1 tab PO DAILY 09/01/20 [History Last Taken 05/16/23] amlodipine 10 mg tablet 10 mg PO DAILY 05/17/23 [History Last Taken 05/16/23] levothyroxine 150 mcg tablet (Euthyrox) 150 mcg PO DAILY 05/17/23 [History Last Taken 05/15/23] lorazepam 0.5 mg tablet 0.5 mg PO DAILY 05/17/23 [History Last Taken Unknown] losartan 100 mg tablet 100 mg PO DAILY 05/17/23 [History Last Taken 05/16/23] montelukast 10 mg tablet 10 mg PO DAILY 05/17/23 [History Last Taken 05/16/23] montelukast 10 mg tablet (Singulair) 10 mg PO DAILY 05/17/23 [History Last Taken 05/16/23] omeprazole 40 mg capsule,delayed release 40 mg PO DAILY 05/17/23 [History Last Taken 05/17/23] sertraline 100 mg tablet 100 mg PO Q24H 05/17/23 [History Last Taken 05/16/23] acetaminophen 325 mg tablet 650 mg (2 x 325 mg) PO Q6H PRN PRN Pain 1-10 Or Fever >100.7 #0 tabs 05/19/23 [Rx Last Taken Unknown] aspirin 81 mg chewable tablet 81 mg PO BREAKFAST 30 days #0 tabs 05/19/23 [Rx Last Taken Unknown] melatonin 3 mg tablet 3 mg PO QHS PRN PRN Insomnia #0 tabs 05/19/23 [Rx Last Taken Unknown] atorvastatin 40 mg tablet 40 mg PO QHS #30 tabs 05/20/23 [Rx Last Taken Unknown] clopidogrel 75 mg tablet 75 mg PO DAILY #21 tabs 05/20/23 [Rx Last Taken Unknown] Allergy/AdvReac Type Severity Reaction Status Date / Time Sulfa (Sulfonamide Allergy Unknown Verified 09/06/21 11:06 Antibiotics) Family History Mother Heart disease Diabetes Hypertension Father Myocardial infarction CVA (cerebral vascular accident) Surgical History History of bilateral cataract extraction Social History Smoking Status: Never smoker alcohol intake: current details: occasional substance use type: does not use caffeine: Yes ROS ROS ED Constitutional Constitutional ED: Denies chills, fever(s) or weight loss Eyes Eyes: Denies change in vision or diplopia ENT ENT ED: Denies ear pain, rhinorrhea or sore throat Cardiovascular Cardiovascular: Reports chest pain; Denies orthopnea, palpitations or racing heartbeat Respiratory/Chest Respiratory/Chest: Denies cough, dyspnea or orthopnea Gastrointestinal Gastrointestinal: Reports nausea; Denies abdominal pain, diarrhea or vomiting Genitourinary Genitourinary ED: Denies dysuria, hematuria or urinary frequency Musculoskeletal Musculoskeletal: Denies arthralgias or myalgias Integumentary Denies abscess or rash Neurologic Neurologic: Denies headache(s) or weakness Psychiatric Psychiatric: Denies anxiety, depression, suicidal ideation or suicidal thoughts Endocrine Endocrinology: Denies polydipsia, polyphagia or polyuria Allergic/Immunologic Allergic/Immunologic ED: Denies mouth swelling, tongue swelling or urticaria EXAM Physical Exam Const Vital Signs: 07/16/23 02:39 07/16/23 02:38 07/16/23 03:38 Temperature 97.6 F L 97.6 F L Temperature Source Oral Oral Pulse Rate 55 L 54 L 56 L Respiratory Rate 18 18 16 Blood Pressure 152/76 H 147/77 H 149/71 H Blood Pressure Mean 101 100 97 Pulse Ox 98 97 94 Oxygen Delivery Method Room Air Room Air Room Air 07/16/23 04:00 07/16/23 03:46 07/16/23 04:00 Temperature Temperature Source Pulse Rate 60 56 L Respiratory Rate 20 H 23 H Blood Pressure 113/43 L 149/71 H 138/73 H Blood Pressure Mean 66 92 91 Pulse Ox 95 95 Oxygen Delivery Method Room Air 07/16/23 04:15 07/16/23 04:22 07/16/23 04:30 Temperature Temperature Source Pulse Rate 61 Respiratory Rate 11 L Blood Pressure 120/96 H 124/47 H Blood Pressure Mean 106 69 Pulse Ox 93 94 Oxygen Delivery Method 07/16/23 04:45 07/16/23 05:00 07/16/23 05:15 Temperature Temperature Source Pulse Rate 65 Respiratory Rate 16 Blood Pressure 113/43 L 120/62 125/57 H Blood Pressure Mean 65 78 78 Pulse Ox 93 93 93 Oxygen Delivery Method Room Air 07/16/23 05:30 07/16/23 05:45 07/16/23 05:47 Temperature Temperature Source Pulse Rate 64 Respiratory Rate 18 Blood Pressure 115/75 132/48 H Blood Pressure Mean 89 71 Pulse Ox 93 94 93 Oxygen Delivery Method Room Air 07/16/23 06:00 07/16/23 06:09 07/16/23 06:15 Temperature Temperature Source Pulse Rate Respiratory Rate Blood Pressure 88/61 L 111/76 105/87 H Blood Pressure Mean 70 83 94 Pulse Ox 94 93 93 Oxygen Delivery Method 07/16/23 06:30 07/16/23 07:10 07/16/23 06:31 Temperature 98.1 F Temperature Source Pulse Rate 67 Respiratory Rate 16 Blood Pressure 115/92 H 146/61 H Blood Pressure Mean 99 86 Pulse Ox 94 99 92 Oxygen Delivery Method 07/16/23 06:45 07/16/23 07:00 Temperature Temperature Source Pulse Rate Respiratory Rate Blood Pressure 130/62 H Blood Pressure Mean 83 Pulse Ox 93 93 Oxygen Delivery Method Positive well nourished and well developed General Appearance ED: well developed HEENT Reports normocephalic, head/scalp atraumatic and moist mucous membranes Eyes PERRL and EOMs intact bilaterally Neck no lymphadenopathy, supple and no JVD Resp normal respiratory effort and clear to auscultation bilaterally Cardio regular rate, regular rhythm and no murmurs Rate: bradycardia GI normal to inspection, nondistended, normoactive bowel sounds and non-tender Palpation: soft Back/Spine no CVA tenderness and normal ROM Extremity normal to inspection General Extremety ED: Negative for edema General Extremity: Negative for edema Neuro oriented x3 and CN's II-XII intact bilaterally Sensorium / Orientation: alert Motor Exam: strength 5/5 throughout Psych mental status grossly normal Mood & Affect: Negative for depressed or tearful Skin no rashes or lesions noted and no wounds Heart Score History: Slightly/Non-Suspicious ECG: Nonspecific Repolarization Age: >/= 65 years Risk Factors: 1 or 2 Risk Factors Troponin: </= Normal Limit Score: 4 MDM MDM MDM Narrative Medical decision making narrative: My independent interpretation of the chest x-ray is no acute process. EKG does not show any ischemic findings. She is asymptomatic. 2 sets of cardiac enzymes are normal. CBC with a hemoglobin 12.8 platelet count of 260. BMP with creatinine 0.78. Liver enzymes show slight elevation of AST and ALT. These appear new. Alk phos 103 with a normal bilirubin. Lipase 24. I performed a bedside ultrasound. I do not see any cholelithiasis or pericholecystic fluid. There is no tenderness over the gallbladder. At this point I think her symptoms were most likely GERD related. I did do not suspect pulmonary embolism or aortic dissection. Patient to be discharged home. Would recommend follow-up with primary care to complete the cardiac evaluation. History & Record Review Discussion w/independent historian: Patient and Significant other Lab Data Attestation: I reviewed the patient's lab results. Labs: Laboratory Results - last 24 hr 07/16/23 07/16/23 02:55 05:38 WBC 6.3 RBC 4.52 Hgb 12.8 Hct 40.7 MCV 90.0 MCH 28.3 MCHC 31.4 L RDW Std Deviation 45.6 H RDW Coeff of Vesna 13.8 Plt Count 260 MPV 10.1 Immature Gran % (Auto) 0.500 Neut % (Auto) 71.7 H Lymph % (Auto) 14.4 L [place] % (Auto) 8.0 Eos % (Auto) 4.9 Baso % (Auto) 0.5 Absolute Neuts (auto) 4.6 Absolute Lymphs (auto) 0.91 Nucleated RBC % 0 Sodium 144 Potassium 3.4 L Chloride 111 H Carbon Dioxide 27.0 Anion Gap 6 BUN 20 H Creatinine 0.78 Estim Creat Clear Calc 39.62 Est GFR (MDRD) Af Amer 91 Est GFR (MDRD) Non-Af 75 BUN/Creatinine Ratio 25.6 H Glucose 101 Calcium 9.1 Total Bilirubin 0.40 Direct Bilirubin 0.17 AST 91 H ALT 72 H Alkaline Phosphatase 103 Troponin I High Sens 9 8 Total Protein 7.0 Albumin 3.8 Globulin 3.2 Lipase 24 Radiography Diagnostic Testing: Clinical Impression(s) from Imaging Studies Chest X-Ray 07/16/23 02:43 IMPRESSION: Atherosclerotic disease and mild cardiomegaly Electronically Signed: Trino Piña MD at 4:39 EDT , EKG Initial EKG: Attestation: I personally reviewed and interpreted this EKG as follows: Interpretation: Sinus Rhythm Comments: Sinus bradycardia with right bundle branch block left anterior fascicular block. Ventricular rate of 51 bpm Prior EKG tracings: available for review Prior: Unchanged (06/06/2023) Discharge Plan Triage Chief Complaint: Chest Pain ED Provider: Lokesh Stanton Dx/Rx/DC Orders Clinical Impression: Elevation of levels of liver transaminase levels, GERD (gastroesophageal reflux disease), Chest pain Instructions: ED GERD (Adult) Prescriptions: No Action multivitamin Tablet 1 tab PO DAILY calcium carbonate-vitamin D3 [Calcium 600 with Vitamin D3] 600 mg(1,500mg) - 500 unit capsule 1 cap PO DAILY biotin 800 mcg tablet 800 mcg PO DAILY cholecalciferol (vitamin D3) 25 mcg (1,000 unit) capsule 25 mcg PO DAILY fexofenadine [Heidi Allergy] 180 mg tablet 180 mg PO DAILY PRN (Reason: ALLERGIES) fluticasone propionate [Flonase Allergy Relief] 50 mcg/actuation spray,suspension 1 spray intranasal DAILY PRN (Reason: allergy symptoms) Rx Instructions: administer into each nostril Prolia 60 mg/mL syringe 60 mg subcut [id number] Patient Comments: LAST INJECTION ABOUT TWO MONTHS AGO levothyroxine 75 MCG tablet 75 mcg PO DAILY Patient Comments: M,T,TH,F amlodipine 10 mg tablet 10 mg PO DAILY losartan 100 mg tablet 100 mg PO DAILY montelukast 10 mg tablet 10 mg PO DAILY sertraline 100 mg tablet 100 mg PO Q24H levothyroxine [Euthyrox] 150 mcg tablet 150 mcg PO DAILY Patient Comments: W,S,S omeprazole 40 mg capsule,delayed release(DR/EC) 40 mg PO DAILY Patient Comments: TAKE 1 CAPSULE BY MOUTH EVERY DAY montelukast [Singulair] 10 mg tablet 10 mg PO DAILY lorazepam 0.5 mg tablet 0.5 mg PO DAILY Patient Comments: TAKE 1 TABLET BY MOUTH DAILY NEEDED FOR ANXIETY melatonin 3 mg Tablet 3 mg PO QHS PRN PRN (Reason: Insomnia) Qty: 0 0RF aspirin 81 mg Tablet,Chewable 81 mg PO BREAKFAST 30 Days Qty: 0 0RF acetaminophen 325 mg Tablet 650 mg PO Q6H PRN PRN (Reason: Pain 1-10 Or Fever >100.7) Qty: 0 0RF atorvastatin 40 mg tablet 40 mg PO QHS Qty: 30 0RF clopidogrel 75 mg tablet 75 mg PO DAILY Qty: 21 0RF Primary Care Provider: Giovanna Ruggiero Referrals: Giovanna Ruggiero, [employer] [Primary Care Provider] - 1 Week Disposition Disposition: Home, Self Care Discharge Date/Time: 07/16/23 07:11
[2023-07-16] MEDS: Aspirin 81 MG TAB.CHEW 324 MG PO (03:04)
[2023-07-16 03:05] LABS: Absolute Lymphocyte Count 0.91 X10^3/uL (0.83-4.51); Absolute Neutrophil Count 4.6 X10^3/uL (2.0-7.7); Basophil# 0.03 X10^3/uL; Basophil% 0.5 % (0-1); Eosinophil# 0.31 X10^3/uL; Eosinophils% 4.9 % (0-5); Hematocrit 40.7 % (37-47); Hemoglobin 12.8 g/dL (12.0-15.0); Lymphocyte # 0.91 X10^3/ul (0.83-4.51); Lymphocyte % 14.4 % (19-41); Mean Corp Hgb Conc 31.4 g/dL (32-36); Mean Corpuscular Hgb 28.3 pg (27.0-32.0); Mean Platelet Vol. 10.1 fl (6.2-12.0); Monocyte# 0.51 X10^3/uL; NRBC Flagged by Analyzer 0 % (0-5); Neutrophil # 4.55 X10^3/uL (2.7-7.7); Neutrophil % 71.7 % (47-70); Platelet Count 260 K/mm3 (150-450); RBC Distribution Width CV 13.8 % (11.6-14.6); RBC Distribution Width SD 45.6 fl (35.1-43.9); Red Blood Count 4.52 M/mm3 (4.2-5.4); White Blood Count 6.3 K/mm3 (4.4-11.0)
[2023-07-16 03:30] LABS: Anion Gap 6 (5-15); BUN 20 mg/dL (7-18); BUN/Creat Ratio 25.6 RATIO (10-20); Calcium,Total 9.1 mg/dL (8.5-10.1); Chloride 111 mmol/L (98-107); Creatinine, Serum 0.78 mg/dL (0.55-1.02); EST Glomerular Filtration Rate 75 mL/min (>60); Est Glom Filt Rate - Afr Amer 91 mL/min (>60); Estimated Creatinine Clearance 39.62 ml/min; Glucose 101 mg/dL (74-106); Lipase 24 U/L (13-75); Potassium 3.4 mmol/L (3.5-5.1); Sodium Level 144 mmol/L (136-145); Troponin-I HS (w/2H Reflex) 9 pg/mL (3.0-54.0)
[2023-07-16 03:35] LABS: AST(SGOT) 91 U/L (15-37); Alanine Aminotransfer ALT/SGPT 72 U/L (13-56); Albumin, Serum 3.8 g/dL (3.2-5.0); Alkaline Phosphatase 103 U/L (45-117); Bilirubin, Direct 0.17 mg/dL (0.00-0.30); Globulin 3.2 g/dL (2.2-4.2)
[2023-07-16 05:03] LABS: Reflex Troponin-HS? (from REC) Y
[2023-07-16 06:21] LABS: Troponin-I HS 8 pg/mL (3.0-54.0)
== END 2023-07-16 07:11 | disposition home or self-care (01) ==
PROVIDERS: Emergency Provider Emergency Medicine; PCP Nurse Practitioner Family; Visit Provider Emergency Medicine
DX: R74.01 Elevation of levels of liver transaminase levels (principal); R07.9 Chest pain, unspecified; R00.1 Bradycardia, unspecified; I10 Essential (primary) hypertension; E78.00 Pure hypercholesterolemia, unspecified; K21.9 Gastro-esophageal reflux disease without esophagitis; Z86.73 Personal history of transient ischemic attack (TIA), and cerebral infarction without residual deficits; Z79.02 Long term (current) use of antithrombotics/antiplatelets
CPT/HCPCS: 71045; 80048; 80076; 83690; 84484; 85025; 93005; 99285

== ENCOUNTER → 2024-02-12 | Outpatient (CLI) | payer MEDICARE, SELFPAY | END | disposition home or self-care (01) | PROVIDERS: PCP Nurse Practitioner Family; Referring Provider Otolaryngology; Visit Provider Otolaryngology | DX: R13.10 Dysphagia, unspecified (principal); K21.9 Gastro-esophageal reflux disease without esophagitis | CPT/HCPCS: 74221 ==

== ENCOUNTER 2024-09-15 16:11 | Emergency (ER) | payer MEDICARE, SELFPAY ==
[2024-09-15] VITALS (7 sets, daily range): BP systolic 121–170; BP diastolic 72–89; PULSE 56–64; RESP 16–17; TEMP 36.6–37.1; O2SAT 97–99; BMI 21.6
--- NOTE | 2024-09-15 16:24 | EKG12_ITS ---
Test Reason : CP Blood Pressure : */* mmHG Vent. Rate : 55 BPM Atrial Rate : 55 BPM P-R Int : 192 ms QRS Dur : 132 ms QT Int : 498 ms P-R-T Axes : 43 -67 18 degrees QTcB Int : 476 ms Sinus bradycardia Right bundle branch block Left anterior fascicular block Bifascicular block Minimal voltage criteria for LVH, may be normal variant ( R in aVL ) Abnormal ECG Confirmed by Edenilson Harding ([id number]), society editor LAYTON VERMA ([id number]) on 09/17/2024 6:47:48 AM Referred By: Confirmed By: Edenilson Harding
--- NOTE | 2024-09-15 16:39 | ED.VIS.CHEST ---
HPI History of Present Illness Chief Complaint: Chest Pain Detail of Chief Complaint: Midsternal burning pressure sensation Informant: patient Onset/Context/Timing Onset: Today (At 1430 after walking for 15 minutes) Activity at onset: sudden Timing: Continuous Quality: Positive for - (Pressure burning sensation mid sternum) Location: Substernal Current Severity: Mild Maximum Severity: Severe Worsened By: Exertion Relieved By: Nothing Associated Symptoms: Positive for Dyspnea and - (Patient denied radiation of the discomfort to her extremities, neck, jaw or back); Negative for Nausea, Vomiting, Diaphoresis, Cough, Fever, Lightheadedness, Acid Reflux or Palpitations Narrative Narrative: Patient is an 84-year-old woman. She has history of hypertension and prior stroke. She was under the care of Dr. Robertson. She is presently seeing Dr. Ga Harding. She is scheduled for her first visit with Dr. Harding. She was out walking. After walking 15 minutes she developed a pressure burning substernal/midsternal discomfort with dyspnea. She had no other associated symptoms. She denied radiation of the discomfort. She does have history of GERD. She states she has never had this with her GERD. She denies black or maroon stool. She denies symptoms of claudication. She denies recent chest discomfort or shortness of breath with activity. She denies orthopnea or PND. She does have history of TIA/CVA. She also has history of hypertension and is on a cholesterol med. Recent Illness/Hospitalization: No CVD Risk Factors: Positive for Hypertension and Hypercholesterolemia PE Risk Factors: Negative for Recent Travel/Surgery, Recent Immobilization, Prior DVT or PE, Cancer or OCP + Smoking + >/=35 TAD Risk Factors: Positive for Hypertension; Negative for Marfan's Syndrome or Family History [facility] Medical History (Updated 09/15/24 @ 20:[address] Negro Flores MD) Stroke Mitral valve insufficiency Abnormal electrocardiogram Near syncope GERD (gastroesophageal reflux disease) Nonrheumatic mitral (valve) prolapse Hypothyroidism Pure hypercholesterolemia Essential hypertension Home Medications ?Medication ?Instructions ?Recorded ?Last Taken ?Type levothyroxine 75 mcg tablet 75 mcg PO DAILY 03/11/17 09/15/24 History fluticasone propionate 50 1 spray intranasal DAILY PRN 08/30/20 Unknown History mcg/actuation nasal allergy symptoms spray,suspension (Flonase Allergy Relief) biotin 800 mcg tablet 800 mcg PO DAILY 09/01/20 09/15/24 History cholecalciferol (vitamin D3) 25 25 mcg PO DAILY 09/01/20 09/15/24 History mcg (1,000 unit) capsule multivitamin 1 tab PO DAILY 09/01/20 09/15/24 History amlodipine 10 mg tablet 10 mg PO DAILY 05/17/23 09/14/24 History losartan 100 mg tablet 100 mg PO DAILY 05/17/23 09/14/24 History montelukast 10 mg tablet 10 mg PO DAILY 05/17/23 09/15/24 History (Singulair) omeprazole 40 mg capsule,delayed 40 mg PO DAILY 05/17/23 09/15/24 History release sertraline 100 mg tablet 100 mg PO Q24H 05/17/23 09/14/24 History acetaminophen 325 mg tablet 650 mg (2 x 325 mg) PO Q6H PRN PRN 05/19/23 09/14/24 Rx Pain 1-10 Or Fever >100.7 #0 tabs aspirin 81 mg chewable tablet 81 mg PO BREAKFAST 30 days #0 tabs 05/19/23 09/15/24 Rx atorvastatin 40 mg tablet 40 mg PO QHS #30 tabs 05/20/23 09/14/24 Rx clopidogrel 75 mg tablet 75 mg PO DAILY #21 tabs 05/20/23 09/15/24 Rx lorazepam 0.5 mg tablet (Ativan) 0.5 mg PO DAILY PRN anxiety 08/01/23 Unknown History Allergy/AdvReac Type Severity Reaction Status Date / Time Sulfa (Sulfonamide Allergy Unknown Verified 09/15/24 16:12 Antibiotics) Family History Mother Heart disease Diabetes Hypertension Father Myocardial infarction CVA (cerebral vascular accident) Surgical History History of kyphoplasty History of bilateral cataract extraction Social History Smoking Status: Never smoker alcohol intake: current details: occasional substance use type: does not use caffeine: Yes ROS ROS ED Constitutional Constitutional ED: Denies chills, fever(s), subjective or sweats Eyes Eyes: Reports none ENT ENT ED: Denies ear pain or rhinorrhea Cardiovascular Cardiovascular: Reports as per HPI; Denies orthopnea or paroxysmal nocturnal dyspnea Respiratory/Chest Respiratory/Chest: Reports dyspnea; Denies cough, dyspnea on exertion, orthopnea or paroxysmal nocturnal dyspnea Gastrointestinal Gastrointestinal: Denies abdominal pain, diarrhea, melena, nausea, vomiting or other Musculoskeletal Musculoskeletal: Denies back pain or neck pain Integumentary Denies rash Neurologic Neurologic: Denies paresthesias or weakness Hematologic/Lymphatic Hematologic/Lymphatic: Denies easy bleeding or easy bruising EXAM Physical Exam Const Vital Signs: 09/15/24 16:11 09/15/24 16:24 09/15/24 16:50 Temperature 98.7 F Temperature Source Oral Pulse Rate 57 L 64 Respiratory Rate 16 Blood Pressure 121/89 H 170/78 H Blood Pressure Mean 99 Pulse Ox 97 99 Oxygen Delivery Method Room Air Room Air 09/15/24 17:11 09/15/24 18:11 09/15/24 19:00 Temperature Temperature Source Pulse Rate 56 L 57 L 56 L Respiratory Rate 16 17 Blood Pressure Blood Pressure Mean Pulse Ox 97 97 Oxygen Delivery Method Room Air Positive well nourished and obese General Appearance ED: NAD; Negative for pallor Nutritional Appearance: obese HEENT Reports moist mucous membranes HEENT Narrative: Head is normocephalic and atraumatic. Ears are normal. Eyes PERRL and EOMs intact bilaterally General Eye ED: Negative for pale conjunctiva or scleral icterus Neck no lymphadenopathy, supple and no JVD Chest Wall inspection of chest normal and palpation of chest normal Resp normal respiratory effort and No clear to auscultation bilaterally Auscultation: rales bilateral base Cardio regular rate, regular rhythm, S1 normal heart sound, S2 normal heart sound and no murmurs GI normal to inspection, nondistended, normoactive bowel sounds, soft to palpation, non-tender and no masses; Negative for hepatosplenomegaly Back/Spine no CVA tenderness and no thoracic nor lumbar tenderness Extremity normal to inspection Extremity Narrative: There is no asymmetry, swelling, discoloration, leg vein distention, palpable cords or tenderness along the distribution of the deep venous system. Neuro oriented x3 and CN's II-XII intact bilaterally Sensorium / Orientation: awake and alert Motor Exam: strength 5/5 throughout Psych mental status grossly normal Skin no rashes or lesions noted and no wounds General Skin Exam: Negative for jaundice or pallor MDM MDM MDM Narrative Medical decision making narrative: Differential diagnosis is exertional angina, non-ST elevation [place], noncardiac causes would be GERD, esophageal spasm, chest pain of unknown etiology. Workup included EKG, high-sensitivity troponin and 2-hour troponin, chest x-ray and appropriate labs to assess renal function, H&H and glucose. Chest x-ray was obtained to determine if heart size and if there is any evidence of failure or any other pulmonary abnormality. History & Record Review Additional record(s) reviewed:: Prior inpatient record (Hospitalized May 2023 for hypertension. She also was diagnosed with stroke and was the primary reason for her admission. Hypertension was a result of the stroke.) and Prior ED visit (Patient was seen July 15 for chest pain. Note authored by Dr. Zapata was reviewed. Document from outside facility was reviewed for DVT on July 14.) Lab Data Attestation: I reviewed the patient's lab results. Lab results narrative: CBC is unremarkable. BMP is unremarkable. The BUN/creatinine ratio is elevated 25-1. First troponin was normal at 11. Second troponin is normal at 14 with a delta of 3 which is normal. With 2 normal high-sensitivity troponins that are negative with a negative delta as she would be discharged home to follow-up with her doctor for outpatient workup. Labs: Laboratory Results - last 24 hr 09/15/24 09/15/24 16:30 18:29 WBC 5.1 RBC 4.48 Hgb 12.7 Hct 39.6 MCV 88.4 MCH 28.3 MCHC 32.1 RDW Std Deviation 44.4 H RDW Coeff of Vesna 13.8 Plt Count 284 MPV 10.1 Immature Gran % (Auto) 0.200 Neut % (Auto) 64.7 Lymph % (Auto) 24.0 [place] % (Auto) 8.3 Eos % (Auto) 2.6 Baso % (Auto) 0.2 Absolute Neuts (auto) 3.3 Absolute Lymphs (auto) 1.21 Nucleated RBC % 0 Sodium 137 Potassium 3.8 Chloride 101 Carbon Dioxide 22.8 Anion Gap 13 BUN 18 Creatinine 0.71 Estim Creat Clear Calc 38.94 L Est GFR (MDRD) Non-Af 84 BUN/Creatinine Ratio 25.2 H Glucose 91 Calcium 9.5 Troponin T High Sens 11 Troponin T Hi Sens 2 Hr 14 Radiography Chest X-Ray - ED: 1 View and Read by ED Physician (Single view portable chest x-ray reveals normal cardiac silhouette and size. Lung parenchyma is normal. There is no evidence of infiltrate, effusion or pneumothorax. Mediastinum is normal.) Diagnostic Testing: Clinical Impression(s) from Imaging Studies Chest X-Ray 09/15/24 16:50 IMPRESSION: No acute cardiopulmonary abnormalities. Similar cardiomegaly. Chronic right rib fractures. Reading Location: [place] [id number] EKG Initial EKG: Attestation: I personally reviewed and interpreted this EKG as follows: Interpretation: Sinus Bradycardia (Rate is 55. There is a right bundle branch block and left anterior fascicular block. This is unchanged from prior. VA interval is 119 ms. QRS duration 132 ms. QT duration 498 ms. Patient does have evidence of LVH.) Prior: Unchanged Discharge Plan Triage Chief Complaint: Chest Pain ED Provider: Negro Flores Dx/Rx/DC Orders Clinical Impression: Chest pressure, History of CVA (cerebrovascular accident), Dyspnea, Bradycardia, sinus, Hypertension, Antiplatelet or antithrombotic long-term use, History of hypothyroidism Instructions: ED Chest Pain, Noncardiac, ED Chest Pain, Uncertain Cause Prescriptions: No Action multivitamin Tablet 1 tab PO DAILY biotin 800 mcg tablet 800 mcg PO DAILY cholecalciferol (vitamin D3) 25 mcg (1,000 unit) capsule 25 mcg PO DAILY fluticasone propionate [Flonase Allergy Relief] 50 mcg/actuation spray,suspension 1 spray intranasal DAILY PRN (Reason: allergy symptoms) Rx Instructions: administer into each nostril lorazepam [Ativan] 0.5 mg tablet 0.5 mg PO DAILY PRN (Reason: anxiety) levothyroxine 75 MCG tablet 75 mcg PO DAILY Rx Instructions: PT STATES SHE TAKES 1T QD EXCEPT SATURDAYS SHE TAKES 2 amlodipine 10 mg tablet 10 mg PO DAILY losartan 100 mg tablet 100 mg PO DAILY sertraline 100 mg tablet 100 mg PO Q24H omeprazole 40 mg capsule,delayed release(DR/EC) 40 mg PO DAILY Patient Comments: TAKE 1 CAPSULE BY MOUTH EVERY DAY montelukast [Singulair] 10 mg tablet 10 mg PO DAILY aspirin 81 mg Tablet,Chewable 81 mg PO BREAKFAST 30 Days Qty: 0 0RF acetaminophen 325 mg Tablet 650 mg PO Q6H PRN PRN (Reason: Pain 1-10 Or Fever >100.7) Qty: 0 0RF atorvastatin 40 mg tablet 40 mg PO QHS Qty: 30 0RF clopidogrel 75 mg tablet 75 mg PO DAILY Qty: 21 0RF Primary Care Provider: Giovanna Ruggiero Referrals: Giovanna Ruggiero, [employer] [Primary Care Provider] - 3-5 Days Print Language: Citizen Of [place] Disposition Disposition: Home, Self Care
[2024-09-15] MEDS: Nitroglycerin SL (ED/IMG/CATH) 0.4 MG TABLET SL (16:50)
--- NOTE | 2024-09-15 16:50 | RAD_ITS ---
PROCEDURE: CHEST 1 VIEW (PORTABLE) 09/15/2024 REASON FOR EXAM: CHEST PAIN TECHNIQUE: Frontal view of the chest. COMPARISON: 07/16/2023. FINDINGS: The heart is similarly enlarged. The lungs are clear. Chronic right rib fractures. Prior midthoracic vertebroplasty. RAD/Chest 1 View (Portable) IMPRESSION: No acute cardiopulmonary abnormalities. Similar cardiomegaly. Chronic right rib fractures. Reading Location: [id number]
[2024-09-15] MEDS: Aspirin 81 MG TAB.CHEW 324 MG PO (16:51)
[2024-09-15 17:10] LABS: Absolute Lymphocyte Count 1.21 X10^3/uL (0.83-4.51); Absolute Neutrophil Count 3.3 X10^3/uL (2.0-7.7); Basophil# 0.01 X10^3/uL; Basophil% 0.2 % (0-1); Eosinophil# 0.13 X10^3/uL; Eosinophils% 2.6 % (0-5); Hematocrit 39.6 % (37-47); Hemoglobin 12.7 g/dL (12.0-15.0); Lymphocyte # 1.21 X10^3/ul (0.83-4.51); Mean Corp Hgb Conc 32.1 g/dL (32-36); Mean Corpuscular Hgb 28.3 pg (27.0-32.0); Mean Corpuscular Volume 88.4 fL (81-99); Mean Platelet Vol. 10.1 fl (6.2-12.0); Monocyte# 0.42 X10^3/uL; Monocyte% 8.3 % (0-10); NRBC Flagged by Analyzer 0 % (0-5); Neutrophil # 3.27 X10^3/uL (2.7-7.7); Neutrophil % 64.7 % (47-70); Platelet Count 284 K/mm3 (150-450); RBC Distribution Width CV 13.8 % (11.6-14.6); RBC Distribution Width SD 44.4 fl (35.1-43.9); Red Blood Count 4.48 M/mm3 (4.2-5.4); White Blood Count 5.1 K/mm3 (4.4-11.0)
[2024-09-15 17:28] LABS: Anion Gap 13 (5-15); BUN 18 mg/dL (4-19); BUN/Creat Ratio 25.2 RATIO (10-20); Calcium,Total 9.5 mg/dL (7.6-11.0); Carbon Dioxide 22.8 mmol/L (21.0-32.0); Chloride 101 mmol/L (98-108); Creatinine, Serum 0.71 mg/dL (0.70-1.20); EST Glomerular Filtration Rate 84 (>60); Estimated Creatinine Clearance 38.94 ml/min (50-250); Glucose 91 mg/dL (70-99); Potassium 3.8 mmol/L (3.3-5.1); Sodium Level 137 mmol/L (133-145); Troponin T High Sensitivity 11 ng/L (<=14)
[2024-09-15 19:52] LABS: Troponin T High Sens 2 HR 14 ng/L (<=14)
== END 2024-09-15 20:13 | disposition home or self-care (01) ==
PROVIDERS: Emergency Provider Emergency Medicine; PCP Nurse Practitioner Family; Visit Provider Emergency Medicine
DX: R07.89 Other chest pain (principal); R00.1 Bradycardia, unspecified; R06.00 Dyspnea, unspecified; I10 Essential (primary) hypertension; E78.00 Pure hypercholesterolemia, unspecified; E03.9 Hypothyroidism, unspecified; K21.9 Gastro-esophageal reflux disease without esophagitis; Z79.82 Long term (current) use of aspirin; Z79.02 Long term (current) use of antithrombotics/antiplatelets; Z79.890 Hormone replacement therapy; Z79.899 Other long term (current) drug therapy; Z86.73 Personal history of transient ischemic attack (TIA), and cerebral infarction without residual deficits
CPT/HCPCS: 71045; 80048; 84484; 85025; 93005; 99285; A4216

== ENCOUNTER 2024-11-27 21:59 | Emergency (ER) | payer MEDICARE, SELFPAY ==
[2024-11-27 22:00] VITALS: BP 141/50; PULSE 58; RESP 16; TEMP 36.6; O2SAT 97; BMI 22.3
--- NOTE | 2024-11-27 22:55 | CT_ITS ---
PROCEDURE: STROKE CTA HEAD AND NECK W/CON 11/27/2024 REASON FOR EXAM: SUDDEN ONSET VERTIGO TECHNIQUE: STROKE CTA HEAD AND NECK W/CON Multiplanar Sagittal and Coronal images were obtained. CONTRAST: Isovue-300 70 VOLUME: 100 mL One or more dose reduction techniques were used (e.g., Automated exposure control, adjustment of the mA and/or kV according to patient size, use of iterative reconstruction technique). RADIATION DOSE SUMMARY: CTDlvol: 13.7 mGy DLP: 542 mGycm COMPARISON: CT scan of the head on 05/17/2023. 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 Normal bilateral petrous carotid arteries. Mild atheromatous plaques of the right cavernous carotid artery with a normal supraclinoid bifurcation. Mild atheromatous plaques of the left cavernous carotid artery with a normal supraclinoid bifurcation. Normal right A1 segments of the anterior cerebral artery. Normal left A1 segments of the anterior cerebral artery. Normal intact anterior communicating artery (ACOM). Normal bilateral A2 segments of the anterior cerebral arteries. Normal right M1 and M2 segments of the middle cerebral arteries, with a normal M1 bifurcation. Normal left M1 and M2 segments of the middle cerebral arteries, with a normal M1 bifurcation. Normal right posterior communicating artery (PCOM). Normal left posterior communicating artery (PCOM). Normal bilateral vertebral arteries. Normal basilar artery with a normal basilar bifurcation. The visualized bilateral superior cerebellar (SCA) arteries are normal. Normal bilateral P1, P2 and visualized P3 segments of the posterior cerebral arteries. There is no major vessel occlusion or hemodynamically significant stenosis. There is no demonstrated acute abnormality of the visualized brain. Technique: Axial CT angiographic images of the neck. Reformatted coronal and sagittal images. 3D, MIP images. Reconstructed images were reviewed on a different workstation by radiologist. RIGHT CAROTID ARTERIES: Normal right common carotid artery (CCA). 20% stenosis of the right common carotid bulb. 20% stenosis of the origin of the right internal carotid (ICA) artery without a hemodynamically significant stenosis. Normal visualized cervical portion of the right internal carotid artery. Normal origin of the right external carotid artery (ECA). LEFT CAROTID ARTERIES: Normal left common carotid artery (CCA). Normal left common carotid bulb. Normal origin of the left internal carotid (ICA) artery without a hemodynamically significant stenosis. Normal visualized cervical portion of the left internal carotid artery. Normal origin of the left external carotid artery (ECA). VERTEBRAL ARTERIES: Normal bilateral vertebral artery without a hemodynamically significant stenosis. CT/STROKE CTA Head AND Neck W/Con IMPRESSION: Suspected 3.4 mm uncomplicated aneurysm arising from the supraclinoid segment o f the right internal carotid artery. No evidence of acute arterial occlusion or high-grade stenosis. Reading Location: [facility]
--- NOTE | 2024-11-27 22:55 | EKG12_ITS ---
Test Reason : DYSRHYTHMIA Blood Pressure : */* mmHG Vent. Rate : 59 BPM Atrial Rate : 59 BPM P-R Int : 208 ms QRS Dur : 142 ms QT Int : 472 ms P-R-T Axes : 48 -64 40 degrees QTcB Int : 467 ms Sinus bradycardia Right bundle branch block Left anterior fascicular block Bifascicular block Minimal voltage criteria for LVH, may be normal variant ( R in aVL ) Abnormal ECG Confirmed by FLORENCIO FLORES, MYAH ([id number]), film editor supervisor JENNIFER CASEY ([id number]) on 11/30/2024 7:35:55 AM Referred By: Confirmed By: MYAH MATIAS MD
[2024-11-27 23:07] LABS: Hematocrit 37.2 % (37-47); Hemoglobin 11.8 g/dL (12.0-15.0); Immature Granulocytes Count 0.020 X10^3/uL (0.0-0.0); Mean Corp Hgb Conc 31.7 g/dL (32-36); Mean Corpuscular Volume 90.3 fL (81-99); Mean Platelet Vol. 10.3 fl (6.2-12.0); NRBC Flagged by Analyzer 0 % (0-5); Platelet Count 276 K/mm3 (150-450); RBC Distribution Width CV 14.4 % (11.6-14.6); RBC Distribution Width SD 47.6 fl (35.1-43.9); Red Blood Count 4.12 M/mm3 (4.2-5.4); White Blood Count 6.9 K/mm3 (4.4-11.0)
--- NOTE | 2024-11-27 23:21 | EX.ED.DYSGE1 ---
HPI History of Present Illness Chief Complaint: Dizziness Informant: patient Narrative Narrative: Patient is an 84-year-old female with history of stroke and DVT (not on any anticoagulation) as well as hypothyroidism, hypertension and hyperlipidemia presenting for sudden onset of dizziness. Patient states started approximately 30 minutes prior to arrival to the ER. She was watching TV and got up to turn the air down before going to bed. She suddenly felt dizzy and off balance. She states she feels like she been on a boat. She denies any blurry vision, numbness or tingling. Is not drinking tonight. Is never had this before and denies any history of vertigo. States it does not feel like lightheadedness or she is going to pass out. Has had some mild nausea but no vomiting reported. Came in for further evaluation. No other complaints or concerns at this time. Nuys any ringing or ears. Denies any recent congestion or URI symptoms. [facility] Medical History Pure hypercholesterolemia Stroke Mitral valve insufficiency Abnormal electrocardiogram Near syncope GERD (gastroesophageal reflux disease) Nonrheumatic mitral (valve) prolapse Hypothyroidism Essential hypertension Home Medications ?Medication ?Instructions ?Recorded ?Last Taken ?Type levothyroxine 75 mcg tablet 75 mcg PO DAILY 03/11/17 09/15/24 History fluticasone propionate 50 1 spray intranasal DAILY PRN 08/30/20 Unknown History mcg/actuation nasal allergy symptoms spray,suspension (Flonase Allergy Relief) biotin 800 mcg tablet 800 mcg PO DAILY 09/01/20 09/15/24 History cholecalciferol (vitamin D3) 25 50 mcg PO DAILY 09/01/20 09/15/24 History mcg (1,000 unit) capsule multivitamin 1 tab PO DAILY 09/01/20 09/15/24 History amlodipine 10 mg tablet 10 mg PO DAILY 05/17/23 09/14/24 History losartan 100 mg tablet 100 mg PO DAILY 05/17/23 09/14/24 History montelukast 10 mg tablet 10 mg PO DAILY 05/17/23 09/15/24 History (Singulair) omeprazole 40 mg capsule,delayed 40 mg PO DAILY 05/17/23 09/15/24 History release sertraline 100 mg tablet 100 mg PO Q24H 05/17/23 09/14/24 History acetaminophen 325 mg tablet 650 mg (2 x 325 mg) PO Q6H PRN PRN 05/19/23 09/14/24 Rx Pain 1-10 Or Fever >100.7 #0 tabs aspirin 81 mg chewable tablet 81 mg PO BREAKFAST 30 days #0 tabs 05/19/23 09/15/24 Rx atorvastatin 40 mg tablet 40 mg PO QHS #30 tabs 05/20/23 09/14/24 Rx levothyroxine 75 mcg tablet 150 mcg PO QWEEK 11/27/24 Unknown History (Levo-T) pyridoxine (vitamin B6) 100 mg 100 mg PO DAILY 11/27/24 Unknown History tablet (Vitamin B-6) meclizine 12.5 mg tablet 12.5 mg PO Q6H PRN PRN dizziness 11/28/24 Unknown Rx #20 tabs Allergy/AdvReac Type Severity Reaction Status Date / Time Sulfa (Sulfonamide Allergy Unknown Verified 09/17/24 13:41 Antibiotics) Family History Mother Heart disease Diabetes Hypertension Father Myocardial infarction CVA (cerebral vascular accident) Surgical History History of kyphoplasty History of bilateral cataract extraction Social History Smoking Status: Never smoker alcohol intake: current details: occasional substance use type: does not use caffeine: Yes ROS ROS ED Constitutional Constitutional ED: Denies chills or fever(s) Eyes Eyes: Denies blurry vision, change in vision or diplopia ENT ENT ED: Denies rhinorrhea or sore throat Cardiovascular Cardiovascular: Denies chest pain Respiratory/Chest Respiratory/Chest: Denies cough or dyspnea Gastrointestinal Gastrointestinal: Reports nausea; Denies abdominal pain or vomiting Musculoskeletal Musculoskeletal: Denies arthralgias or myalgias Neurologic Neurologic: Reports other Details: Dizziness/vertigo ; Denies headache(s), paresthesias or weakness Psychiatric Psychiatric: Denies anxiety Hematologic/Lymphatic Hematologic/Lymphatic: Denies easy bleeding or easy bruising EXAM Physical Exam Const Vital Signs: 11/27/24 22:00 11/28/24 00:01 11/28/24 02:00 Temperature 98 F Temperature Source Oral Pulse Rate 58 L 56 L 65 Respiratory Rate 16 17 18 Blood Pressure 141/50 H 155/86 H 127/52 H Blood Pressure Mean 80 109 77 Pulse Ox 97 95 98 Oxygen Delivery Method Room Air Room Air 11/28/24 02:04 Temperature 98 F Temperature Source Pulse Rate 65 Respiratory Rate 18 Blood Pressure 127/52 H Blood Pressure Mean 77 Pulse Ox 98 Oxygen Delivery Method Positive well nourished and well developed General Appearance ED: well developed and NAD HEENT Reports TM's clear and moist mucous membranes Tympanic Membrane ED: Yes TM's clear Eyes PERRL and EOMs intact bilaterally Eyes Narrative: No nystagmus on exam. No reproduction of symptoms or visualized nystagmus with [place]-Hallpike maneuver. Neck supple and no JVD Chest Wall inspection of chest normal and palpation of chest normal Resp normal respiratory effort and clear to auscultation bilaterally Cardio regular rate, regular rhythm and no murmurs GI normal to inspection, nondistended, normoactive bowel sounds and non-tender Extremity normal to inspection Extremity Narrative: 2+ radial and DP pulses present General Extremety ED: Negative for edema or tenderness General Extremity: Negative for edema Neuro oriented x3, CN's II-XII intact bilaterally and no sensory deficits noted Neuro Narrative: Normal coordination. No truncal ataxia. Normal [id number] and [id number]. NIH=0 Sensorium / Orientation: alert Motor Exam: strength 5/5 throughout; Negative for general weakness Psych mental status grossly normal Skin no rashes or lesions noted and no wounds MDM MDM MDM Narrative Medical decision making narrative: Patient evaluated for sudden onset of dizziness. She appears nontoxic in no acute distress. Nystagmus on exam but her symptoms sound more consistent with vertigo. Differential includes peripheral vertigo, BPPV, labyrinthitis, central vertigo, electrolyte derangement intracranial hemorrhage as well as posterior circulation deficit. Unable to fully reproduce symptoms with [place]-Hallpike or visualize nystagmus. Because of this will obtain CTA of the head and neck as well as workup. As her NIH is 0 and she does not have debilitating symptoms stroke alert is not called. Patient given meclizine in the ER. Workup shows a mild anemia the hemoglobin 11.8 which is near her baseline. EKG does not show any acute ischemic changes. She is not have any chest pain. Normal coags. BMP largely normal. Initial high-sensitivity opponent is 12 and on repeat is 17. Symptoms improved while in the emergency room and she is not having any chest pain or anginal equivalents. Her delta is less than 6 I do not think she requires further cardiac workup. Urinalysis does show 10-25 white blood cells with only rare bacteria but no nitrates. Will send for culture but as she is not having symptoms will not treat at this time. CTA of the head and neck does not show any acute parenchymal disease or acute process. There is a suspected 3.4 mm uncomplicated aneurysm arising from the supraclinoid segment of the right ICA. This is discussed with neurosurgery at [facility], Dr. Yeh, who reviews the images. She does not think any intervention is indicated for this aneurysm as it is quite small and does not think anatomically it is associated with her presentation today. On repeat evaluation patient states she is feeling better. She ambulates with a steady gait. She is offered admission and encouraged because of her history of stroke and her vertigo without nystagmus and negative [place]-Hallpike. She states that she is feeling better and prefer to go home. She is counseled that we could be missing a small stroke. She verbalized understanding of this as well as her daughter. She is encouraged to return should she have any progression of her symptoms or acute neurologic symptoms. Discussed acute vision change, weakness, slurred speech or poor coordination as reasons to return. She states she has a follow-up with her primary care doctor in less than 2 weeks and can discuss outpatient monitoring at that time. I will be given a prescription for meclizine. Discharged home in stable condition. Lab Data Attestation: I reviewed the patient's lab results. Labs: Laboratory Results - last 24 hr 11/27/24 11/27/24 11/28/24 22:10 23:40 00:48 WBC 6.9 RBC 4.12 L Hgb 11.8 L Hct 37.2 MCV 90.3 MCH 28.6 MCHC 31.7 L RDW Std Deviation 47.6 H RDW Coeff of [place] 14.4 Plt Count 276 MPV 10.3 Immature Gran % (Auto) 0.300 Neut % (Auto) 61.3 Lymph % (Auto) 24.2 [place] % (Auto) 9.7 Eos % (Auto) 4.2 Baso % (Auto) 0.3 Absolute Neuts (auto) 4.3 Absolute Lymphs (auto) 1.68 Nucleated RBC % 0 PT 12.2 INR 0.9 APTT 24.1 Sodium 140 Potassium 4.2 Chloride 103 Carbon Dioxide 24.3 Anion Gap 13 BUN 21 H Creatinine 0.73 Estim Creat Clear Calc 38.94 L Est GFR (MDRD) Non-Af 82 BUN/Creatinine Ratio 28.7 H Glucose 96 Calcium 9.4 Troponin T High Sens 12 D Troponin T Hi Sens 2 Hr 17 H Urine Color Straw Urine Clarity Clear Urine pH 6.5 Ur Specific [place] 1.010 Urine Protein 15 H Urine Glucose (UA) Normal Urine Ketones Negative Urine Occult Blood 25 H Urine Nitrite Negative Urine Bilirubin Negative Urine Urobilinogen Normal Ur Leukocyte Esterase 100 H Urine RBC 0 SEEN Urine WBC 10-25 SEEN Ur Squamous Epith Cells 0-5 SEEN Urine Bacteria RARE Urine Mucus 0 SEEN Radiography Diagnostic Testing: Clinical Impression(s) from Imaging Studies Head/Neck CTA 11/27/24 22:55 IMPRESSION: 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 No evidence of acute arterial occlusion or high-grade stenosis. Reading Location: [place] [address] Rhythm Strip Rhythm Strip: Sinus Rhythm Rate: 59 Ectopy: None EKG Initial EKG: Attestation: I personally reviewed and interpreted this EKG as follows: Interpretation: Sinus Bradycardia Comments: Sinus bradycardia rate of 59 bpm Normal axis Bifascicular block with left anterior fascicular block and right bundle branch block Minimal voltage criteria for LVH Normal ST segments No change compared to prior EKG on 09/15/2024 Management Discussion w/another healthcare provider: Surgical Services Coordinator Discharge Plan Triage Chief Complaint: Dizziness ED Provider: Victorina Hallman Dx/Rx/DC Orders Clinical Impression: Vertigo, History of CVA (cerebrovascular accident), Aneurysm of internal carotid artery Instructions: ED Vertigo, Unspecified Prescriptions: New meclizine 12.5 mg tablet 12.5 mg PO Q6H PRN PRN (Reason: dizziness) Qty: 20 0RF No Action multivitamin Tablet 1 tab PO DAILY biotin 800 mcg tablet 800 mcg PO DAILY cholecalciferol (vitamin D3) 25 mcg (1,000 unit) capsule 50 mcg PO DAILY fluticasone propionate [Flonase Allergy Relief] 50 mcg/actuation spray,suspension 1 spray intranasal DAILY PRN (Reason: allergy symptoms) Rx Instructions: administer into each nostril levothyroxine 75 MCG tablet 75 mcg PO DAILY Rx Instructions: PT STATES SHE TAKES 1T QD EXCEPT SATURDAYS SHE TAKES 2 amlodipine 10 mg tablet 10 mg PO DAILY losartan 100 mg tablet 100 mg PO DAILY sertraline 100 mg tablet 100 mg PO Q24H omeprazole 40 mg capsule,delayed release(DR/EC) 40 mg PO DAILY Patient Comments: TAKE 1 CAPSULE BY MOUTH EVERY DAY montelukast [Singulair] 10 mg tablet 10 mg PO DAILY aspirin 81 mg Tablet,Chewable 81 mg PO BREAKFAST 30 Days Qty: 0 0RF acetaminophen 325 mg Tablet 650 mg PO Q6H PRN PRN (Reason: Pain 1-10 Or Fever >100.7) Qty: 0 0RF atorvastatin 40 mg tablet 40 mg PO QHS Qty: 30 0RF levothyroxine [Levo-T] 75 mcg tablet 150 mcg PO QWEEK Patient Comments: SATURDAYS pyridoxine (vitamin B6) [Vitamin B-6] 100 mg tablet 100 mg PO DAILY Primary Care Provider: Giovanna Ruggiero Referrals: [facility] [Outside] Giovanna Ruggiero, TRANSFORMER STOCK CLERK-C [Primary Care Provider] - Activity Restrictions/Additional Instructions: It is not clear if your vertigo is from an inner ear issue or a problem with the balance center of your brain. We did discuss admission for MRI however at this time you would prefer to follow-up outpatient. If you have any worsening symptoms, noticed a lack of coordination, vision changes, speech changes or numbness/weakness on one side of your body compared to the other please immediately return to the emergency room. Your CT also showed an subtle finding of a small aneurysm of the right internal carotid artery. This was discussed with neurosurgery at [facility] who were not concerned about it. You may follow-up not emergently with [facility] neurosurgery or other neurosurgeon of your choice discussed monitoring options. Print Language: Vietnamese Disposition Disposition: Home, Self Care Discharge Date/Time: 11/28/24 02:22
[2024-11-27 23:22] LABS: Prothrombin Time (Protime)PT. 12.2 SECONDS (11.7-14.9)
[2024-11-27 23:23] LABS: Partial Thromboplast Time 24.1 Seconds (24.1-36.2)
[2024-11-27 23:25] LABS: Anion Gap 13 (5-15); BUN 21 mg/dL (4-19); BUN/Creat Ratio 28.7 RATIO (10-20); Calcium,Total 9.4 mg/dL (7.6-11.0); Carbon Dioxide 24.3 mmol/L (21.0-32.0); Chloride 103 mmol/L (98-108); Estimated Creatinine Clearance 38.94 ml/min (50-250); Glucose 96 mg/dL (70-99); Potassium 4.2 mmol/L (3.3-5.1); Troponin T High Sensitivity 12 ng/L (<=14)
[2024-11-27 23:50] LABS: Mucous, Urine 0 SEEN /hpf (<or=2+); Red Blood Cells-Urine 0 SEEN /hpf (0-5)
[2024-11-28 00:01] VITALS: BP 155/86; PULSE 56; RESP 17; O2SAT 95
[2024-11-28 00:01] LABS: Color, Urine Straw (Yellow); Glucose, Dipstick Normal (Normal); Ketone-Dipstick Negative (Negative); Leukocyte Esterase-Dipstick 100 /ul (Negative); Nitrite-Dipstick Negative (Negative); Occult Blood-Urine 25 /ul (Negative); Protein-Dipstick 15 mg/dl (Negative); Specific Gravity, Urine 1.010 (1.002-1.030); Urine Bilirubin Dipstick Negative (Negative)
[2024-11-28 00:51] LABS: Squamous Epithelial Cells - UA 0-5 SEEN /hpf (5-10)
[2024-11-28 01:17] LABS: Troponin T High Sens 2 HR 17 ng/L (<=14)
[2024-11-28 02:00] VITALS: BP 127/52; PULSE 65; RESP 18; O2SAT 98
[2024-11-28 02:04] VITALS: BP 127/52; PULSE 65; RESP 18; TEMP 36.6; O2SAT 98
== END 2024-11-28 02:22 | disposition home or self-care (01) ==
PROVIDERS: Emergency Provider Emergency Medicine; PCP Nurse Practitioner Family; Visit Provider Emergency Medicine
DX: R42 Dizziness and giddiness (principal); D64.9 Anemia, unspecified; I10 Essential (primary) hypertension; E78.00 Pure hypercholesterolemia, unspecified; Z86.718 Personal history of other venous thrombosis and embolism; Z86.73 Personal history of transient ischemic attack (TIA), and cerebral infarction without residual deficits; E03.9 Hypothyroidism, unspecified; K21.9 Gastro-esophageal reflux disease without esophagitis; I67.1 Cerebral aneurysm, nonruptured; Z79.890 Hormone replacement therapy
CPT/HCPCS: 70496; 70498; 80048; 81001; 84484; 85025; 85610; 85730; 87086; 87088; 93005; 99285; Q9967; A4216

== ENCOUNTER → 2024-12-01 | Outpatient (CLI) | payer MEDICARE, SELFPAY ==
[2024-12-01 10:17] LABS: AST(SGOT) 22 U/L (<=31); Alanine Aminotransfer ALT/SGPT 18 U/L (<=34); Albumin, Serum 4.3 g/dL (3.4-4.8); Alkaline Phosphatase 139 U/L (35-104); Anion Gap 13 (5-15); BUN 20 mg/dL (4-19); BUN/Creat Ratio 28.5 RATIO (10-20); Calcium,Total 9.6 mg/dL (7.6-11.0); Carbon Dioxide 23.7 mmol/L (21.0-32.0); Chloride 105 mmol/L (98-108); Globulin 2.9 g/dL (2.2-4.2); Glucose 88 mg/dL (70-99); Magnesium 2.3 mg/dL (1.5-2.2); Potassium 4.0 mmol/L (3.3-5.1)
[2024-12-01 10:27] LABS: PTHIN 35 pg/mL (11-61)
[2024-12-03 14:09] LABS: Vitamin D 1,25-Dihydroxy 52.5 pg/mL (24.8-81.5)
== END | disposition home or self-care (01) ==
LOC: MTLAB 08:57
PROVIDERS: PCP Nurse Practitioner Family; Referring Provider Nurse Practitioner Family; Visit Provider Nurse Practitioner Family
DX: E03.9 Hypothyroidism, unspecified (principal); E55.9 Vitamin D deficiency, unspecified
CPT/HCPCS: 36415; 80053; 82652; 83735; 83970; 84100